=== PATIENT | female | born 1955 | race Caucasian/White ===

== ENCOUNTER 2020-03-30 09:57 | Outpatient (REF) | payer OTHER, SELFPAY ==
[2020-03-30 10:25] LABS: COVID-19 Test Positive (Negative)
== END 2020-03-30 09:58 | disposition home or self-care (01) ==
LOC: HO.EMPCOV 09:57
PROVIDERS: PCP Internal Medicine; Visit Provider Internal Medicine
DX: Z20.828 Contact with and (suspected) exposure to other viral communicable diseases (principal)
CPT/HCPCS: 87635; C9803

== ENCOUNTER → 2020-06-04 14:41 | Outpatient (BNVA) | payer MEDICARE, OTHER, SELFPAY | PROVIDERS: PCP Internal Medicine; Visit Provider Hospitalist | DX: B94.8 Sequelae of other specified infectious and parasitic diseases (principal); J40 Bronchitis, not specified as acute or chronic; R00.0 Tachycardia, unspecified; R01.1 Cardiac murmur, unspecified; Z86.16 Personal history of COVID-19 | CPT/HCPCS: 99202 ==

== ENCOUNTER 2020-06-09 11:30 | Outpatient (REF) | payer MEDICARE, OTHER, SELFPAY ==
[2020-06-09 12:17] LABS: MANUAL DIFF FLAG NO
[2020-06-09 12:21] LABS: Basophils Percent Auto 0.1 % (0-2); Hematocrit 43.6 % (37-47); Hemoglobin 14.6 g/dl (12.0-16.0); Imm Gran Abs Auto 0.05 X10*3/uL (0.00-0.03); Imm Gran Pct Auto 0.5 % (0.0-0.4); Lymphocytes Absolute Auto 1.1 X10*3/uL (1.2-4.9); Lymphocytes Percent Auto 10.2 % (20-40); Mean Corpuscular HGB Conc 33.5 g/dl (31.0-35.0); Mean Corpuscular Hemoglobin 31.5 pg (27.0-33.0); Mean Corpuscular Volume 94.2 fL (80-98); Monocytes Absolute Auto 0.4 X10*3/uL (0.1-1.2); Monocytes Percent Auto 3.7 % (2-11); Neutrophils Absolute Auto 8.9 X10*3/uL (2.0-8.3); Neutrophils Percent Auto 85.5 % (45-73); Platelet Count 478 X10*3/uL (160-400); Red Blood Count 4.63 X10*6/uL (4.20-5.50); Red Cell Distribution Width 12.9 % (11.0-16.0); White Blood Count 10.4 X10*3/uL (4.8-10.8)
[2020-06-09 12:28] LABS: D Dimer < 200 NG/ML
[2020-06-09 13:22] LABS: Anion Gap 15 (12-20); Blood Urea Nitrogen 26 mg/dL (9-16); Calcium 9.9 mg/dL (8.4-10.2); Carbon Dioxide 28 mmol/L (22-29); Chloride 100 mmol/L (96-108); Estimated Glomerular Filt Rate > 60; Glucose Random 106 mg/dL (60-115); Potassium 4.3 mmol/L (3.3-5.1); Sodium 139 mmol/L (135-145)
[2020-06-09 13:32] LABS: Erythrocyte Sedimentation Rate 6 MM/HR (0-20)
[2020-06-10 08:36] LABS: SARS COV2 IgG Positive (Negative)
[2020-06-10 18:17] LABS: Immunoglobulin E 732 kU/L (<OR=114)
== END 2020-06-09 11:31 | disposition home or self-care (01) ==
LOC: HO.LAB 11:30
PROVIDERS: PCP Internal Medicine; Visit Provider Hospitalist
DX: U07.1 COVID-19 (principal); J40 Bronchitis, not specified as acute or chronic
CPT/HCPCS: 36415; 80048; 82785; 85025; 85379; 85652; 86769

== ENCOUNTER → 2020-07-24 13:53 | Outpatient (BNVA) | payer MEDICARE, OTHER, SELFPAY | PROVIDERS: PCP Internal Medicine; Visit Provider Hospitalist | DX: J45.40 Moderate persistent asthma, uncomplicated (principal); J00 Acute nasopharyngitis [common cold]; Z79.899 Other long term (current) drug therapy | CPT/HCPCS: 99212 ==

== ENCOUNTER 2020-09-16 11:24 | Outpatient (REF) | payer MEDICARE, OTHER, SELFPAY ==
[2020-09-17 04:25] LABS: SARS COV2 IgG Positive (Negative)
== END 2020-09-16 11:25 | disposition home or self-care (01) ==
LOC: HO.LAB 11:24
PROVIDERS: PCP Internal Medicine; Visit Provider Hospitalist
DX: U07.1 COVID-19 (principal)
CPT/HCPCS: 36415; 86769

== ENCOUNTER 2020-11-17 14:06 | Outpatient (REF) | payer MEDICARE, OTHER, SELFPAY ==
[2020-11-18 08:29] LABS: SARS COV2 IgG Positive (Negative)
== END 2020-11-17 14:07 | disposition home or self-care (01) ==
LOC: HO.LAB 14:06
PROVIDERS: PCP Internal Medicine; Visit Provider Hospitalist
DX: B94.8 Sequelae of other specified infectious and parasitic diseases (principal)
CPT/HCPCS: 36415; 86769

== ENCOUNTER → 2020-11-23 14:37 | Outpatient (BNVA) | payer MEDICARE, OTHER, SELFPAY | PROVIDERS: PCP Internal Medicine; Visit Provider Hospitalist | DX: J41.1 Mucopurulent chronic bronchitis (principal); J18.9 Pneumonia, unspecified organism; L50.0 Allergic urticaria; B94.8 Sequelae of other specified infectious and parasitic diseases | CPT/HCPCS: 99212 ==

== ENCOUNTER → 2020-12-28 13:24 | Outpatient (BNVA) | payer MEDICARE, OTHER, SELFPAY | PROVIDERS: PCP Internal Medicine | DX: Z20.822 Contact with and (suspected) exposure to COVID-19 (principal) | CPT/HCPCS: 36415; 87635 ==

== ENCOUNTER 2021-02-09 12:09 | Outpatient (REF) | payer MEDICARE, SELFPAY ==
[2021-02-10 07:54] LABS: SARS COV2 IgG Positive (Negative)
== END 2021-02-09 12:10 | disposition home or self-care (01) ==
LOC: HO.LAB 12:09
PROVIDERS: PCP Internal Medicine; Visit Provider Hospitalist
DX: Z01.84 Encounter for antibody response examination (principal); B94.8 Sequelae of other specified infectious and parasitic diseases
CPT/HCPCS: 36415; 86769

== ENCOUNTER → 2021-02-19 13:14 | Outpatient (BNVA) | payer MEDICARE, OTHER, SELFPAY | PROVIDERS: PCP Internal Medicine; Visit Provider Hospitalist | DX: J45.41 Moderate persistent asthma with (acute) exacerbation (principal); L50.0 Allergic urticaria; J41.1 Mucopurulent chronic bronchitis; B94.8 Sequelae of other specified infectious and parasitic diseases; R00.0 Tachycardia, unspecified; Z87.891 Personal history of nicotine dependence; Z88.1 Allergy status to other antibiotic agents; J30.2 Other seasonal allergic rhinitis | CPT/HCPCS: 99212 ==

== ENCOUNTER 2021-05-21 15:03 | Outpatient (REF) | payer MEDICARE, OTHER, SELFPAY ==
[2021-05-21 15:31] LABS: MANUAL DIFF FLAG NO
[2021-05-21 15:54] LABS: Basophils Percent Auto 0.2 % (0-2); Eosinophils Percent Auto 0.1 % (0-4); Hematocrit 44.2 % (37.0-47.0); Hemoglobin 14.5 g/dl (12.0-16.0); Imm Gran Pct Auto 0.7 % (0.0-0.4); Lymphocytes Absolute Auto 1.1 X10*3/uL (1.2-4.9); Lymphocytes Percent Auto 7.4 % (20-40); Mean Corpuscular HGB Conc 32.8 g/dl (31.0-35.0); Mean Corpuscular Hemoglobin 31.3 pg (27.0-33.0); Mean Corpuscular Volume 95.5 fL (80.0-98.0); Mean Platelet Volume 10.9 fL (9.4-12.3); Monocytes Absolute Auto 0.6 X10*3/uL (0.1-1.2); Monocytes Percent Auto 3.6 % (2-11); Neutrophils Absolute Auto 13.3 x10*3/uL (2.0-8.3); Platelet Count 317 X10*3/uL (160-400); Red Blood Count 4.63 X10*6/uL (4.20-5.50); Red Cell Distribution Width 12.7 % (11.0-16.0); White Blood Count 15.1 X10*3/uL (4.8-10.8)
[2021-05-22 13:37] LABS: Immunoglobulin A 301 mg/dL (70-320); Immunoglobulin M 133 mg/dL (50-300)
[2021-05-24 17:17] LABS: Complement C3 127 mg/dL (83-193)
[2021-05-24 19:05] LABS: Immunoglobulin G Subclass 1 468 mg/dL (382-929); Immunoglobulin G Subclass 2 405 mg/dL (241-700); Immunoglobulin G Subclass 3 26 mg/dL (22-178); Immunoglobulin G Subclass 4 82.1 mg/dL (4-86); Immunoglobulin G Total 1058 mg/dL (600-1540)
[2021-05-24 22:32] LABS: Immunoglobulin E 2403 kU/L (<OR=114)
[2021-05-26 14:51] LABS: Tetanus Antitoxiod Antibody 4.67 IU/mL
== END 2021-05-21 15:04 | disposition home or self-care (01) ==
LOC: HO.LAB 15:03
PROVIDERS: PCP Internal Medicine; Visit Provider Allergy & Immunology
DX: J32.9 Chronic sinusitis, unspecified (principal)
CPT/HCPCS: 82784; 82785; 85025; 86160; 86317; 86774

== ENCOUNTER → 2021-05-24 15:06 | Outpatient (BNVA) | payer MEDICARE, OTHER, SELFPAY | PROVIDERS: PCP Internal Medicine; Visit Provider Hospitalist | DX: J45.41 Moderate persistent asthma with (acute) exacerbation (principal); J41.1 Mucopurulent chronic bronchitis; L50.0 Allergic urticaria; R01.1 Cardiac murmur, unspecified; B94.8 Sequelae of other specified infectious and parasitic diseases | CPT/HCPCS: 99212 ==

== ENCOUNTER 2021-06-18 12:40 | Outpatient (REF) | payer MEDICARE, OTHER, SELFPAY ==
[2021-06-18 13:10] LABS: Hemoglobin 14.5 g/dl (12.0-16.0); Mean Corpuscular Hemoglobin 31.4 pg (27.0-33.0); Mean Corpuscular Volume 95.2 fL (80.0-98.0); Mean Platelet Volume 9.1 fL (9.4-12.3); Platelet Count 601 X10*3/uL (160-400); Red Blood Count 4.62 X10*6/uL (4.20-5.50); Red Cell Distribution Width 13.1 % (11.0-16.0); White Blood Count 13.8 X10*3/uL (4.8-10.8)
[2021-06-18 13:46] LABS: Alanine Aminotransferase 15 U/L (0-31); Albumin Level 4.3 g/dL (3.5-5.0); Alkaline Phosphatase 111 U/L (39-117); Anion Gap 14 (12-20); Aspartate Amino Transferase 14 U/L (5-31); Bilirubin Total 0.9 mg/dL (0.0-1.0); Blood Urea Nitrogen 20 mg/dL (9-16); Calcium 10.3 mg/dL (8.4-10.2); Carbon Dioxide 28 mmol/L (22-29); Chloride 101 mmol/L (96-108); Cholesterol 213 mg/dL; Estimated Glomerular Filt Rate > 60; Glucose Random 150 mg/dL (60-115); HDL Cholesterol 61 mg/dL; Iron 120 mcg/dL (30-160); Potassium 4.6 mmol/L (3.3-5.1); Sodium 138 mmol/L (135-145); Total Protein 7.6 g/dL (6.5-8.0)
[2021-06-18 14:04] LABS: Ferritin 59 ng/mL (10-250); TSH reflex Free T4 0.47 uIU/mL (0.32-4.0)
[2021-06-18 14:17] LABS: Vitamin B12 397 pg/mL (200-900)
[2021-06-18 14:22] LABS: Percent Iron Saturation 31 % (15-50); Total Iron Binding Capacity 382 mcg/dL (228-428); Unsaturated Iron Binding 262 ug/dL
[2021-06-19 10:26] LABS: LDL Cholesterol Direct 142 mg/dL (<100)
== END 2021-06-18 12:41 | disposition home or self-care (01) ==
LOC: HO.LAB 12:40
PROVIDERS: PCP Internal Medicine; Visit Provider Internal Medicine
DX: Z00.00 Encounter for general adult medical examination without abnormal findings (principal); J32.9 Chronic sinusitis, unspecified; J30.9 Allergic rhinitis, unspecified; Z86.16 Personal history of COVID-19; Z85.828 Personal history of other malignant neoplasm of skin
CPT/HCPCS: 36415; 80053; 82306; 82465; 82607; 82728; 83540; 83718; 83721; 84443; 85027

== ENCOUNTER → 2021-07-01 11:09 | Outpatient (BNVA) | payer MEDICARE, OTHER, SELFPAY | PROVIDERS: PCP Internal Medicine; Visit Provider Hospitalist | DX: J41.1 Mucopurulent chronic bronchitis (principal); J45.41 Moderate persistent asthma with (acute) exacerbation; J32.9 Chronic sinusitis, unspecified; R01.1 Cardiac murmur, unspecified | CPT/HCPCS: 99212 ==

== ENCOUNTER 2021-07-23 13:29 | Outpatient (REF) | payer MEDICARE, OTHER, SELFPAY ==
[2021-07-23 13:57] LABS: MANUAL DIFF FLAG NO
[2021-07-23 14:13] LABS: Basophils Absolute Auto 0.1 X10*3/uL (0.0-0.2); Basophils Percent Auto 0.4 % (0-2); Eosinophils Absolute Auto 0.5 X10*3/uL (0.0-0.4); Eosinophils Percent Auto 3.7 % (0-4); Hematocrit 43.5 % (37.0-47.0); Hemoglobin 13.9 g/dl (12.0-16.0); Imm Gran Abs Auto 0.06 X10*3/uL (0.00-0.03); Imm Gran Pct Auto 0.4 % (0.0-0.4); Lymphocytes Absolute Auto 1.9 X10*3/uL (1.2-4.9); Lymphocytes Percent Auto 14.2 % (20-40); Mean Corpuscular Hemoglobin 30.9 pg (27.0-33.0); Mean Corpuscular Volume 96.7 fL (80.0-98.0); Mean Platelet Volume 9.5 fL (9.4-12.3); Monocytes Absolute Auto 0.8 X10*3/uL (0.1-1.2); Monocytes Percent Auto 5.8 % (2-11); Neutrophils Absolute Auto 10.1 x10*3/uL (2.0-8.3); Neutrophils Percent Auto 75.5 % (45-73); Platelet Count 416 X10*3/uL (160-400); Red Cell Distribution Width 13.1 % (11.0-16.0); White Blood Count 13.4 X10*3/uL (4.8-10.8)
== END 2021-07-23 13:30 | disposition home or self-care (01) ==
LOC: HO.LAB 13:29
PROVIDERS: PCP Internal Medicine; Visit Provider Hospitalist
DX: J32.9 Chronic sinusitis, unspecified (principal); J45.41 Moderate persistent asthma with (acute) exacerbation
CPT/HCPCS: 36415; 85025

== ENCOUNTER → 2021-08-06 10:04 | Outpatient (BNVA) | payer MEDICARE, OTHER, SELFPAY | PROVIDERS: PCP Internal Medicine; Visit Provider Hospitalist | DX: J45.909 Unspecified asthma, uncomplicated (principal) | CPT/HCPCS: 99211 ==

== ENCOUNTER → 2021-08-27 14:01 | Outpatient (REF) | payer MEDICARE, OTHER, SELFPAY ==
--- NOTE | 2021-08-27 14:04 | CA_ITS ---
Transthoracic Echocardiogram Patient (Last, First, Middle): Michelle Carrillo A Gender: Female Date of : 1955 Age: 66 Procedure Date: 08/27/2021 Procedure Type: Transthoracic Echocardiogram Location: OP Height: 157.48 cm Weight: 49.9 kg BSA: 1.48 m2 Heart Rate: bpm BP: 118 / 58 mmHg Linux Kernel Developer: Referring MD: Abhijit Mary MD Symptoms: I27.20 - Pulmonary hypertension, unspecified Study Quality: Fair ECG Rhythm: Sinus Conclusions: - The left ventricular systolic function is normal. The calculated ejection fraction is 64% by biplane method. - No obvious valvular pathology seen on this study. - The pulmonary artery systolic pressure is normal. Findings Left Ventricle Normal left ventricular cavity size. There is normal left ventricular wall thickness. The left ventricular systolic function is normal. The calculated ejection fraction is 64% by biplane method. There is no evidence of regional wall motion abnormalities. Diastolic function is normal for age. Right Ventricle Normal right ventricular cavity size and systolic function. Atria Both atria are normal in size. Aortic Valve The aortic valve was not well visualized. There is no aortic valve stenosis. There is no aortic valve regurgitation. Mitral Valve The mitral valve appears normal. There is no mitral valve regurgitation. There is no mitral valve stenosis. Pulmonic Valve The pulmonic valve is likely normal. Tricuspid Valve There is trace tricuspid valve regurgitation. The pulmonary artery systolic pressure is normal. Great Vessels The aortic annulus, sinuses of valsalva, and asc aorta are normal in size. Venous The inferior vena cava is normal in size and collapses greater than 50% with inspiration. Pericardium/Pleural There is no evidence of pericardial effusion. Prior Study Comparison No prior study available for comparison. Recommendations, Care & Conclusions No obvious valvular pathology seen on this study. Measurements 2D Linear Measurements IVSd: 0.88 0.6-0.9/0.6-1.0 cm LVIDd: 3.68 3.9-5.3/4.2-5.9 cm LVIDd Index: 2.49 2.4-3.2/2.2-3.1 cm/m2 LVIDs: 2.07 2.0-3.6 cm LVPWd: 0.98 0.7-1.1 cm Ao Root: 2.90 2.1-3.5 cm LA Diam: 2.90 2.7-3.8/3.0-4.0 cm LAIDs Index: 1.96 1.5-2.3 cm/m2 LV Mass: 125.77 67-162/88-224 g LV Mass Index: 84.98 43-95/49-115 g/m2 LVOT Diam: 2.00 3.0+(-)1.3 cm 2D Systolic Function EF 4C: 65.40 >55% EF 2C: 60.80 >55% EF BiP: 63.60 >55% Mitral Valve MV Pk E: 0.83 MV PK A: 0.73 MV Decel Time: 176.00 E/A: 1.10 E'Lateral: 7.62 E'Medial: 6.09 E/E' Med: 13.70 E/E' Lat: 10.90 PHT: 52.00 MVA PHT: 4.23 Decel [place]: 4.73 Aortic Valve AoV Pk Alexis: 1.48 AoV Mn Alexis: 0.98 AoV VTI: 0.27 AoV Pk Grad: 9.00 Aov Mn Grad: 5.00 JOSE Cont.VTI: 2.29 LVOT LVOT Pk Alexis: 1.16 LVOT Mn Alexis: 0.70 LVOT VTI: 0.20 LVOT Pk Grad: 5.00 LVOT Mn Grad: 2.00 LVOT Diam: 2.00 LVOT Area: 3.14 Diastolic Function MV Pk E: 0.83 MV Pk A: 0.73 E/A: 1.10 E'Medial: 6.09 E/E' Med: 13.70 E' Laterial: 7.62 E/E' Lat: 10.90 Right Ventricle TAPSE (mm): 27.00 TVS' Alexis: 14.00 Tricuspid Valve TR Pk Alexis: 1.85 TR Pk Grad: 14.00 RA Press: 3.00 RVSP: 17.00 Great Vessels Aorta Ao Root-2D: 2.90 2.0-3.7 cm Ao Asc: 2.70 2.1-3.4 cm Pulmonary Valve PV Pk Alexis: 1.29 Peak PV Grad: 7.00 Updated in Other Vendor System with Status of Final Domingo Borden MD electronically signed on 08/28/2021 11:07:24 AM with status of Final
== END ==
LOC: HO.CARD 14:01
PROVIDERS: PCP Internal Medicine; Visit Provider Hospitalist
DX: R00.0 Tachycardia, unspecified (principal); R01.1 Cardiac murmur, unspecified; I27.20 Pulmonary hypertension, unspecified
CPT/HCPCS: 93306

== ENCOUNTER → 2021-09-14 10:30 | Outpatient (BNVA) | payer MEDICARE, OTHER, SELFPAY | PROVIDERS: PCP Internal Medicine; Visit Provider Hospitalist | DX: J45.50 Severe persistent asthma, uncomplicated (principal); J32.9 Chronic sinusitis, unspecified; R01.1 Cardiac murmur, unspecified; L30.9 Dermatitis, unspecified | CPT/HCPCS: 99212 ==

== ENCOUNTER → 2021-12-29 10:45 | Outpatient (BNVA) | payer MEDICARE, OTHER, SELFPAY | PROVIDERS: PCP Internal Medicine; Visit Provider Hospitalist | DX: J45.50 Severe persistent asthma, uncomplicated (principal); J32.9 Chronic sinusitis, unspecified; R01.1 Cardiac murmur, unspecified; L30.9 Dermatitis, unspecified | CPT/HCPCS: 99212 ==

== ENCOUNTER → 2022-03-02 11:29 | Outpatient (BNVA) | payer MEDICARE, OTHER, SELFPAY | PROVIDERS: PCP Internal Medicine; Visit Provider Hospitalist | DX: J45.50 Severe persistent asthma, uncomplicated (principal); J01.90 Acute sinusitis, unspecified; R01.1 Cardiac murmur, unspecified; L30.9 Dermatitis, unspecified | CPT/HCPCS: 99212 ==

== ENCOUNTER 2022-03-08 13:20 | Outpatient (REF) | payer MEDICARE, OTHER, SELFPAY ==
--- NOTE | ~2022-03-08 | MM_ITS ---
EXAMINATION: BONE DENSITOMETRY CLINICAL INDICATION: Long-term (current) use of systemic steroids. COMPARISON: This is the patient's baseline examination. TECHNIQUE: Using a Sounday DXA System (software version: 13.1) manufactured by [employer], dual-energy x-ray absorptiometry was performed of the lumbar spine and left hip. The images are of good technical quality. Summary results are attached. FINDINGS: AP SPINE L1-L4: BMD 0.783 g/cm2, Z-score -1.1, T-score -3.3, osteoporosis. LEFT FEMUR, NECK: BMD 0.658 g/cm2, Z-score -0.8, T-score -2.7, osteoporosis. LEFT FEMUR, TOTAL: BMD 0.661 g/cm2, Z-score -1.0, T-score -2.7, osteoporosis. IDENTIFIED RISK FACTORS: Menopause. HISTORY OF FRACTURE: None listed. MEDICATIONS: Calcium supplement and/or multivitamin. Vitamin D. MM/XR DEXA axial skeleton IMPRESSION: 1. DIAGNOSIS: Osteoporosis based on the lowest T-score value of -3.3 in the lumbar spine applying World Health Organization criteria. 2. 10-YEAR FRACTURE RISK PREDICTION, FRAX: According to the guidelines, FRAX calculation should only be performed on patients in the osteopenia bone density category.?Therefore, FRAX was not performed on this patient.? 3. Treatment Recommendations: NOF guidelines recommend consideration for treatment in postmenopausal women and men age 50 and older presenting with the following: -A hip or vertebral (clinical or morphometric) fracture. -T-score less than or equal to -2.5 at the femoral neck or spine after appropriate evaluation to exclude secondary causes. -Low bone mass at the hip or spine and a 10-year fracture probability by FRAX of greater than or equal to 3% for hip fracture or greater than or equal to 20% for major osteoporotic fracture based on the [place] adapted WHO algorithm. 4. Other Recommendations: All treatment decisions require clinical judgment and consideration of individual patient factors, including patient preferences, comorbidities, previous drug use, risk factors not captured in the FRAX model (e.g. frailty, falls, vitamin D deficiency, increased bone turnover, interval significant decline in bone density) and possible under or overestimation of fracture risk by FRAX. Additional medical evaluation for secondary cause of low bone mineral density may be appropriate. FUTURE SCAN RECOMMENDATION: People with diagnosed cases of osteoporosis or at high risk for fracture should have regular bone mineral density tests. For patients eligible for Medicare, routine testing is allowed once every 2 years. The testing frequency can be increased to one year for patients who have rapidly progressing disease, those who are receiving or discontinuing medical therapy to restore bone mass, or have additional risk factors.
== END 2022-03-08 13:21 | disposition home or self-care (01) ==
LOC: HO.MAMMO 13:20
PROVIDERS: PCP Internal Medicine; Visit Provider Allergy & Immunology
DX: Z13.820 Encounter for screening for osteoporosis (principal); Z78.0 Asymptomatic menopausal state
CPT/HCPCS: 77080

== ENCOUNTER 2022-03-14 13:28 | Outpatient (REF) | payer MEDICARE, OTHER, SELFPAY ==
[2022-03-14 13:49] LABS: MANUAL DIFF FLAG NO
[2022-03-14 14:28] LABS: Basophils Percent Auto 0.3 % (0-2); Hematocrit 42.8 % (37.0-47.0); Imm Gran Abs Auto 0.04 X10*3/uL (0.00-0.03); Imm Gran Pct Auto 0.4 % (0.0-0.4); Lymphocytes Absolute Auto 1.2 X10*3/uL (1.2-4.9); Lymphocytes Percent Auto 11.2 % (20-40); Mean Corpuscular HGB Conc 32.7 g/dl (31.0-35.0); Mean Corpuscular Hemoglobin 30.9 pg (27.0-33.0); Mean Corpuscular Volume 94.5 fL (80.0-98.0); Mean Platelet Volume 9.7 fL (9.4-12.3); Monocytes Absolute Auto 0.5 X10*3/uL (0.1-1.2); Monocytes Percent Auto 4.4 % (2-11); Neutrophils Absolute Auto 8.8 x10*3/uL (2.0-8.3); Neutrophils Percent Auto 83.7 % (45-73); Platelet Count 435 X10*3/uL (160-400); Red Blood Count 4.53 X10*6/uL (4.20-5.50); Red Cell Distribution Width 12.9 % (11.0-16.0); White Blood Count 10.5 X10*3/uL (4.8-10.8)
[2022-03-14 15:21] LABS: Alanine Aminotransferase 18 U/L (0-31); Albumin Level 4.1 g/dL (3.5-5.0); Alkaline Phosphatase 87 U/L (39-117); Anion Gap 17 (12-20); Aspartate Amino Transferase 17 U/L (5-31); Bilirubin Total 1.2 mg/dL (0.0-1.0); Blood Urea Nitrogen 21 mg/dL (9-16); Calcium 9.3 mg/dL (8.4-10.2); Carbon Dioxide 21 mmol/L (22-29); Chloride 105 mmol/L (96-108); Cholesterol 210 mg/dL; Estimated Glomerular Filt Rate > 60; Ferritin 101 ng/mL (10-250); Glucose Random 160 mg/dL (60-115); HDL Cholesterol 63 mg/dL; Iron 117 mcg/dL (30-160); Percent Iron Saturation 39 % (15-50); Potassium 4.5 mmol/L (3.3-5.1); Sodium 138 mmol/L (135-145); Total Iron Binding Capacity 297 mcg/dL (228-428); Total Protein 6.8 g/dL (6.5-8.0); Unsaturated Iron Binding 180 ug/dL; Vitamin D 25-OH Total 44.6 ng/mL (>30)
[2022-03-14 15:41] LABS: Vitamin B12 311 pg/mL (200-900)
[2022-03-15 08:47] LABS: LDL Cholesterol Direct 136 mg/dL (<100)
== END 2022-03-14 13:29 | disposition home or self-care (01) ==
LOC: HO.LAB 13:28
PROVIDERS: PCP Internal Medicine; Visit Provider Internal Medicine
DX: Z00.00 Encounter for general adult medical examination without abnormal findings (principal); J30.9 Allergic rhinitis, unspecified; J32.9 Chronic sinusitis, unspecified; Z86.16 Personal history of COVID-19; Z85.828 Personal history of other malignant neoplasm of skin
CPT/HCPCS: 36415; 80053; 82306; 82465; 82607; 82728; 83540; 83718; 83721; 84443; 85025

== ENCOUNTER → 2022-05-18 11:36 | Outpatient (BNVA) | payer MEDICARE, OTHER, SELFPAY | PROVIDERS: PCP Internal Medicine; Visit Provider Hospitalist | DX: J45.50 Severe persistent asthma, uncomplicated (principal); J32.9 Chronic sinusitis, unspecified; R01.1 Cardiac murmur, unspecified; L30.9 Dermatitis, unspecified | CPT/HCPCS: 99212 ==

== ENCOUNTER 2022-06-27 13:25 | Outpatient (REF) | payer MEDICARE, OTHER, SELFPAY ==
[2022-06-27 15:37] LABS: CT PCR NOT DETECTED (Not Detect.); NG PCR NOT DETECTED (Not Detect.)
[2022-06-28 14:09] LABS: HIV AB/AG Nonreactive (Nonreactive); HIV Num 1 0.07 S/CO (0.00-0.99); ~HepC Num1 0.18 S/CO (0.00-0.79); ~Hepatitis C Antibody Nonreactive (Nonreactive)
[2022-06-28 14:25] LABS: Syphilis Screen Nonreactive (Nonreactive)
[2022-07-04 22:43] LABS: Herpes Simplex Type 1 IgG <0.90 index; Herpes Simplex Type 2 IgG <0.90 index
== END 2022-06-27 13:26 | disposition home or self-care (01) ==
LOC: HO.LAB 13:25
PROVIDERS: PCP Internal Medicine; Visit Provider Internal Medicine
DX: Z11.4 Encounter for screening for human immunodeficiency virus [HIV] (principal); Z11.59 Encounter for screening for other viral diseases; Z20.2 Contact with and (suspected) exposure to infections with a predominantly sexual mode of transmission
CPT/HCPCS: 0353U; 86695; 86696; 86780; 86803; 87389

== ENCOUNTER 2023-02-28 15:16 | Outpatient (REF) | payer MEDICARE, OTHER, SELFPAY ==
--- NOTE | ~2023-02-28 | XR_ITS ---
EXAMINATION: XR CHEST CLINICAL INFORMATION: Cough, rhonchi left lung. COMPARISON: None available. TECHNIQUE: 2 views of the chest were obtained. FINDINGS: Normal appearance of the cardiomediastinal structures. No effusions or pneumothoraces. Mild apical pleural-parenchymal scarring the lungs is noted. No focal pulmonary consolidation identified. Grossly normal pattern of pulmonary vasculature is visualized. Mild multilevel anterior endplate osteophytosis of the thoracic spine noted. Mild flattening of the hemidiaphragms is noted (lateral cord 2.5 cm) and prominence of the retrosternal/anterior upper lung zone lung volumes is noted. XR/XR chest 2V IMPRESSION: *No acute cardiopulmonary abnormalities identified. No focal pulmonary consolidation. No evidence of active pulmonary edema. *Mildly elevated lung volumes. Findings may represent COPD. *Chronic appearing biapical pleural parenchymal scarring of the lungs.
== END 2023-02-28 15:17 | disposition home or self-care (01) ==
LOC: HO.XRAY 15:16
PROVIDERS: PCP Internal Medicine; Visit Provider Internal Medicine
DX: R05.9 Cough, unspecified (principal)
CPT/HCPCS: 71046

== ENCOUNTER 2023-03-10 10:32 | Outpatient (AMB) | payer MEDICARE, OTHER, SELFPAY ==
[2023-03-10 10:51] VITALS: PULSE 88; O2SAT 99; BMI 19.2
--- NOTE | 2023-03-10 10:51 | A.OFFVIS_ITS ---
Intake Vital Signs 03/10/23 10:51 Height 5 ft 2 in Weight 105 lb BMI 19.2 Pulse 88 Pulse Source Pulse Oximeter Pulse Oximetry (%) 99 Oxygen Delivery Method Room Air Intake Visit Reasons: coughing/wheezing Clean Room Operator Required: No Allergies sulfamethoxazole [From Bactrim] Allergy (Unknown, Verified 03/10/23 10:52) Unknown trimethoprim [From Bactrim] Allergy (Unknown, Verified 03/10/23 10:52) Unknown Bactrum Allergy (Severe, Uncoded 03/10/23 10:52) Rash Seasonal Allergy (Severe, Uncoded 03/10/23 10:52) Rash HPI HPI Comments History of Present Illness Details The patient is a 67-year-old woman who was been very healthy until recently when she was diagnosed with COVID-19 infection approximately 8 weeks ago. 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 She did complaint of some mild shortness of breath while she was sick. However, her symptoms were minimal and she was able to continue with her activities of daily living. Once she completed her course 18 she was able to go back to work and also back to the gym as she spends a lot of time the gym. However, several weeks ago she noticed that she was having worsening cough and shortness of breath. She went to an urgent care there she was sent to [place] because of concerns of blood clots. She did have additional labs demonstrating a negative D-dimer. Her lower extremity Dopplers were negative for any clots. She had an x-ray done demonstrating some minimal atelectasis in some minimal airspace disease. The patient was treated with a course of azithromycin x2 and then was given a course of Augmentin. More recently she went back to urgent care because of ongoing worsening cough productive sputum with greenish color. She was evaluated on exam does concerns of bronchopneumonia. The patient was given another course of prednisone in addition to that she was given a course of levofloxacin that she will start if she was no better. At this point the patient is taking for total 40 mg of prednisone and has not started antibiotics as of yet. She was noted to be significantly tachycardic in the office so therefore we had to go for 6 minutes walk test. Heart rate did increase to 129. The patient was short of breath but not hypoxic. She maintain a pulse ox of 96%. At this point will treat the patient for bronchitis specially since her white count was elevated had a left shift when she went to [facility] for blood work. Based on the postviral super infections to because content this will be Staph aureus and also Streptococcus. 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 Doxycycline would be a good option for her to treat these organisms at this time. If the patient is not better in the next few days and she is going to undergo additional blood work. 05/24/2021 the patient is here for a pulmonary follow-up visit. Since we last spoke again she became sick with a sinus congestion and sinus pressure. she did follow-up with an loading unit operator powder charging. She was placed on Augmentin. While having her symptoms she started developing worsening chest tightness and also started prednisone taper from prednisone she had home already. On prednisone the patient feels a lot better. We again reviewed her blood work demonstrating sig nificant elevation of her igE. therefore, she is going to undergo formal allergy testing and also additional laboratory data and to assess her immune system. Currently her respiratory status is stable while on the prednisone. We did talk about her ongoing prednisone use that is not healthy. Based on her significant allergies and elevations in her IgE she will be a good candidate for biologic therapy. However, now that she is working closely with Allergy or allow her to be further assessed and evaluated. in the meantime she continues with her respiratory medications with good effect. 07/01/2021 the patient is here for a pulmonary follow-up visit. She is having hard time with her sinus congestion and chest tightness again. She feels significantly congested and has a hard time breathing. She is also having increasing coughing. She did have additional blood work done by Allergy. Her IgE levels even higher now about 2500. Her eosinophils are within normal limits. This consistent with allergic asthma and allergic rhinosinusitis. The patient has had allergy testing with significant allergies to mold in addition to environmental allergens. She does not have any pets at home at this time. He denies any mold in her house at this time. Still her respiratory symptoms have been getting worse. She is scheduled to undergo a CT scan of the sinuses from her allergy evaluation. No evidence of any nasal polyps on my examination. She continues to struggle and will require additional prednisone today. Therefore I will start the process to get her on Xolair. She can follow up in see if she will get allergy shots like she did in the past. Unfortunately after 4 years of allergy shots he did not have any relief so it is something that she needs to consider. She also has using the Neti bottle. However, she is using well water. Explained to her how seriously dangerous status. She needs to get distilled water only for her dating bottle. She is going to continue with respiratory therapy. 09/14/2021 the patient is here for pulmon mariel follow-up visit. Since we last spoke she did start the Dupixent. She did already receive about a month worth of medication. Unfortunate she did developed the flu and subsequently developed a asthma exacerbation along with sinusitis. Therefore she was placed again on prednisone and also antibiotics. She is currently on 20 mg of prednisone. She was evaluated by her laborer stores and she agreed on the start of the Dupixent which I believe will be effective for her once she improves from her sinusitis. She continues on her respiratory therapy including Symbicort. She has not had to use her rescue inhaler as often now. Initially she did go to the ER because of chest tightness and wheezing when she was diagnosed with flu A. 12/29/2021 the patient is here for a pulmonary follow-up visit. Since we last spoke the patient started developing sinusitis again. She did follow-up with her loading unit operator powder charging to start her on a course of antibiotics and also on Medrol Henry. She really was not feeling any better. She does have her ENT appointment coming up in January. In the meantime will start her on Neti bottle with dimple angeles to help her with her significant inflammation. Subsequently after that she started working on the yd and she developed a rash primarily of her upper extremities and also has some areas of rash in her abdomen and inguinal area. Some of the rash especially in her hands and forearms almost have a nodular component and also like vesicular in nature. Although the nap pustules and does not quite look like monkey pox. Denies any fevers or chills. She will continue monitoring closely for any evidence of any pustules. The rash is not painful either. It was itchy but is getting a little better. Since developing the rash she went to urgent care and she was prescribed higher dose of prednisone. On in the meantime she continues on Dupixent Dupixent has been very helpful in helping her with her significant eczema and also asthma symptoms. However, has not completely resolved her issues. She will follow-up with ENT to see if they can help with her significant sinusitis and ultimately if the patient is not better will consider different biologic such as Tezspire. also to note since we last spoke the patient developed acute appendicitis and she did have surgery a [facility]. She healed very well and doing well after that surgery. 03/02/2022 the patient is here again for sick visit. Recently she was evaluated by her loading unit operator powder charging to start her again on prednisone for sinusitis. She was given a short course because the patient is concerned about adverse side effects. Although initially she felt better symptoms are now worse again she has severe nasal congestion difficulty breathing postnasal drip cough. The Dupixent initially was effective for her but seems to be not as effective anymore for her sinuses. Her lungs continue to respond positively to it. My suspicion is that she needs to undergo a surgical intervention in order to get the most effect from the Dupixent. The patient does have significant nasal congestion at this time with inflammation and turbinate and also exudate if discharged. Unfortunately because of her nasal congestion the patient restarted the Afrin. I did recommend that she stop using the Afrin. She continues uses Sudafed and continues to use her nasal sprays Neti bottle with budesonide. The patient is maximized on her respiratory therapy and also nasal therapy and allergy therapy. I believe that the only reasonable option right now is a surgical intervention. Will reach out to her ENTs office to see if we can have her be evaluated potential surgery soon. In the meantime I will give another course of doxycycline and give her a longer course of prednisone at a lower dose. 05/18/2022 the patient is here for a pulm onary follow-up visit. The patient is feeling a lot better. Her sinuses are feeling significantly improved. She is finally responding well to the Dupixent. She continues use the Neti bottle with budesonide and also using her other nasal therapy. Her Symbicort she has not required. She has not required any prednisone since the last time she was provided with. She did require a short course of antibiotics for sinusitis several months ago but otherwise she has been good. The patient has been avoiding Afrin which is important as well. She is going to continue Dupixent at this time. The patient overall is doing well so therefore will continue to monitor closely on her current therapy. No imaging or laboratory studies at this time. 03/10/2023 the patient is here for a sic k visit. Apparently a month ago she traveled to [facility]. There she was exposed to sick contacts and developed a respiratory illness. Subsequently after that she started having worsening chest tightness and wheezing. She has also had worsening cough moderate severity sometimes productive. She did get a course of antibiotics with no significant improvement. The patient has been using her rescue inhaler. She does have a nebulizer which she has not been using it. She did test negative for COVID. I did tell the patient's likely RSV. She did have a chest x-ray which I personally reviewed demonstrating some slight micro nodular densities on the right suggesting some degree of bronchiolitis that will go along with RSV. The patient is willing to go on a course of prednisone. She is also not vaccinated for strep pneumo so therefore will give her a course of doxycycline to treat for both staph and strep postviral bacterial infections. The patient will start using her nebulizer. I will make sure to send medications to the pharmacy. If the patient is no better she will call us for further evaluation. [facility] Medical History (Updated 03/10/23 @ 13:07 by Abhijit Mary MD) Eczema Sinusitis Asthma Bronchitis, mucopurulent recurrent Allergic urticaria Reactive airway disease Murmur Tachycardia Post-COVID syndrome Bronchitis COVID-19 Social History (Updated 02/19/21 @ 13:24 by HANS Francis) Patient Tobacco Use Status: Former Tobacco user Tobacco use type: Cigarette Years Smoked: 20+ years Review of Systems Const Denies chills, Reports fatigue and Denies night sweats ENT Denies change in voice, Denies lip swelling, Denies mouth pain, Reports nasal congestion, Denies nasal discharge, Denies post nasal drip, Denies sinus pain, Denies sinus pressure, Reports sore throat, Denies throat swelling and Denies tongue swelling Card Denies chest pain Resp Reports change in phlegm color (green), Reports chest congestion, Reports cough, Denies hemoptysis, Denies pain on inspiration, Denies pain with cough and Reports wheezing GI Denies abdominal pain Musc Denies no additional complaints Skin/Breast Reports rash Neuro Denies Neuro-related abnormal movements Psych Denies no additional complaints Endo Reports fatigue Vincent/Lymph Denies easy bleeding and Denies lymphadenopathy Aller/Immun Denies urticaria, Denies lip swelling, Reports seasonal rhinorrhea, Denies throat swelling, Denies tongue swelling and Reports wheezing Physical Exam Vital Signs: Last Vital Signs Pulse 88 03/10/23 10:51 Pulse Ox 99 03/10/23 10:51 Oxygen Delivery Method Room Air 03/10/23 10:51 BMI result Body Mass Index 19.2 Const General: alert HEENT General nose exam: Abnormal mucous membranes and turbinates present erythematous on the left and Nasal discharge present purulent Throat: Yes postnasal drainage and Yes cobblestoning Neck Neck: Yes normal visual inspection, Yes full ROM and Yes no lymphadenopathy Chest Chest palpation & inspection: normal inspection of the chest Resp Effort & Inspection: normal respiratory effort and prolonged expiratory phase Auscultation: no rhonchi, wheezes and diminished lung sounds Cardio Rate: regular rate and tachycardic Rhythm: regular rhythm Heart sounds: S1 normal heart sound present, S2 normal heart sound present and Murmur heart sound present systolic II/ and at the right sternal border GI Palpation (GI): Soft to palpation and nontender Auscultation: normal bowel sounds Skin Rashes: rashes noted ( Primarily on both hands and forearms appears to be erythematous/popules) Assessment & Plan Assessment & Plan (1) Asthma: Code(s): J45.909 - Unspecified asthma, uncomplicated Qualifiers: Asthma complication type: with acute exacerbation Asthma persistence: persistent Asthma severity: severe Qualified Code(s): J45.51 - Severe persistent asthma with (acute) exacerbation (2) Murmur: Comment: ECHO was WNL, trivial TR Code(s): R01.1 - Cardiac murmur, unspecified (3) Eczema: Code(s): L30.9 - Dermatitis, unspecified Qualifiers: Eczema type: flexural Qualified Code(s): L20.82 - Flexural eczema (4) Bronchiolitis: Code(s): J21.9 - Acute bronchiolitis, unspecified Plan Start Prednisone taper start Doxycycline Continue Symbicort twice a day as needed short-acting beta agonist as needed Nebulize therapy fluticasone nasal spray continue Dupixent ENT following F/U with Allergy F/U 6-8 months Medications: New prednisone PO daily; Take 2 tabs daily x 5 days, then 1 tablet daily x 5 days 10 days 15 tabs 0RF doxycycline monohydrate 100 mg PO BID 14 days 28 tabs 0RF Refilled albuterol sulfate 2.5 mg (3 mL) inhalation Q6H PRN 90 mL 11RF shortness of breath or wheezing 30 days Coding Level of Care Code Est Pt Level 4 (81074) Diagnoses Severe persistent asthma with acute exacerbation J45.51 Asthma complication type: with acute exacerbation Asthma persistence: persistent Asthma severity: severe Murmur R01.1 Flexural eczema L20.82 Eczema type: flexural Bronchiolitis J21.9 Time Spent (min) 16
== END 2023-03-10 11:05 | disposition home or self-care (01) ==
PROVIDERS: PCP Internal Medicine; Visit Provider Hospitalist
DX: J45.51 Severe persistent asthma with (acute) exacerbation (principal); R01.1 Cardiac murmur, unspecified; L20.82 Flexural eczema; J21.9 Acute bronchiolitis, unspecified
CPT/HCPCS: 99214

== ENCOUNTER → 2023-03-10 10:32 | Outpatient (BNVA) | payer MEDICARE, OTHER, SELFPAY | PROVIDERS: PCP Internal Medicine; Visit Provider Hospitalist | DX: J45.51 Severe persistent asthma with (acute) exacerbation (principal); R01.1 Cardiac murmur, unspecified; J21.9 Acute bronchiolitis, unspecified; L20.82 Flexural eczema | CPT/HCPCS: 99212 ==

== ENCOUNTER 2023-05-05 12:29 | Outpatient (REF) | payer MEDICARE, OTHER, SELFPAY ==
[2023-05-09 14:44] LABS: HCV Log PCR <1.18 NOT DETECTED Log IU/mL (NOT DETECTED); HepC Viral Load <15 NOT DETECTED IU/mL (NOT DETECTED)
[2023-05-09 18:49] LABS: Herpes Simplex Type 1 IgG <0.90 index
== END 2023-05-05 12:30 | disposition home or self-care (01) ==
LOC: HO.LAB 12:29
PROVIDERS: PCP Internal Medicine; Visit Provider Acupuncturist
DX: Z20.2 Contact with and (suspected) exposure to infections with a predominantly sexual mode of transmission (principal)
CPT/HCPCS: 0353U; 86695; 86696; 86780; 87389; 87522

== ENCOUNTER 2023-06-23 11:51 | Outpatient (REF) | payer MEDICARE, OTHER, SELFPAY | END 2023-06-23 11:52 | disposition home or self-care (01) | LOC: HO.MRI 11:51 | PROVIDERS: PCP Internal Medicine; Visit Provider Internal Medicine | DX: Z13.89 Encounter for screening for other disorder (principal) ==

== ENCOUNTER 2023-07-03 13:00 | Outpatient (RCR) | payer MEDICARE, OTHER, SELFPAY | END 2023-07-18 11:05 | disposition home or self-care (01) | LOC: HO.PT 13:00 | PROVIDERS: PCP Internal Medicine; Visit Provider Physician Assistant | DX: S46.211D Strain of muscle, fascia and tendon of other parts of biceps, right arm, subsequent encounter (principal) | CPT/HCPCS: 97110; 97161 ==

== ENCOUNTER 2023-12-11 13:43 | Outpatient (AMB) | payer MEDICARE, OTHER, SELFPAY ==
[2023-12-11 13:46] VITALS: BP 122/64; PULSE 85; O2SAT 98; BMI 19.8
--- NOTE | 2023-12-11 13:46 | A.OFFPC_ITS ---
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 Allergies sulfamethoxazole [From Bactrim] Allergy (Unknown, Verified 12/11/23 13:51) Unknown trimethoprim [From Bactrim] Allergy (Unknown, Verified 12/11/23 13:51) Unknown Bactrum Allergy (Severe, Uncoded 12/11/23 13:51) Rash Seasonal Allergy (Severe, Uncoded 12/11/23 13:51) Rash Tobacco use date assessed: 12/11/23 Fall risk assessment: No Falls in past year Last assessed Fall Risk: 12/11/23 Dental Screening Dental Screen Date: 12/11/23 Did you have a dental visit in the last 12 months?: Yes Did you have a dental problem in the last 6 months where you did not have access to dental care?: No Was dental information given to patient?: Patient has dentist HPI HPI Comments History of Present Illness Details The patient is a 68-year-old female with a past medical history of allergies, chronic sinusitis, eczema, history of BCC, osteoporosis, TMJ presenting to [facility] care. She was previously followed at Dr. Hailey Kent Chronic sinusitis/allergic rhinitis: Sinuses fairly baseline. Denies shortness of breath. 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 NAD EYES: EOMI. Anicteric. HENT: Moist mucous membranes. No scleral icterus. No cervical lymphadenopathy. LUNGS: Clear to auscultation bilaterally. CARDIOVASCULAR: Regular rate and rhythm. No murmur. No JVD. ABDOMEN: Soft, non-tender +bs EXTREMITIES: No edema. Non-tender. SKIN: No rashes or lesions. Warm. NEUROLOGIC: No focal neurological deficits. CN II-XII grossly intact PSYCHIATRIC: Cooperative. Appropriate mood and affect [facility] Medical History Eczema Sinusitis Asthma Bronchitis, mucopurulent recurrent Allergic urticaria Reactive airway disease Murmur Tachycardia Post-COVID syndrome Bronchitis COVID-19 Surgical History History of appendectomy Family History Mother Diabetes Lymphoma Father Lung cancer Alzheimer disease Maternal Grandmother Congestive heart failure Maternal Grandfather Diabetes Social History Household Members: None Housing: House Alcohol intake: never Patient Tobacco Use Status: Former Tobacco user Tobacco use type: Cigarette Years Smoked: 20+ years e-Cigarette/Vaping Use: Never Used Current occupational status: employed 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 1. Little interest or pleasure in doing things: not at all 2. Feeling down, depressed, or hopeless: not at all 3. Trouble falling or staying asleep, or sleeping too much: not at all 4. Feeling tired or having little energy: not at all 5. Poor appetite or overeating: not at all 6. Feeling bad about yourself - or that you are a failure or have let yourself or your family down: not at all 7. Trouble concentrating on things, such as reading the newspaper or watching television: not at all 8. Moving or speaking so slowly that other people could have noticed. Or the opposite - being so fidgety or restless that you have been moving around a lot more than usual: not at all 9. Thoughts that you would be better off or of hurting yourself in some way: not at all Total score: 0 Depression Screening Interpretation: Negative (neg) Depression Screening Done: Yes Source: Developed by Drs. Jona Reyes, Lyssa Cummings, Mert Solomon and colleagues, with an educational paris from [employer]. Thrive Questionnaire Date Thrive assessed: 12/11/23 I am a: Patient What is your living situation today?: I have a steady place to live Within the past 12 months, did the food you bought not last and you didn't have the money to get more?: Never true Within the past 12 months, did you worry whether your food would run out before you got money to buy more?: Never true Do you have trouble paying for medicines?: No Do you have trouble getting transportation to medical appointments?: No Do you have trouble paying your heating and electricity bill?: No Do you have trouble taking care of your child, family member or friend?: No Do you have trouble with day-to-day activities such as bathing, preparing meals, shopping, managing finances, etc.?: No Are you currently unemployed and looking for a job?: No Are you interested in more education?: No THRIVE Score: 0 AUDIT C Alcohol Use Questionnaire (AUDIT-C) 1. How often do you have a drink containing alcohol?: Never 3. How often do you have six or more drinks on one occasion?: Never Total Score: 0 DORYS-7 AMB Questionnaire DORYS-7 Date DORYS - 7 assessed: 12/11/23 Feeling nervous, anxious, or on edge: 0 = Not at all Not being able to stop or control worryin = Not at all Worrying too much about different things: 0 = Not at all Trouble relaxin = Not at all Being so restless that it is hard to sit still: 0 = Not at all Becoming easily annoyed or irritable: 0 = Not at all Feeling afraid as if something awful might happen: 0 = Not at all Total DORYS-7 score (0-4 normal; 5-9 mild; 10-14 moderate; 15-21 severe): 0 Source: Developed by Drs. Jona Reyes, Lyssa Cummings, Mert Solomon and colleagues, with an educational paris from [employer]. DORYS-7 Assessment Billing DORYS-7 Assessment Tool: DORYS-7 Assessment 84338 Physical exam (Primary Care) Vital Signs: Last Vital Signs Pulse 85 12/11/23 13:46 BP 122/64 12/11/23 13:46 Pulse Ox 98 12/11/23 13:46 Oxygen Delivery Method Room Air 12/11/23 13:46 BMI result Body Mass Index 19.8 Tobacco/Smoking Status: Tobacco use Status Tobacco use date assessed 12/11/23 12/11/23 13:58 Patient Tobacco Use Status Former Tobacco user 08/12/24 13:58 Tobacco use type Cigarette 12/11/23 13:58 e-Cigarette/Vaping Use Never Used 12/11/23 13:58 PHQ-9: PHQ-9 Score PHQ-9: Total score 0 12/24/23 10:28 Depression Screening Interpretation: Negative (neg) Thrive Assessment: Date of Thrive Assessment Date Thrive assessed 12/11/23 12/11/23 13:58 Assessment and Plan Assessment & Plan (1) Encounter to establish care: Code(s): Z76.89 - Persons encountering health services in other specified circumstances Plan: 68 yo to establish care. past medical, surgical, social and family history reviewed. (2) Bronchitis, mucopurulent recurrent: Code(s): J41.1 - Mucopurulent chronic bronchitis Plan: recent covid exposure. patient swabbed today. will follow up with results Orders: Orders SARS-CoV2/FLU/RSV 12/11/23 J00 - Acute nasopharyngitis [common cold] Medications: New cholecalciferol (vitamin D3) (Vitamin D3) 25 mcg PO DAILY 90 caps 3RF Coding Level of Care Code New Pt Level 4 (29401) Complex EM visit Add On G2211 Diagnoses Encounter to establish care Z76.89 Bronchitis, mucopurulent recurrent J41.1 Additional Codes DORYS-7 Assessment Billing - DORYS-7 Assessment Tool: DORYS-7 Assessment 58203 ([id number])
== END 2023-12-11 14:27 | disposition home or self-care (01) ==
PROVIDERS: PCP Internal Medicine; Visit Provider Internal Medicine
DX: J41.1 Mucopurulent chronic bronchitis (principal); Z76.89 Persons encountering health services in other specified circumstances
CPT/HCPCS: 99204; G2211

== ENCOUNTER 2023-12-11 14:26 | Outpatient (REF) | payer MEDICARE, OTHER, SELFPAY ==
[2023-12-11 18:47] LABS: Influenza A PCR NEGATIVE (Negative); Influenza B PCR NEGATIVE (Negative); Resp Syncy Virus RNA Qual PCR NEGATIVE (Negative); SARS COV2 PCR INHOUSE POSITIVE (Negative)
== END 2023-12-11 14:27 | disposition home or self-care (01) ==
LOC: HO.LAB 14:26
PROVIDERS: Visit Provider Internal Medicine
DX: J06.9 Acute upper respiratory infection, unspecified (principal)
CPT/HCPCS: 0241U

== ENCOUNTER 2023-12-25 15:19 | Outpatient (AMB) | payer MEDICARE, OTHER, SELFPAY ==
--- NOTE | 2023-12-25 15:27 | MHC.PC.OV ---
Vital Signs 12/25/23 15:29 Height 5 ft 2 in Weight 108 lb BMI 19.8 BP 110/68 Blood Pressure Location Rt brachial Position Sitting Respiration 14 Pulse 81 Pulse Source Pulse Oximeter Temp 97.8 F Temp Source Oral Pulse Oximetry (%) 96 Oxygen Delivery Method Room Air Intake Visit Reasons: Sinus infection Intake Note: Sinus pressure, nasal discharge. Had covid two weeks ago. Has 2 days left of antibiotic, but didn't take as directed. 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 Patient was diagnosed with COVID-19 couple of weeks ago. She declined prescription for Paxlovid. She feels like she has a sinus infection. She was prescribed doxycycline, but she missed the last 7 doses of it. She stopped taking it because she was going [place] be at the beach and she knows it can cause sun sensitivity, and it was causing gas. She has sinus pressure that feels like a mask on her face. She feels congested, but she can not produce nasal discharge. She is fatigued. No fevers or chills. She tried Sudafed and [id number]-[id number] sinus medication. There is no improvement. She is prone to sinus infections, and she requests prednisone with antibiotics. This usually works for her. She also has genital herpes outbreak and is out of antiviral medication. She has taken valacyclovir and acyclovir in the past. ROS: Constitutional: No fevers or chills Eyes: No vision changes, blurry vision, double vision, eye pain, eye redness, eye discharge. ENT: No hearing loss, ear pain, sore throat, see HPI Respiratory: No shortness of breath or cough Cardiovascular: No chest pain Neurologic: No dizziness or syncope Physical exam: Constitutional: Alert, in no distress. Eyes: Pupils are equal, round and reactive to light. Extraocular muscles intact. Ear, Nose and Throat: Clear fluid bubbles in the left tympanic membrane. Right TM normal. TMs are not bulging or erythematous. Nasal mucosa is boggy and erythematous. Left maxillary and frontal sinuses tender. No nasal discharge. No oral lesions. Neck: Supple, Full range of motion. No lymphadenopathy. Respiratory: Clear to auscultation. Cardiovascular: S1 S2 regular. No murmurs. Extremities: Warm and well perfused. No clubbing, cyanosis or edema. Psychiatric: Normal mood and affect COUNTS INCLUDE [facility] BEDS AT THE [facility] Medical History (Updated 12/25/23 @ 16:14 by MINNIE Domínguez) Genital herpes Eczema Sinusitis Asthma Bronchitis, mucopurulent recurrent Allergic urticaria Reactive airway disease Murmur Tachycardia Post-COVID syndrome Bronchitis COVID-19 Surgical History History of appendectomy Family History Mother Diabetes Lymphoma Father Lung cancer Alzheimer disease Maternal Grandmother Congestive heart failure Maternal Grandfather Diabetes Social History Household Members: None Housing: House Alcohol intake: never Patient Tobacco Use Status: Former Tobacco user Tobacco use type: Cigarette Years Smoked: 20+ years e-Cigarette/Vaping Use: Never Used Current occupational status: employed 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 Jona Reyes, Lyssa Cummings, Mert Solomon and colleagues, with an educational paris from [employer]. Physical exam (Primary Care) Vital Signs: Last Vital Signs Temp 97.8 F 12/25/23 15:29 Pulse 81 12/25/23 15:29 Resp 14 12/25/23 15:29 BP 110/68 12/25/23 15:29 Pulse Ox 96 12/25/23 15:29 Oxygen Delivery Method Room Air 12/25/23 15:29 BMI result Body Mass Index 19.8 Tobacco/Smoking Status: Tobacco use Status Tobacco use date assessed 12/11/23 12/25/23 15:31 Patient Tobacco Use Status Former Tobacco user 12/25/23 15:31 Tobacco use type Cigarette 12/25/23 15:31 e-Cigarette/Vaping Use Never Used 12/25/23 15:31 Thrive Assessment: Date of Thrive Assessment Date Thrive assessed 12/11/23 12/25/23 15:31 Assessment and Plan Assessment & Plan (1) Acute sinusitis: Code(s): J01.90 - Acute sinusitis, unspecified Qualifiers: Sinusitis location: other Recurrence: non-recurrent Qualified Code(s): J01.80 - Other acute sinusitis Plan: Treat with Augmentin and prednisone. Side effects including possibility of C diff colitis reviewed with the patient. Administration of medications reviewed. Recommended yogurt and probiotics. Take full course of antibiotics even if symptoms maryanne. Continue sinus rinses, rest, fluids. Follow up if symptoms worsen or do not resolve. (2) Genital herpes: Code(s): A60.00 - Herpesviral infection of urogenital system, unspecified Qualifiers: Herpes simplex infection site: unspecified Qualified Code(s): A60.00 - Herpesviral infection of urogenital system, unspecified Plan: Sent valacyclovir for outbreak. Side effects and administration reviewed. Medications: New prednisone days 11-21 of therapy 40 mg (2 x 20 mg) PO DAILY 5 days 10 tabs 0RF amoxicillin-pot clavulanate 875-125 mg 1 tab PO BID 20 tabs 0RF valacyclovir 500 mg PO BID 3 days 6 tabs 5RF Discontinued doxycycline hyclate Discontinued Reason: Doctor's Order 100 mg PO BID 10 days 20 tabs 0RF Coding Level of Care Code Est Pt Level 4 (76136) Complex EM visit Add On G2211 Diagnoses Acute non-recurrent sinusitis of other sinus J01.80 Sinusitis location: other Recurrence: non-recurrent Genital herpes simplex, unspecified site A60.00 Herpes simplex infection site: unspecified
[2023-12-25 15:29] VITALS: BP 110/68; PULSE 81; RESP 14; TEMP 36.6; O2SAT 96; BMI 19.8
== END 2023-12-25 16:16 | disposition home or self-care (01) ==
PROVIDERS: PCP Internal Medicine; Visit Provider Physician Assistant Medical
DX: J01.80 Other acute sinusitis (principal); A60.00 Herpesviral infection of urogenital system, unspecified
CPT/HCPCS: 99214; G2211

== ENCOUNTER 2024-02-14 13:37 | Outpatient (AMB) | payer MEDICARE, OTHER, SELFPAY ==
--- NOTE | 2024-02-14 13:44 | A.OFFPC_ITS ---
Vital Signs 02/14/24 13:46 Height 5 ft 2 in Weight 112 lb BMI 20.5 BP 112/68 Blood Pressure Location Rt brachial Position Sitting Respiration 14 Pulse 81 Pulse Source Pulse Oximeter Temp 98.2 F Temp Source Oral Pulse Oximetry (%) 99 Oxygen Delivery Method Room Air Intake Visit Reasons: est/left ear pain/swollen face from sinuses Intake Note: Left ear pain and swolleen sinus. Symptoms started 4 days ago. no covid/flu/rsv tests. Allergies sulfamethoxazole [From Bactrim] Allergy (Unknown, Verified 02/14/24 13:45) Unknown trimethoprim [From Bactrim] Allergy (Unknown, Verified 02/14/24 13:45) Unknown Bactrum Allergy (Severe, Uncoded 02/14/24 13:45) Rash Seasonal Allergy (Severe, Uncoded 02/14/24 13:45) Rash Medication List - Last Reconciled 02/14/24 by Savi Florez PA-C albuterol sulfate 2.5 mg (3 mL) inhalation Q6H PRN 30 days albuterol sulfate 90 mcg/actuation 2 puffs PO Q4-6H biotin 10 mg PO DAILY budesonide 0.5 mg (2 mL) inhalation DAILY 30 days cholecalciferol (vitamin D3) (Vitamin D3) 25 mcg PO DAILY dupilumab (Dupixent) 300 mg (2 mL) subcut Q2W epinephrine (EpiPen 2-Henry) 0.3 mg (0.3 mL) IM Q10M PRN 30 days guaifenesin ER (Mucinex) 600 mg PO Q12H PRN multivitamin 1 tab PO DAILY nebulizers As directed oxymetazoline 0.05% (Afrin (oxymetazoline)) 2 sprays intranasal Q12H PRN 3 days prednisone 10 mg PO DIRECTED pseudoephedrine HCl ER 120 mg PO Q12H 30 days Symbicort 160-4.5 mcg/actuation (budesonide-formoterol) 2 puffs inhalation BID NS triamcinolone acetonide 0.1% 1 appl topical BID-TID valacyclovir 500 mg PO BID 3 days Tobacco use date assessed: 12/11/23 Dental Screening Dental Screen Date: 12/11/23 HPI est/left ear pain/swollen face from sinuses HPI Details Patient is a 68-year-old female with a significant past medical history of recurrent sinusitis, reactive airway disease presenting today with complaints of sinus pain and pressure, ear pain and postnasal drip for the last week. She states it feels like she has worsened despite using Dupixent, nasal steroids and Mucinex. She states that she is very prone to bacterial infections and feels like she needs a prescription for doxycycline and a prednisone taper. She states that she has seen Allergy and immunology and ENT but is still getting these exacerbations of her sinusitis. She is hopeful that Dupixent we will be more effective for her. Her asthma does not feel exacerbated. [facility] Medical History (Updated 02/14/24 @ 14:10 by Savi Florez PA-C) Genital herpes Eczema Sinusitis Asthma Bronchitis, mucopurulent recurrent Allergic urticaria Reactive airway disease Murmur Tachycardia Post-COVID syndrome Bronchitis COVID-19 Surgical History History of appendectomy Family History Mother Diabetes Lymphoma Father Lung cancer Alzheimer disease Maternal Grandmother Congestive heart failure Maternal Grandfather Diabetes Social History Household Members: None Housing: House Alcohol intake: never Patient Tobacco Use Status: Former Tobacco user Tobacco use type: Cigarette Years Smoked: 20+ years e-Cigarette/Vaping Use: Never Used Current occupational status: employed 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 1. Little interest or pleasure in doing things: not at all 2. Feeling down, depressed, or hopeless: not at all 3. Trouble falling or staying asleep, or sleeping too much: not at all 4. Feeling tired or having little energy: not at all 5. Poor appetite or overeating: not at all 6. Feeling bad about yourself - or that you are a failure or have let yourself or your family down: not at all 7. Trouble concentrating on things, such as reading the newspaper or watching television: not at all 8. Moving or speaking so slowly that other people could have noticed. Or the opposite - being so fidgety or restless that you have been moving around a lot more than usual: not at all 9. Thoughts that you would be better off or of hurting yourself in some way: not at all Total score: 0 Source: Developed by Drs. Jona Reyes, Lyssa Cummings, Mert Solomon and colleagues, with an educational paris from [employer]. Thrive Questionnaire Date Thrive assessed: 12/11/23 I am a: Patient What is your living situation today?: I have a steady place to live Within the past 12 months, did the food you bought not last and you didn't have the money to get more?: Never true Within the past 12 months, did you worry whether your food would run out before you got money to buy more?: Never true Do you have trouble paying for medicines?: No Do you have trouble getting transportation to medical appointments?: No Do you have trouble paying your heating and electricity bill?: No Do you have trouble taking care of your child, family member or friend?: No Do you have trouble with day-to-day activities such as bathing, preparing meals, shopping, managing finances, etc.?: No Are you currently unemployed and looking for a job?: No Are you interested in more education?: No Please select the resources that you would like help with: None Currently or been in a relationship where the following occur: No concerns reported THRIVE Score: 0 AUDIT C Alcohol Use Questionnaire (AUDIT-C) 1. How often do you have a drink containing alcohol?: Never Total Score: 0 DORYS-7 AMB Questionnaire DORYS-7 Date DORYS - 7 assessed: 12/11/23 Feeling nervous, anxious, or on edge: 0 = Not at all Not being able to stop or control worryin = Not at all Worrying too much about different things: 0 = Not at all Trouble relaxin = Not at all Being so restless that it is hard to sit still: 0 = Not at all Becoming easily annoyed or irritable: 0 = Not at all Feeling afraid as if something awful might happen: 0 = Not at all Total DORYS-7 score (0-4 normal; 5-9 mild; 10-14 moderate; 15-21 severe): 0 Source: Developed by Drs. Jona Reyes, Lyssa Cummings, Mert Solomon and colleagues, with an educational paris from [employer]. Physical exam (Primary Care) Vital Signs: Last Vital Signs Temp 98.2 F 02/14/24 13:46 Pulse 81 02/14/24 13:46 Resp 14 02/14/24 13:46 BP 112/68 02/14/24 13:46 Pulse Ox 99 02/14/24 13:46 Oxygen Delivery Method Room Air 02/14/24 13:46 BMI result Body Mass Index 20.5 Tobacco/Smoking Status: Tobacco use Status Tobacco use date assessed 12/11/23 02/14/24 13:49 Patient Tobacco Use Status Former Tobacco user 02/14/24 13:49 Tobacco use type Cigarette 02/14/24 13:49 e-Cigarette/Vaping Use Never Used 02/14/24 13:49 PHQ-9: PHQ-9 Score PHQ-9: Total score 0 02/14/24 13:49 Thrive Assessment: Date of Thrive Assessment Date Thrive assessed 12/11/23 02/14/24 13:49 Currently or been in a relationship where the following occur: No concerns reported Const Orientation/consciousness: patient oriented x3 HENMT Other: TMs dome-shaped with small air-fluid levels bilaterally. Nasal mucosa erythematous and edematous. Purulent drainage noted. Maxillary sinus tenderness present. Ears: hearing grossly normal bilaterally Neck Thyroid: Thyroid normal Lymphatic: no lymphadenopathy noted Resp Auscultation: clear to auscultation bilaterally Cardio Rate: regular rate Rhythm: regular rhythm Heart sounds: S1 normal heart sound present and S2 normal heart sound present GI Inspection: Yes normal to inspection Palpation (GI): Soft to palpation and Other GI palpation findings present (nontender, no cva tenderness) Auscultation: normoactive bowel sounds Rectal Exam - Female: deferred Skin General skin exam: no rashes or lesions noted Neuro General: patient oriented x3, gait normal and no focal motor deficits Coding Level of Care Code Est Pt Level 3 (01975) Diagnoses Bacterial sinusitis J32.9; B96.89 Assessment & Plan Assessment & Plan (1) Bacterial sinusitis: Code(s): J32.9 - Chronic sinusitis, unspecified; B96.89 - Other specified bacterial agents as the cause of diseases classified elsewhere Category: Medical Plan: We will start her on doxycycline. Discussed risks and benefits and adverse effects at length of this medication and the fact that she has been on numerous antibiotics recently. We discussed the risk of C diff colitis along with antibiotic resistance. We also discussed the long-term complications associated with regular steroid use. Advised patient to continue current regimen and arranged short term follow up with PCP. Medications: New doxycycline hyclate 100 mg PO BID 20 tabs 0RF Refilled prednisone see taper instructions-Take 2 tab oral once daily for 5 days then 1 tab oral once daily for 5 days then stop 10 mg PO DIRECTED 15 tabs 0RF
[2024-02-14 13:46] VITALS: BP 112/68; PULSE 81; RESP 14; TEMP 36.8; O2SAT 99; BMI 20.5
== END 2024-02-14 14:07 | disposition home or self-care (01) ==
PROVIDERS: PCP Internal Medicine; Visit Provider Physician Assistant
DX: J32.9 Chronic sinusitis, unspecified (principal); B96.89 Other specified bacterial agents as the cause of diseases classified elsewhere

== ENCOUNTER → 2024-02-14 13:37 | Outpatient (BNVA) | payer MEDICARE, OTHER, SELFPAY | PROVIDERS: PCP Internal Medicine; Visit Provider Physician Assistant | DX: J32.9 Chronic sinusitis, unspecified (principal); B96.89 Other specified bacterial agents as the cause of diseases classified elsewhere | CPT/HCPCS: 96127; 99212 ==

== ENCOUNTER 2024-02-19 11:45 | Outpatient (REF) | payer MEDICARE, OTHER, SELFPAY ==
[2024-02-19 14:34] LABS: Appearance Urine Clear; Color Urine Yellow; Glucose Urine UA Negative (Negative); Leukocyte Esterase Urine Trace (Negative); Nitrite Urine Negative (Negative); PH 5.5 (5.0-9.0); Specific Gravity - Urine 1.015 (1.005-1.025); UMIC TRIGGER UACC YES; Urine Blood Negative (Negative); Urine Ketones Negative (Negative); Urine Protein Negative (Neg-Trace)
[2024-02-19 14:40] LABS: Bacteria Urine None Seen (None Seen); Hyaline Casts Urine 0-2 /LPF (0-2); RBC Urine 0-2 /HPF (0-2); Squamous Epithelial Cell Urine 0-2 /HPF (0-2); WBC Urine 0-5 /HPF (0-5)
== END 2024-02-19 11:46 | disposition home or self-care (01) ==
LOC: HO.WFDLDS 11:45
PROVIDERS: Visit Provider Internal Medicine
DX: R30.0 Dysuria (principal)
CPT/HCPCS: 81001

== ENCOUNTER 2024-02-27 10:08 | Outpatient (AMB) | payer MEDICARE, OTHER, SELFPAY ==
--- NOTE | 2024-02-27 10:47 | A.OFFPC_ITS ---
Intake Visit Reasons: results for uti Allergies sulfamethoxazole [From Bactrim] Allergy (Unknown, Verified 02/14/24 13:45) Unknown trimethoprim [From Bactrim] Allergy (Unknown, Verified 02/14/24 13:45) Unknown Bactrum Allergy (Severe, Uncoded 02/14/24 13:45) Rash Seasonal Allergy (Severe, Uncoded 02/14/24 13:45) Rash Tobacco use date assessed: 12/11/23 Dental Screening Dental Screen Date: 12/11/23 HPI HPI Comments History of Present Illness Details The patient is a 68-year-old female with a past medical history of allergies, chronic sinusitis, eczema, history of BCC, osteoporosis, TMJ presenting for follow up She recently had some dysuria. Urinalysis was bland. Her symptoms have mostly dissipated. She was on doxycycline which she has almost completed. She had some relief with the medication however mild. Chronic sinusitis/allergic rhinitis: History of COVID 11/2023 [facility]- Ophtho-Dr Jaquan ARENAS senior mechanical engineer [facility]- Pulm-Dr Usman HEALY see HPI PHYSICAL EXAM: Telehealth [facility] Medical History (Updated 02/19/24 @ 10:01 by Alka Smith MD) Genital herpes Eczema Sinusitis Asthma Bronchitis, mucopurulent recurrent Allergic urticaria Reactive airway disease Murmur Tachycardia Post-COVID syndrome Bronchitis COVID-19 Surgical History History of appendectomy Family History Mother Diabetes Lymphoma Father Lung cancer Alzheimer disease Maternal Grandmother Congestive heart failure Maternal Grandfather Diabetes Social History Household Members: None Housing: House Alcohol intake: never Patient Tobacco Use Status: Former Tobacco user Tobacco use type: Cigarette Years Smoked: 20+ years e-Cigarette/Vaping Use: Never Used Current occupational status: employed 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 Jona Reyes, Lyssa Cummings, Mert Solomon and colleagues, with an educational paris from [email or web address]. Physical exam (Primary Care) Tobacco/Smoking Status: Tobacco use Status Tobacco use date assessed 12/11/23 02/27/24 10:48 Patient Tobacco Use Status Former Tobacco user 02/27/24 10:48 Tobacco use type Cigarette 02/27/24 10:48 e-Cigarette/Vaping Use Never Used 02/27/24 10:48 Thrive Assessment: Date of Thrive Assessment Date Thrive assessed 12/11/23 02/27/24 10:48 Telehealth Telehealth Telehealth Platform: [employer] Location of provider rendering services: practice address Location of patient: address on file Patient Identification confirmed using: Name, : Yes Telehealth method: voice only Patient verbally consented to treatment: Yes Patient verbally consented to billing insurance company: Yes Patient informed of any privacy concerns related to visit: Yes Minutes spent on Phone/Video with Pt.: 22 Coding Level of Care Code Est Pt Level 3 (52885) Diagnoses Dysuria R30.0 Bacterial sinusitis J32.9; B96.89 Assessment & Plan Assessment & Plan (1) Dysuria: Code(s): R30.0 - Dysuria Category: Medical Plan: Given continued sinus symptoms will send levofloxacin. Black box warning discus sed (2) Bacterial sinusitis: Code(s): J32.9 - Chronic sinusitis, unspecified; B96.89 - Other specified bacterial agents as the cause of diseases classified elsewhere Category: Medical Plan: see above Orders: Orders Urine Culture 02/27/24 R30.0 - Dysuria Medications: New levofloxacin 750 mg PO DAILY 5 tabs 0RF levofloxacin fill 7 days not 5 days 750 mg PO DAILY 7 tabs 0RF Discontinued doxycycline hyclate Discontinued Reason: Doctor's Order 100 mg PO BID 20 tabs 0RF
== END 2024-02-27 13:18 | disposition home or self-care (01) ==
LOC: HO.HMCFM 10:08
PROVIDERS: PCP Internal Medicine; Visit Provider Internal Medicine
DX: R30.0 Dysuria (principal); J32.9 Chronic sinusitis, unspecified; B96.89 Other specified bacterial agents as the cause of diseases classified elsewhere

== ENCOUNTER → 2024-02-27 10:08 | Outpatient (BNVA) | payer MEDICARE, OTHER, SELFPAY | PROVIDERS: PCP Internal Medicine; Visit Provider Internal Medicine | DX: R30.0 Dysuria (principal); J32.9 Chronic sinusitis, unspecified; B96.89 Other specified bacterial agents as the cause of diseases classified elsewhere | CPT/HCPCS: 99212 ==

== ENCOUNTER 2024-05-24 11:12 | Outpatient (REF) | payer MEDICARE, OTHER, SELFPAY ==
--- OUTSIDE RECORDS SUMMARY | 2024-05-24 13:23 | XMS_ITS | Clinical Summary ---
Author Organization [facility] Address [address] [place] [address] Phone Care Team Providers Care Canteen Attendant Name Role Phone Physician, No Pcp Primary Care Provider Unavaila ble Allergies Active Allergy Reactions Criticality Noted Date Comments Pollen Extracts Itching 10/10/2022 Seasonal Allergies Sulfamethoxazole-Trimethoprim Rash 2022 Medications Medication Sig Dispensed Refills Start Date End Date Status clotrimazole-betameth asone (LOTRISONE) 1-0.05 % cream Apply topically to affected area twice daily for no more than 10 days 07/27/2023 Active amoxicillin-clavulana te (AUGMENTIN) 875-125 mg per tablet Take 1 tablet by mouth 2 (two) times a day. 12/25/2023 Active Vitamin D3 25 mcg (1,000 unit) capsule Take 1 capsule (1,000 Units total) by mouth 1 (one) time each day. 04/04/2024 Active doxycycline (VIBRAMYCIN) 100 mg capsule Take 1 capsule (100 mg total) by mouth 2 (two) times a day. for 10 days 08/23/2023 Active doxycycline hyclate (VIBRA-TABS) 100 mg tablet TAKE 1 TABLET ORALLY 2 TIMES DAILY 02/14/2024 Active Dupixent Pen 300 mg/2 mL pen 04/16/2024 Active Dupixent Syringe 300 mg/2 mL syringe 09/13/2023 Active levoFLOXacin (LEVAQUIN) 750 mg tablet Take 1 tablet (750 mg total) by mouth 1 (one) time each day. for 7 days 02/27/2024 Active metroNIDAZOLE (FLAGYL) 500 mg tablet Take 1 tablet (500 mg total) by mouth 2 (two) times a day. for 7 days 07/31/2023 Active nitrofurantoin (MACRODANTIN) 100 mg capsule TAKE 1 TABLET BY MOUTH 2 TIMES A DAY, TAKE WITH MEAL/FOOD 02/19/2024 Active predniSONE (DELTASONE) 10 mg tablet TAKE 2 TAB ORAL ONCE DAILY FOR 5 DAYS THEN 1 TAB ORAL ONCE DAILY FOR 5 DAYS THEN STOP DIRECTED 02/14/2024 Active predniSONE (DELTASONE) 20 mg tablet TAKE 2 TABLETS BY MOUTH ONCE DAILY FOR 5 DAYS. DAYS 11-21 OF THERAPY 12/25/2023 Active predniSONE (DELTASONE) 50 mg tablet 09/13/2023 Active valACYclovir (VALTREX) 500 mg tablet Take 1 tablet (500 mg total) by mouth 2 (two) times a day. for 3 days 04/09/2024 Active acyclovir (ZOVIRAX) 400 mg tablet Take 1 tablet (400 mg total) by mouth. for 10 days 12/25/2023 Active budesonide (PULMICORT) 0.5 mg/2 mL nebulizer solution INHALE 1 VIAL (2 ML) VIA NEBULIZER MACHINE EVERY DAY 06/26/2023 Active doxycycline (ADOXA) 100 mg tablet Take 1 tablet (100 mg total) by mouth 2 (two) times a day. 05/07/2024 Active Active Problems Problem Noted Date Diagnosed Date Herpes genitalis in women 04/11/2023 Overview (05/08/2024): Last Assessment & Plan: Counseled pt re: findings c/w HSV. Will treat with Valtrex. Microscopic hematuria 04/11/2023 Overview (05/08/2024): Last Assessment & Plan: Will send culture and treat prn. Encounters Date Type Department Care Team Description 05/21/2024 3:45 PM EST Office Visit Obstetrics & Gynecology - [address] [id number] Trinh Garcia CNM Screen for STD (sexually transmitted disease) (Primary Dx); History of herpes genitalis 05/03/2024 Telephone Obstetrics and Gynecology - [address] [address] Ambrose Kelly CNM Request For Order(s) from Last 3 Months Surgical History Surgery Date Site/Laterality Comments APPENDECTOMY PROCEDURE: [place] APPENDECTOMY WISDOM TOOTH EXTRACTION N/A PROCEDURE: HISTORICAL WISDOM TEETH EXTRACTION OTHER SURGICAL HISTORY PROCEDURE: HISTORY OTHER; COMMENT: hymenectomy Medical History Medical History Date Comments Herpes genitalis in women 04/11/2023 DX:Her pes genitalis in women Family History Medical History Relation Name Comments Lung cancer Father Lymphoma Mother Breast cancer Neg Hx Cancer of Small Bowel Neg Hx Colon cancer Neg Hx Kidney cancer Neg Hx Ovarian cancer Neg Hx Pancreatic cancer Neg Hx Uterine cancer Neg Hx Relation Name Status Comments Father Mother Social History Tobacco Use Types Packs/Day Years Used Date Smoking Tobacco: Former Smokeless Tobacco: Never Alcohol Use Standard Drinks/Week Comments Not Currently 0 (1 standard drink = 0.6 oz pur e alcohol) Sex and Gender Information Value Date Recorded Sex Assigned at Not on file Gender Identity Not on file Sexual Orientation Not on file Job Start Date Occupation Industry Not on file Not on file Not on file Obstetrics History Para Term AB IAB SAB Ectopic Multiple Livin g Live Births 3 2 1 Date Outcome GA Total Labor Labor//3rd Weight Sex Type Anes PTL Francisca A1 A5 Name Clin Para Para AB Last Filed Vital Signs Vital Sign Reading Time Taken Comments Blood Pressure 131/82 05/21/2024 3:46 PM EST Pulse 80 05/21/2024 3:46 PM EST Temperature - - Respiratory Rate - - Oxygen Saturation - - Inhaled Oxygen Concentration - - Weight 50.8 kg (112 lb) 05/21/2024 3:46 PM EST Height 157.5 cm (5' 2 ) 05/21/2024 3:46 PM EST Body Mass Index 20.49 05/21/2024 3:46 PM EST Plan of Treatment Health Maintenance Due Date Last Done Comments Breast Cancer Screening 1955 Zoster Vaccines (1 of 2) 2004 Pneumococcal Vaccine: 65+ Years (1 of 1 - PCV) 2019 Cholesterol Screening (Lipid Panel) 05/25/2023 Colorectal Cancer Screening: Colonoscopy 05/25/2023 Depression Screening 05/25/2023 Falls Risk Assessment 05/25/2023 Medicare Annual Wellness Visit 05/25/2023 Osteoporosis Screening (Bone Density Screening) 05/25/2023 Social Influencers of Health Screening 05/25/2023 COVID-19 Vaccine (3 - 2023-2 5 season) 2023 06/03/2021, 05/06/2021 Influenza Vaccine (#1) 2023 DTaP,Tdap,and Td Vaccines (4 - Td or Tdap) 07/22/2027 07/21/2017, 07/10/2007, 01/13/2000 RSV Immunization Patients 60 + Years Old (1 - 1-dose 75+ series) 2029 Hepatitis C Screening Completed 05/05/2023 HIB Vaccines Aged Out No longer eligi ble based on patient's age to complete this topic HPV Vaccines Aged Out No longer eligi ble based on patient's age to complete this topic Hepatitis A Vaccines Aged Out No long er eligible based on patient's age to complete this topic Hepatitis B Vaccines Aged Out No long er eligible based on patient's age to complete this topic IPV Vaccines Aged Out No longer eligi ble based on patient's age to complete this topic MMR Vaccines Aged Out No longer eligi ble based on patient's age to complete this topic Meningococcal ACWY Vaccine Aged Out N o longer eligible based on patient's age to complete this topic RSV Immunization Patients Under 20 months Aged Out No longer eligible b ased on patient's age to complete this topic Varicella Vaccines Aged Out No longer eligible based on patient's age to complete this topic Procedures Procedure Name Priority Date/Time Associated Diagnosis Comments CHLAMYDIA TRACHOMATIS AND NEISSERIA GONORRHOEAE PCR Routine 05/21/2024 3:56 PM EST Screen for STD (sexually transmitted disease) History of herpes genitalis HEPATITIS C SCREENING Routine 05/05/2023 from Last 3 Months or Most Recently Relevant to Health Maintenance Results * Chlamydia trachomatis and Neisseria gonorrhoeae molecular study (05/21/2024 3:56 PM EST) Neisseria gonorrhoeae PCR Negative Negative LAB MOLECULAR DIAGNOSTICS METHOD 05/22/2024 10:16 AM EST [facility] Chlamydia trachomatis PCR Negative Negative LAB MOLECULAR DIAGNOSTICS METHOD 05/22/2024 10:16 AM EST [facility] Swab Cervix uteri structure / Unknown Non-blood Collection / Unknown 05/21/2024 3:56 PM EST 05/21/2024 4:16 PM EST Trinh Garcia CNM LAB MICROBIOLOGY - G ENERAL ORDERABLES [facility] [address] [place] [address], * Hepatitis C Screening (05/05/2023) Hepatitis C Screening abstracted Historical Provider MD JOHN Hermosillo from Last 3 Months or Most Recently Relevant to Health Maintenance Care Teams Canteen Attendant Relationship Specialty Start Date End Date Physician, No Pcp PCP - General 05/17/24
--- OUTSIDE RECORDS SUMMARY | 2024-05-24 13:24 | XMS_ITS | Data Portability ---
Author Organization [facility], [address] Address [address] [place] [address] Assessment No assessment recorded. Plan of Treatment Reminders Order Date Submit Date Provider Last Modified By Organization Details Last Modified Time Details Appointments None recorded. Lab SARS CoV 2 (COVID-19) Ag, QL, IA, upper respiratory specimen 2023 024 [email or web address] [email or web address], [address] [place], [address], 19:26:41 Referral None recorded. Procedures None recorded. Surgeries None recorded. Imaging None recorded. Medication Orders prednisone 20 mg tablet 2023 024 [facility] #[id number], [address] [place], [address], 19:26:42 Augmentin 875 mg-125 mg tablet 2023 024 [facility] #[id number], [address] [place], [address], 19:26:43 Patient TargetsNo targets recorded. Patient Instructions Encounter Date Encounter Id Patient Instructions Last Modified By Organization Details Last Modified Time 11/28/2023 [id number] Follow-up with your doctor if no improvement in 1 week. Seek Emergency Medical evaluation for any worsening symptoms. [email or web address] Not available 11/28/2023 19:26:37 Reason for Referral None Reported. Results Created Date Observation Date Name Description Value Unit Range Abnormal Flag Note LastModifiedBy Organization Detail LastModifiedTime 11/28/1911/28/2023 SARS CoV 2 (COVI D-19) Ag, QL, [place], upper respi rator y speci men Unknown Analyte negati ve Not Available [email or web address] [place], [address], 11/28/2023 19:01:45 Result Notes None recorded. Problems Name Problem SNOMED Code Status Onset Date Resolution Date Notes Provider Name and Address Organization Details Recorded Time Asthma 814526156 Active DIONY MINEO null, [place] - [facility] 4 19:00:05 Sinusitis 04927799 Active DIONY MINEO null, [place] - [facility] 19:00:15 Problem Notes None recorded. Medical Equipment None Reported. Allergies Allergen ID Allergen Name Allergen Category Reaction Reaction Severity Criticality Documentation Date Start Date Code Code System Note Provider Name and Address Organization Details Recorded Time 669350 Bactrim medicatio n Not available Not available Not available 11/28/2023 53788 9 RxNorm DIONY MINEO null, [place] - [facility] 18:58:00 Medications Name Sig Start Date Stop Date Status Note LastModified by Organization Details LastModified Time Augmentin 875 mg-125 mg tablet Take 1 tablet every 12 hours by oral route as directed for 10 days, for sinus infection . 2023 active Not Available Not Available Not Avai lable doxycycline hyclate 100 mg capsule TAKE 1 CAPSULE BY MOUTH TWICE A DAY FOR 10 DAYS 11/27 completed Not Available Not Available Not Available prednisone 20 mg tablet Take 2 tablets every day by oral route in the morning for 3 days, for respirato ry inflammat ion. 2023 active Not Available Not Available Not Avai lable metronidazo le 500 mg tablet TAKE 1 TABLET BY MOUTH TWICE A DAY FOR 7 DAYS 11/27 completed Not Available Not Available Not Available valacyclovi r 500 mg tablet TAKE 2 TABLETS BY MOUTH 2 TIMES DAILY. FOR 5 DAYS WITH AN OUTBREAK active Not Available Not Available No t Available doxycycline monohydrate 100 mg tablet TAKE 1 TABLET BY MOUTH TWICE A DAY .X14 DAYS 11/27 completed Not Available Not Available Not Available clotrimazol e-betametha sone 1 %-0.05 % topical cream APPLY TOPICALLY TO AFFECTED AREA TWICE DAILY FOR NO MORE THAN 10 DAYS active Not Available Not Available No t Available prednisone 50 mg tablet 11/27 completed Not Available Not Available Not Available budesonide 0.5 mg/2 mL suspension for nebulizatio n INHALE 1 VIAL (2 ML) VIA NEBULIZER MACHINE EVERY DAY active Not Available Not Available No t Available albuterol sulfate HFA 90 mcg/actuati on aerosol inhaler active Not Available Not Available Not Available cholecalcif sameer (vitamin D3) 25 mcg (1,000 unit) capsule TAKE 1 CAPSULE BY MOUTH EVERY DAY active Not Available Not Available No t Available nitrofurant oin monohydrate /macrocryst als 100 mg capsule TAKE 1 CAPSULE BY MOUTH TWICE A DAY FOR 7 DAYS 11/27 completed Not Available Not Available Not Available Sudafed active Not Available Not Avail able Not Available Mucinex active Not Available Not Avail able Not Available Dupixent 300 mg/2 mL subcutaneou s syringe active Not Available Not Available No t Available Dupixent 300 mg/2 mL subcutaneou s pen injector active Not Available Not Available Not Available Vitals Date Recorded Body height Provider Name an d Address Organization Details Last Updated DateTime 11/28/2023 157.48 cm DIONY MINEO PA - [facility] 0 11/28/2023 19:00:41 Date Recorded Body mass index (BMI) Body weight Provider Name and Address Organization Details Last Updated DateTime 11/28/2023 19 kg/m2 85830.61 g DIONY MINEO PA - [facility] 11/28/2023 19:00:45 Date Recorded Oxygen saturation Oxygen saturation in Arterial blood by Pulse oximetry Provider Name and Address Organization Details Last Updated DateTime 11/28/2023 98 % 98 % DIONY MINEO PA - [facility] 11/28/2023 19:01:31 Date Recorded Heart rate Provider Name an d Address Organization Details Last Updated DateTime 11/28/2023 88 /min DIONY MINEO PA - [facility] 0 11/28/2023 19:01:35 Date Recorded Respiratory rate Provider Name a nd Address Organization Details Last Updated DateTime 11/28/2023 18 /min DIONY MINEO PA - [facility] 0 11/28/2023 19:01:37 Date Recorded Body temperature Provider Name a nd Address Organization Details Last Updated DateTime 11/28/2023 98.2 [degF] DIONY RUTHERFORD PA - [facility] 11/28/2023 19:01:40 Date Recorded Systolic blood pressure Diastolic blood pressure Provider Name and Address Organization Details Last Updated DateTime 11/28/2023 118 mm[Hg] 75 mm[Hg] DIONY RUTHERFORD PA - [facility] 11/28/2023 19:01:29 Social History Question Answer Notes LastModified by Organizat ion Details LastModified Time Tobacco Smoking Status Never Smoker DIONY shay, [place] - [facility] 11/28/2023 19:00:29 What Is Your Level Of Alcohol Consumption? None Information not available 11/28/2023 Do You Use Any Illicit Or Recreational Drugs? No Information not available 11/28/2023 Sex: Unknown Functional Status None recorded. Mental Status None recorded. Family History Nothing Reported. Medical History No medical history recorded. Gynecological History Statement/Question Response LMP N/A Obstetrics History GPAL:G 0 P 0 0 0 0 Past Encounters Encounter ID Performer Location Encounter Start Date Encounter Closed Date Diagnosis/Indication Diagnosis SNOMED-CT Code Diagnosis ICD10 Code Diagnosis Note [id number] [facility] [address] [place] [address] 7 12/15/2019 15:30:24 12/15/2019 15:59:14 [id number] [facility] [address] [address] 07/05/2018 14:08:24 07/05/2018 15:02:09 [id number] [address] [address] [place] [id number] 7 07/16/2018 18:17:14 07/16/2018 19:10:17 [id number] [address] [address] [place] [id number] 7 02/09/2017 18:53:59 02/09/2017 19:35:47 [id number] [address] [place] [address] 7 05/18/2015 11:53:52 05/18/2015 12:28:11 [id number] [address] [place] [id number] 7 05/25/2020 18:50:55 05/25/2020 19:29:04 [id number] [address] [place] [id number] 7 11/13/2016 17:56:36 11/13/2016 18:27:40 [id number] [address] [place] [address]228[address] 7 05/21/2015 10:43:28 05/21/2015 11:47:29 [id number] [address] [place] [address] [id number] 7 05/19/2019 15:47:25 05/19/2019 16:02:47 [id number] [address] [place] [address] [id number] 7 08/02/2016 19:01:00 08/02/2016 19:56:35 [id number] [address] [id number] 11/15/2017 19:27:57 11/15/2017 19:39:43 [id number] ALLEN MILLS MD [address] [place] [address] [id number] 7 11/28/2023 18:46:44 11/28/2023 19:27:50 Dry cough 88612019 R05.9 CoughBlack Elderberry Syrup:1-2 tsp 2-3 times a day for 5 days as needed for coughing.S ambucol Black Elderberry Original Syrup (available at [employer] )Jannet Herbs Black Elderberry Syrup, 5.4-Ounce Bottle (available at [employer] or [email or web address]) Use a cool mist humidifier in the room that you sleep to add moisture to the air, which should soothe the airways and help loosen any mucus that may be present. Acute maxi llary sinusitis 83435134 J01.00 Health Concerns Section Related Observation LastModified by Organization Detai ls LastModified Time None Recorded Concern Status LastModified by Organization Details LastModified Time None Recorded Advance Directives Directive None Recorded Payers Encounter Date Sequence Insurance Name Policy Number Policy Shoemaker Covered Member ID Shoemaker Member ID Guarantor Name 05/19/2019 1 [place]ARE [place]: [facility] Michelle Carrillo [id number] Psychiatric 12/15/2019 1 [place]ARE [place]: [facility] Michelle Carrillo [id number] Psychiatric 12/15/2019 2 [facility]ITICAL ACCESS HOSPITALTY PLAN - UNICARE [id number] Juan Jose Carrillo [id number] Psychiatric 05/25/2020 1 [place] [facility] Michelle Carrillo [id number] Psychiatric 05/25/2020 2 [facility]ICAL ACCESS H[facility]PITALTY [facility] - UNICARE [id number] Juan Jose Carrillo [id number] Psychiatric 11/28/2023 1 [place] [facility] Michelle Carrillo [id number] Psychiatric 11/28/2023 2 [facility] [id number] Juan Jose Carrillo [id number] Psychiatric Notes Date Note Type Note Provider Name and Address Organization Details Recorded Time 11/28/2023 text/html 6 days of sinus pressure. Hx of sinus infections. Last one 3 months ago. Hx of Asthma. Uses her meds regularly and is not having Asthma symptoms now. ALLEN MILLS MD [address] [place], [address], [place] - [facility] 11/28/2023 19:27:26 OBGyn Episode No OBEpisode recorded.
--- OUTSIDE RECORDS SUMMARY | 2024-05-24 13:24 | XMS_ITS | Data Portability ---
Author Organization [facility], Main Office Address [address] [place] [address] Care Team Providers Care Correspondence Clerk Name Role Phone ALEXA HEIN OTHER Assessment No assessment recorded. Plan of Treatment Reminders Order Date Submit Date Provider Last Modified By Organization Details Last Modified Time Details Appointments None recorded. Lab lipid panel, serum 2015 016 abigby Not available 6 09:41:29 lipid panel, serum 2017 018 ALEXSANDRA Not available 8 20:49:[address] referral 2015 016 [facility], [address] [place] [address], [place], [address], 6 14:42:14 gastroente rologist referral - Needs colon cancer screening 2017 018 scastellan o4 Not available 8 11:42:59 Procedures colonoscop y screening (PROC) 2015 016 abigby Not available 6 09:16:32 colonoscop y screening (PROC) 2017 018 abigby Not available 8 16:07:47 Surgeries None recorded. Imaging bone density, hip, spine & forearm 2015 016 abigby Not available 6 13:32:36 routine mammograph y exam, screening 2015 016 abigby Not available 6 10:18:16 routine mammograph y exam, screening 2015 016 abigby Not available 6 10:18:16 MAMMO, screening, bilateral - Perform Diagnostic Mammogram and Breast Ultrasound if needed / Perform Ultrasound Guided Aspiration and/or Breast Biopsy if warranted 2017 018 scastellan o4 Not available 8 11:42:59 Medication Orders levofloxac in 500 mg tablet 2015 016 [id number] [address] [place], [address], 8 08:37:53 Medrol (Henry) 4 mg tablets in a dose pack 2015 016 [facility] #[id number], [address] [place], [address], 8 08:38:01 Patient TargetsNo targets recorded. Patient Instructions Encounter Date Encounter Id Patient Instructions Last Modified By Organization Details Last Modified Time 05/07/2015 [id number] Screening Mammogram [email or web address] Not available 05/07/2015 15:21:42 Colon Cancer Screening VMA [email or web address] Not available 05/07/2015 14:47:03 Cervical Cancer Screening [email or web address] Not available 05/07/2015 15:21:42 Medications were reviewed at this visit and reconciled. Changes in the active medications are reflected in the current medication list and discussed with patient (or caregiver) with instructions for follow up as needed. Printed medication list provided to the patient as part of the visit summary. ? ? ?pt uses only otc meds? ? ? [email or web address] Not available 05/07/2015 14:34:22 06/10/2015 [id number] I have reviewed the note and agree with the assessment and plan of care. 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 Referral for Screening for malignant neoplasm of colon Needs colon cancer screening Referring Physician: Jesus Thurman, Internal Medicine, Encounter Date: 07/21/2017 Results Created Date Observation Date Name Description Value Unit Range Abnormal Flag Note LastModifiedBy Organization Detail LastModifiedTime 07/22/19 18 07/21/2017 lipid panel , serum cholesterol, total 242 mg/dL (<200) high Not Available [facility] [address] [place], [address], 07/21/2017 20:49:33 07/22/19 18 07/21/2017 lipid panel , serum triglyceride 86 mg/dL (<150) Not Available [facility] [address] [place], [address], 07/21/2017 20:49:33 07/22/19 18 07/21/2017 lipid panel , serum HDL chol 70 mg/dL (>39) Not Available [facility] [address] [place], [address], 07/21/2017 20:49:33 07/22/19 18 07/21/2017 lipid panel , serum LDL cholesterol, calculated 155 mg/dL (0-130 ) high Not Available [facility] [address] [place], [address], 07/21/2017 20:49:33 07/22/19 18 07/21/2017 lipid panel , serum non HDL cholesterol (calc) 172 mg/dL (<160) high Not Available [facility] [address] [place], [address], 07/21/2017 20:49:33 Result Notes None recorded. Problems Name Problem SNOMED Code Status Onset Date Resolution Date Notes Provider Name and Address Organization Details Recorded Time Allergic rhinitis 96161501 Active 2011 Kathya shay MA - [facility] 8 08:38:48 Patient status finding 604171627 Completed 201107/21/2017 RECORDED 03/08/20 12 1:53PM BY VICK BUCKNER MA, OFFICE VISIT Kathya Navarrete MA null, [facility] 8 08:38:06 Screenin g for malignan t neoplasm of breast Completed 201111/19/2013 RECORDED 03/08/20 12 1:18PM BY VICK BUCKNER MA, ANNOTATI ON/ADDEN DUM Kathya Navarrete MA null, [facility] 8 08:38:30 Screenin g for malignan t neoplasm of breast Completed 201207/21/2017 RECORDED 02/28/20 13 12:48PM BY MICKIE JACKSON MA, PHONE ENCOUNTE R Kathya Navarrete MA null, [facility] 8 08:38:30 Screenin g for malignan t neoplasm of cervix Completed 201207/21/2017 RECORDED 02/28/20 13 12:48PM BY MICKIE JACKSON MA, PHONE ENCOUNTE R Kathya Navarrete MA null, [facility] 8 08:38:15 Chronic sinusiti s 54973577 Active 2011 Kathya shay, [facility] 8 08:38:38 Adult health examinat ion Completed 201107/21/2017 RECORDED 03/08/20 12 1:54PM BY VICK BUCKNER MA, OFFICE VISIT Kathya shay, [facility] 8 08:38:33 Hyperlip idemia 37668279 Active 2011 Kathya shay, [facility] 8 08:38:42 Malaise and fatigue 480179411 Completed 201111/19/2013 RECORDED 03/08/20 12 1:18PM BY VICK BUCKNER MA, ANNOTATI ON/ADDEN DUM Alexa Hein PA-C [address] [facility] [address], [place], [address] [facility] 6 15:53:28 Menopaus al symptom 81489164 Active 2011 Kathya shay [facility] 8 08:38:27 Administ ration of bacteria l and viral vaccine Completed 200711/19/2013 RECORDED 07/10/19 08 2:32PM BY JESUS FRAZIER MD, OFFICE VISIT [facility] [address] [facility] [address], [place], [address], [facility] 6 15:53:28 Influenz a vaccine needed 77587943829 06 Completed 201111/19/2013 RECORDED 03/08/20 12 2:02PM BY VICK BUCKNER MA, OFFICE VISIT [facility] [address] [facility] [address], [place], [address], [facility] 6 15:53:28 Adult health examinat ion Completed 201111/19/2013 RECORDED 03/08/20 12 1:18PM BY VICK BUCKNER MA, ANNOTATI ON/ADDEN DUM Kathya shay, [facility] 8 08:38:33 Miscarri age 92732708 Active 2011 Kathya shay [facility] 8 08:38:22 Urinary tract infectio us disease 36018803 Active 2011 Kathya shay [facility] 8 08:38:52 Vitamin D deficien cy 20612763 Completed 201111/19/2013 RECORDED 03/08/20 12 1:18PM BY VICK BUCKNER MA, ANNOTATI ON/ADDEN DUM [facility] [address] [facility] [address], [place], [address], [facility] 6 15:53:28 Screenin g for malignan t neoplasm of breast Completed 201112/09/2013 RECORDED 03/08/20 12 1:18PM BY VICK BUCKNER MA, ANNOTATI ON/ADDEN DUM Kathya Navarrete MA null, [facility] 8 08:38:30 Malaise and fatigue 168208468 Completed 201112/09/2013 RECORDED 03/08/20 12 1:18PM BY VICK BUCKNER MA, ANNOTATI ON/ADDEN DUM Alexa Hein PA-C [address], [place], [address], [facility] 6 15:53:28 Administ ration of bacteria l and viral vaccine Completed 200712/09/2013 RECORDED 07/10/19 08 2:32PM BY JESUS FRAZIER MD, OFFICE VISIT Alexa MancillaAvillion-C [address] [facility] [address], [place], [address], [facility] 6 15:53:28 Influenz a vaccine needed 19622086064 06 Completed 201112/09/2013 RECORDED 03/08/20 12 2:02PM BY VICK BUCKNER MA, OFFICE VISIT Alexa Mancilladen CT-C [address] [facility] [address], [place], [address], [facility] 6 15:53:28 Vitamin D deficien cy 05999972 Completed 201112/09/2013 RECORDED 03/08/20 12 1:18PM BY VICK BUCKNER MA, ANNOTATI ON/ADDEN DUM Alexa MancillaAvillion-C [address] [facility] [address], [place], [address], [facility] 6 15:53:28 Tick bite 11389867 Active Alexaalhaji Mancilladen PA-C [address] [facility] [address], [place], [address], [facility] 6 15:53:28 Menopaus al problem 44047060 Active Alexa Hein PA-C [address] [facility] [address], [place], [address], [facility] 6 15:53:28 Acute sinusiti s 62738687 Active Woo Gonsalves MD [address] [facility] [address], [place], [address], [facility] 6 16:44:51 Problem Notes None recorded. Procedures Surgical History Date Name Laterality Status Provider Name and Address Organization Details Recorded Time Breast Surgery completed Kathyavicenta Bonillacait [facility] 07/21/2017 10:51:58 Hymenotomy completed Kathya [facility] 07/21/2017 10:59:55 Imaging Results None recorded. Procedure Notes None recorded. Medical Equipment None Reported. Allergies Allergen ID Allergen Name Allergen Category Reaction Reaction Severity Criticality Documentation Date Start Date Code Code System Note Provider Name and Address Organization Details Recorded Time 81811 Substance with sulfonami de structure and antibacte rial mechanism of action (substanc e) medicatio n Not available Not available Not available 07/08/20142011 01510 8003 SNOMED REACT ION: BACTR IM, FACIA L RASH Yomaira Toro null, [facility] 5 11:00:53 Medications Name Sig Start Date Stop Date Status Note LastModified by Organization Details LastModified Time amoxicill in 500 mg caps 06/10 completed Not Available Not Available Not Available mometason e furoate 0.1 % crea 06/10 completed Not Available Not Available Not Available azithromy christen 500 mg tabs 06/10 completed Not Available Not Available Not Available azithromy christen 250 mg tabs 06/10 completed Not Available Not Available Not Available Sirisha 60 mg tablet Take 1 tablet every day by oral route as directed . active RECORDED 07/10/19 08 2:13PM BY AURELIANO SORTO MA, OFFICE VISIT; Not Available Not Available Not Available levofloxa christen 500 mg tablet Take 1 tablet every 24 hours by oral route for 7 days. 07/21 completed Not Available Not Available Not Available levofloxa christen 750 mg tablet 07/21 completed Not Available Not Available Not Available methylpre dnisolone 4 mg tablets in a dose pack Take 1 package by oral route for 6 days. 07/21 completed Not Available Not Available Not Available doxycycli ne hyclate 100 mg tablet Take 2 tablets every day by oral route for 1 day. 02/28 completed Not Available Not Available Not Available Sirisha Allergy 180 mg tablet Take 1 tablet every day by oral route. active Not Available Not Available No t Available Vitals Date Recorded Body height Body mass index (BMI) Body weight Heart rate Oxygen saturation Oxygen saturation in Arterial blood by Pulse oximetry Body temperature Systolic blood pressure Diastolic blood pressure Provider Name and Address Organization Details Last Updated DateTime 8 158.12 cm 20.4 kg/m2 47988.1 5 g 82 /min 100 % 100 % 99 [degF] 118 mm[Hg] 77 mm[Hg] Kathya Navarrete MA [facility] 8 10:59:26 Date Recorded Body height Body weight Body mass index (BMI) Body temperature Heart rate Oxygen saturation Oxygen saturation in Arterial blood by Pulse oximetry Systolic blood pressure Diastolic blood pressure Provider Name and Address Organization Details Last Updated DateTime 6 158.115 cm 32851.2 15908 g 19.8 kg/m2 99.1 [degF] 83 /min 97 % 97 % 120 mm[Hg] 68 mm[Hg] Kathya Navarrete [facility] 6 13:54:17 Date Recorded Body height Body weight Body mass index (BMI) Heart rate Oxygen saturation Oxygen saturation in Arterial blood by Pulse oximetry Body temperature Systolic blood pressure Diastolic blood pressure Provider Name and Address Organization Details Last Updated DateTime 6 158.115 cm 35986.4 38584 g 19.7 kg/m2 83 /min 98 % 98 % 97.6 [degF] 117 mm[Hg] 76 mm[Hg] Kathya Navarrete MA [facility] 6 15:23:44 Social History Question Answer Notes LastModified by Organizat ion Details LastModified Time Tobacco Smoking Status Former Smoker Kathya shay [facility] 05/07/2015 13:49:53 What Is Your Level Of Alcohol Consumption? None Information not available 05/07/2015 Is Blood Transfusion Acceptable In An Emergency? Yes Information not available 05/07/2015 What Is Your Level Of Caffeine Consumption? Moderate 3 Cups Of Coffee A Day Information not available 05/07/2015 How Much Tobacco Do You Chew? None Information not available 05/07/2015 Are You Currently Employed? Yes Information not available 05/07/2015 What Type Of Diet Are You Following? REGULAR Information not available 05/07/2015 Live Alone Or With Others? With Others Information not available 05/07/2015 Do You Take Precautions To Prevent Distracted Driving? Yes Information not available 05/07/2015 How Often Do You Need To Have Someone Help You When You Read Instructions, Pamphlets, Or Other Written Material From Your Doctor Or Pharmacy? Never Information not available 05/07/2015 Have You Served In The [employer]? No Information not available 07/21/2017 What Was The Date Of Your Most Recent Tobacco Screening? 07/21/2017 Information not available 11/22/2018 How Many Children Do You Have? 2 Dtr Is Chacho Rosa Is Raphael Doss [email or web address] Information not available 05/07/2015 Do You Use Protection During Sex? No Information not available 05/07/2015 Seat Belts Used Routinely Yes Information not available 05/07/2015 Are You Sexually Active? Yes Information not available 05/07/2015 Smoke Alarm In Home Yes Information not available 05/07/2015 Are You Passively Exposed To Smoke? No Information not available 05/07/2015 How Much Tobacco Do You Smoke? No Information not available 05/07/2015 Do You Use Sunscreen Routinely? Yes Information not available 05/07/2015 Sex: Unknown Functional Status Question Answer Note LastModified by Organization D etails LastModified Time Are you able to care for yourself? Yes Information n ot available 05/07/2015 What is your exercise level? Heavy Information not available 07/21/2017 Mental Status None recorded. Family History Relationship Description Onset Age of this Age Resolved Age Notes LastModified by Organization Details LastModified Time Father Malignant tumor of lung 85/dem entia/ alive 2017 [email or web address] Not available 07/21/2017 11:24:59 Father Hypercholest erolemia mdalessandro Not available 10/2015 14:53:06 Mother Diabetes mellitus 8 [email or web address] Not available 07/21/2017 11:23:54 Medical History Condition Response Allergies Y Gynecological History Statement/Question Response Date of Last Pap Smear Date of Last Colonoscopy Most Recent Mammogram Obstetrics History GPAL:G 0 P 0 0 0 0 Immunizations Vaccine Type Date Status Note Provider Nam e and Address Organization Details Recorded Time Tdap 8 completed Not Available [facility] 05/18/2019 02:21:47 Td (adult), 2 Lf tetanus toxoid, preservative free, adsorbed 0 completed Not Available [facility] 11/12/2013 14:12:40 Tdap 8 completed Not Available [facility] 11/12/2013 14:12:40 Past Encounters Encounter ID Performer Location Encounter Start Date Encounter Closed Date Diagnosis/Indication Diagnosis SNOMED-CT Code Diagnosis ICD10 Code Diagnosis Note [id number] auto[facility] erce [address] [facility] [facility] [place] [address] 07/10/2007 00:00:00 [id number] auto[employer] erce [address] [facility] [facility] [place] [address] 03/08/2012 00:00:00 [id number] auto[employer]Comm erce [address] [facility] [facility] [address] 03/08/2012 00:00:00 [id number] auto[employer] erce [address] [facility] [facility] [place] [address] 03/08/2012 00:00:00 [id number] Jesus glass Main Office [address] [facility] [address] [place] [address] 05/07/2015 13:39:28 05/07/2015 14:51:38 Adult health examination 589731947 Z00.00 Screening for malignant neoplasm of colon 165441297 Z12.11 Screening for malignant neoplasm of breast 965834107 Z12.39 Screening for malignant neoplasm of cervix 569278255 Z12.4 Menopausal problem 34045 000 N95.1 [id number] Woo Gonsalves MD Main Office [address] [facility] [address] [place] [address] 06/10/2015 15:08:58 06/10/2015 15:55:41 Acute sinusitis 69484763 J01.90 Persistent sinus symptoms and sinusitis. Start Levofloxac in 500 mg qd for 1 week. Medrol dose pack as dir. . Continue Nasocort AQ and nasal saline as well as MUcinex. If recurrent, call Dr. John ENT for f/u. [id number] Jesus glass Main Office [address] [facility] [address] [place] [address] 07/21/2017 10:39:58 07/21/2017 11:42:59 Adult health examination 404056235 Z00.00 Screening for malignant neoplasm of breast 920432836 Z12.39 Screening for malignant neoplasm of colon 443285592 Z12.11 Administra tion of viral vaccine 72452884 Z23 Health Concerns Section Related Observation LastModified by Organization Detai ls LastModified Time None Recorded Concern Status LastModified by Organization Details LastModified Time None Recorded Advance Directives Directive None Recorded Payers Encounter Date Sequence Insurance Name Policy Number Policy Shoemaker Covered Member ID Shoemaker Member ID Guarantor Name 05/07/2015 1 [facility]) [id number] Michelle Carrillo [id number] Michelle Carrillo 06/10/2015 1 [facility] [id number] Michelle Carrillo [id number] Michelle Carrillo 07/21/2017 1 [facility]) [id number] Michelle Carrillo [id number] Michelle Carrillo Notes Date Note Type Note Provider Name and Address Organization Details Recorded Time 05/07/2015 text/html Generic HPI TemplateReported bypatient.Context:Pt aware of benefits for colon, breast cancer screening and routine cervical cancer/pap smears . She knows benefits of vaccines/ checking lipids etc. But she maintains a consistent patter of declining any and all measures. We discussed again today and she will consider it as she has considered it in past. Jesus shay [facility] 05/07/2015 14:53:21 06/10/2015 text/html 60 year old fema le c/o 3 1/2 week onset of sinus congestion which is getting worse. [place] [facility] [place]. Treated with Z-pack and inhaler which was not filled treated for bronchitis and sinus infection. Pt. went back 4-5 days later and was prescribed Erythromycin , but developed severe diarrhea. Pt. discontinued medication. PT. had ear pain and jaw pain and was seen by the dentist . Had negative XRAys and started on Amoxil. Pt. now c/o bad taste in her mouth , pain in her face and headache. NO cough or ear pain. NO fever, chills. If sees secretions they are thick green. Woo Gonsalves MD [address] [address], [place], [address], [facility] 06/10/2015 16:44:53 OBGyn Episode No OBEpisode recorded.
--- OUTSIDE RECORDS SUMMARY | 2024-05-24 13:24 | XMS_ITS ---
Author Organization [facility] Address [address] [facility] [address] Care Team Providers Care Cop Name Role Phone Yazmin BRANHAM, Adrian Primary Care Provider Unav Toro Zaman [phone] Encounters Encounter Location Date Provider Diagnosis [facility] [address] [place] [address] 11/21/2023 Toro Hartman Plan Of Treatment No Information Progress Notes * Michelle CARRILLO ADOB:1955 (69 yo F)Acc No.[id number]:11/21/2023 Progress Notes Patient:?Michelle CARRILLO Provider:?Toro Hartman DPM :1955???Age:68 Y???Sex:Female D ate:11/21/2023 Address:[address] [place] [address], [facility] Pcp:Adrian Arce MD Subjective: * Chief Complaints: * ??? * Medical History:? Objective: * Vitals:? Assessment: Plan: * Treatment: * Images: * The named appointment provid er may or may not be the originator of this progress note, and it is not deemed complete until electronically signed by the appointment provider. Sign off status: Pending * Provider:Kelsi Hartman DPM Date:? 024 Generated for Printi ng/Faxing/eTransmitting on:?05/24/2024 01:24 PM EST
--- OUTSIDE RECORDS SUMMARY | 2024-05-24 13:24 | XMS_ITS ---
Author Organization [facility] Address [address] [place] [address] Care Team Providers Care Postal Service Window Clerk Name Role Phone Yazmin BRANHAM, Adrian Primary Care Provider Unav ailable Toro Hartman Unavailable [phone] REASON FOR VISIT ON Encounters Encounter Location Date Provider Diagnosis [facility] [address] [place] [address] 08/21/2023 Toro Hartman Plan Of Treatment No Information Progress Notes * Michelle CARRILLO ADOB:1955 (68 yo F)Acc No.[id number]:08/21/2023 Patient:?Michelle Carrillo :1955???Age:68 Y???Sex:Female Address:[address] [place] [address], [place], [address] * true * Date:? Generated for Rishabh wakefield/Mary/eTransmitting on:?05/24/2024 01:24 PM EST
--- OUTSIDE RECORDS SUMMARY | 2024-05-24 13:24 | XMS_ITS | Patient Health Record ---
Author Organization [facility] Address [address] [place] [address] Care Team Providers Care Theatre Arts Professor Name Role Phone Yazmin BRANHAM, Adrian Primary Care Provider Toro Haskins [phone] Allergies Allergen (clinical drug ingredient) Drug/Non Drug Allergy documented on EMR Reaction Allergy Type Onset Date Status sulfa Unknown Drug Allergy Active Reason For Referral No Information Medications Medication SIG (Take, Route, Frequency, Duration) Notes Start Date End Date Status Flonase PRN Active Sirisha Active Sudafed Active Social History Tobacco Use: Social History Observation Description Date Details (start date - stop date) Former Smoker NA - NA Tobacco Use/Smoking Question Answer Notes Are you a: former smoker Additional Findings: Tobacco Non-User Current no n-smoker Alcohol Screen Question Answer Notes Did you have a drink containing alcohol in the p ast year? No Points 0 Interpretation Negative Tobacco use other than smoking: Question Answer Notes Are you an other tobacco user? No Problems Problem Type SNOMED Code ICD Code Onset Dates Problem Status W/U Status Risk Notes Problem Acquired hallux valgus (27904615) Hallux valgus (acquired), left foot (M20.12) Active confirmed Problem Acquired hallux valgus (40451879) Hallux valgus (acquired), right foot (M20.11) Active confirmed Encounters Encounter Location Date Provider Diagnosis [facility] [address] [place] [address] 08/21/2023 Toro Hartman [facility] [address] [place] [address] 10/10/2023 Toro Hartman Plan Of Treatment Pending Test Test Name Order Date X ray : Foot, left 2V 10/11/2017 X ray : Foot, right 2V 10/11/2017 Insurance Providers Payer Name Payer Address Payer Phone Subscriber Number Group Number Insured Name Patient Relationship to Insured Coverage Start Date Coverage End Date Medicare National [employer] [address] [place] [address] Michelle Carrillo Self - patient is the insured [employer] [address] [place] [id number] Michelle Carrillo Self - patient is the insured Medical (General) History Medical History History ICD Code Measles Mumps Chicken pox chronic sinusitis Surgical History Surgery Date(Month/Year) Tooth extraction 2015
--- OUTSIDE RECORDS SUMMARY | 2024-05-24 13:24 | XMS_ITS | Patient Health Record ---
Author Organization [facility] Address [address] [place] [address] Care Team Providers Care Contaminated Land Consultant Name Role Phone JESUS POLLACK Primary Care Provider Unava Radha Tesfaye Unavailable [phone] Reason For Referral No Information Plan Of Treatment No Information Insurance Providers Payer Name Payer Address Payer Phone Subscriber Number Group Number Insured Name Patient Relationship to Insured Coverage Start Date Coverage End Date [facility] [address] [place] [address] [id number] ABBEY SOLIS Self - patient is the insured
--- OUTSIDE RECORDS SUMMARY | 2024-05-24 13:24 | XMS_ITS | Encounter Summary ---
Author Organization [facility] Address [address] [place] [address] Care Team Providers Care Group Work Program Aide Name Role Phone Physician, No Pcp Primary Care Provider Unavaila ble Reason for Visit * Reason Comments STI Screening Encounter Details Date Type Department Care Team (Late st Contact Info) Description 05/21/2024 3:45 PM EST Office Visit Obstetrics & Gynecology - [address] [address] Radha Trinh, [facility] [address] [place] [address] Screen for STD (sexually transmitted disease) (Primary Dx); History of herpes genitalis Social History Tobacco Use Types Packs/Day Years [...] file Not on file Not on file documented as of this encounter Last Filed Vital Signs Vital Sign Reading [...] Mass Index 20.49 05/21/2024 3:46 PM EST documented in this encounter Progress Notes * Bhavna Fair MA - 05/21/2024 3:45 PM EST Pt here for Std screen * Trinh Garcia CNM - 05/21/2024 3:45 PM EST Aleida Carrillo is a 69 y.o. female who presents for sexually transmitted disease check. Sexual history reviewed with the patient. She has a new partner and not consistent with condoms. Previous history of STI herpes. Current symptoms none. Contraception: post menopausal status A provider reviewed the following portions of the patient's chart in this encounter and updated as appropriate: Review of Systems GENERAL: No malaise, significant weight loss or fever RESPIRATORY: No cough, wheezing or shortness of breath CARDIOVASCULAR: No chest pain, leg swelling or palpitations BREAST: no lumps, discharge, pain or change in skin GI: No abdominal discomfort, blood in stools or black stools/ negative for change in bowel habits. : No dysuria, frequency or incontinence MONOTYPE OPERATOR: see HPI MUSCULOSKELETAL: No joint pain or swelling, back pain, or muscle pain. SKIN: No lesions, rash or itching PSYCH: No sleep disturbance, mood disorder or recent psychosocial stressors. Objective Visit Vitals BP 131/82 Pulse 80 Ht 1.575 m (62 ) Wt 50.8 kg (112 lb) BMI 20.49 kg/m?? OB Status Postmenopausal Smoking Status Former BSA 1.49 m?? General: alert and oriented, in no acute distress Lungs: Unlabored resp effort Abdomen: soft, non-tender, without masses or organomegaly Vulva: normal Vagina: atrophied Cervix: Atrophied Uterus: Bimanual deferred Adnexa: Bimenual deferred Lymph Nodes: Inguinal adenopathy: negative Cultures: GC genproble and see below Assessment/Plan Possible STD exposure Discussed safe sexual practice in detail Discussed HSV issues in detail. See orders for STD cultures and assays Orders Placed This Encounter Procedures Chlamydia trachomatis and Neisseria gonorrhoeae molecular study Hepatitis C antibody HIV 1,2 antibody, p24 antigen with reflex to differentiation Treponema pallidum antibody RTO for annual or sooner if needed. Trinh Garcia CNM Note about provider documentation: If you are the patient named in this chart and are reviewing your medical notes, please note that medical documentation is often written with abbreviations and medical terminology, and directed for other providers who may be involved in your care as well. Documentation is critical to record what has happened, what test were ordered, and how they are interpreted w ith the resulting diagnoses. These notes have been made available for patient review but not specifically written for the patient. Important health information is always given to my patients and clinical instructions. Please review your after visit summary and/or contact our clinical staff if you have any questions. documented in this encounter Plan of Treatment Scheduled Orders Name Type Priority Associated Diagnoses Orde r Schedule Hepatitis C antibody Lab Routine Screen for STD (sexually transmitted disease) History of herpes genitalis 1 Occurrences starting 05/21/2024 until 05/21/2025 HIV 1,2 antibody, p24 antigen with reflex to differentiation Lab Routine Screen for STD (sexually transmitted disease) History of herpes genitalis 1 Occurrences starting 05/21/2024 until 05/21/2025 Treponema pallidum antibody Lab Routine Screen for STD (sexually transmitted disease) History of herpes genitalis 1 Occurrences starting 05/21/2024 until 05/21/2025 documented as of this encounter Procedures Procedure Name Priority Date/Time Associated Diagnosis Comments CHLAMYDIA TRACHOMATIS AND NEISSERIA GONORRHOEAE PCR Routine 05/21/2024 3:56 PM EST Screen for STD (sexually transmitted disease) History of herpes genitalis documented in this encounter Results * Chlamydia trachomatis and Neisseria gonorrhoeae molecular study (05/21/2024 3:56 PM EST) Neisseria gonorrhoeae PCR Negative Negative LAB MOLECULAR DIAGNOSTICS METHOD 05/22/2024 10:16 AM EST [facility] Chlamydia trachomatis PCR Negative Negative LAB MOLECULAR DIAGNOSTICS METHOD 05/22/2024 10:16 AM EST [facility] Swab Cervix uteri structure / Unknown Non-blood Collection / Unknown 05/21/2024 3:56 PM EST 05/21/2024 4:16 PM EST Trinh Garcia CNM LAB MICROBIOLOGY - G ENERAL ORDERABLES [facility] [address] [place] [address], documented in this encounter Visit Diagnoses Diagnosis Screen for STD (sexually transmitted disease)- Primary Screening examination for venereal disease History of herpes genitalis documented in this encounter Care Teams Group Work Program Aide Relationship Specialty Start Date End Date Physician, No Pcp PCP - General 05/17/24 documented as of this encounter
--- OUTSIDE RECORDS SUMMARY | 2024-05-24 13:24 | XMS_ITS | Encounter Summary ---
Author Organization [facility] Address [address] [place] [address] Care Team Providers Care Donkey Ride Operator Name Role Phone Unavailable Primary Care Provider Unavailabl e Reason for Visit * Reason Onset Date Comments Request For Order(s) 05/03/2024 Encounter Details Date Type Department Care Team (Late st Contact Info) Description 05/03/2024 Telephone Obstetrics and Gynecology - [place] [address] [place] [phone] Ambrose Kelly CNM [address] [place] [address] Request For Order(s) Social History Tobacco Use Types Packs/Day Years [...] on file documented as of this encounter Progress Notes * Rissa Escobedo RN - 05/03/2024 3:31 PM EST Pt needs to be seen to have testing-as provider needs to discuss testing options and some testing needs to be completed with a swab. Pt can be scheduled next available with any provider. * Marilin Manning - 05/03/2024 3:19 PM EST Pt called states she had unprotected sex with someone and wants to have std testing and hiv testingstates she works at [employer] and wants to have the orders sent there so she can have it done at her workplace - please call documented in this encounter Plan of Treatment Not on file documented as of this encounter Visit Diagnoses Not on filedocumented in this encounter
--- OUTSIDE RECORDS SUMMARY | 2024-05-24 13:25 | XMS_ITS ---
Author Organization [facility] Address [address] [place] [address] Care Team Providers Care Syrup Mixer Assistant Name Role Phone Yazmin BRANHAM, Adrian Primary Care Provider Unav ailable Toro Hartman Unavailable [phone] REASON FOR VISIT Cancel Encounters Encounter Location Date Provider Diagnosis [facility] [address] [place] [address] 10/10/2023 Toro Hartman Plan Of Treatment No Information Progress Notes * Michelle CARRILLO ADOB:1955 (68 yo F)Acc No.[id number]:10/10/2023 Patient:?Michelle Carrillo :1955???Age:68 Y???Sex:Female Address:[address] [place] [address], [place], [address] * true * Date:? Generated for Maria Doloresi twyla/Mary/eTransmitting on:?05/24/2024 01:24 PM EST
[2024-05-25 07:50] LABS: Syphilis Screen Nonreactive (Nonreactive)
[2024-05-25 07:59] LABS: HIV AB/AG Nonreactive (Nonreactive); HIV Num 1 0.06 S/CO (0.00-0.99); ~HepC Num1 0.13 S/CO (0.00-0.79); ~Hepatitis C Antibody Nonreactive (Nonreactive)
== END 2024-05-24 11:13 | disposition home or self-care (01) ==
LOC: HO.LAB 11:12
PROVIDERS: PCP Internal Medicine; Visit Provider Advanced Practice Midwife
DX: Z11.3 Encounter for screening for infections with a predominantly sexual mode of transmission (principal); Z86.19 Personal history of other infectious and parasitic diseases
CPT/HCPCS: 36415; 86780; 86803; 87389

== ENCOUNTER 2024-08-12 13:48 | Outpatient (AMB) | payer MEDICARE, OTHER, SELFPAY ==
--- NOTE | 2024-08-12 13:57 | A.OFFPC_ITS ---
Intake Visit Reasons: awv Allergies sulfamethoxazole [From Bactrim] Allergy (Unknown, Verified 02/14/24 13:45) Unknown trimethoprim [From Bactrim] Allergy (Unknown, Verified 02/14/24 13:45) Unknown Bactrum Allergy (Severe, Uncoded 02/14/24 13:45) Rash Seasonal Allergy (Severe, Uncoded 02/14/24 13:45) Rash Tobacco use date assessed: 12/11/23 Dental Screening Dental Screen Date: 12/11/23 [facility] Medical History (Updated 02/19/24 @ 10:01 by Alka Smith MD) Genital herpes Eczema Sinusitis Asthma Bronchitis, mucopurulent recurrent Allergic urticaria Reactive airway disease Murmur Tachycardia Post-COVID syndrome Bronchitis COVID-19 Surgical History History of appendectomy Family History Mother Diabetes Lymphoma Father Lung cancer Alzheimer disease Maternal Grandmother Congestive heart failure Maternal Grandfather Diabetes Social History Household Members: None Housing: House Alcohol intake: never Patient Tobacco Use Status: Former Tobacco user Tobacco use type: Cigarette Years Smoked: 20+ years e-Cigarette/Vaping Use: Never Used Current occupational status: employed 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 Jona Reyes, Lyssa Cummings, Mert Solomon and colleagues, with an educational paris from [employer]. Physical exam (Primary Care) Tobacco/Smoking Status: Tobacco use Status Tobacco use date assessed 12/11/23 02/27/24 10:48 Patient Tobacco Use Status Former Tobacco user 02/27/24 10:48 Tobacco use type Cigarette 02/27/24 10:48 e-Cigarette/Vaping Use Never Used 02/27/24 10:48 Thrive Assessment: Date of Thrive Assessment Date Thrive assessed 12/11/23 02/27/24 10:48 Coding
--- NOTE | 2024-08-12 14:01 | AM.OFFVISMDC ---
Intake Vital Signs 08/12/24 14:09 Height 5 ft 2 in Weight 107 lb 4 oz BMI 19.6 BP 104/64 Blood Pressure Location Rt brachial Position Sitting Respiration 12 Pulse 86 Pulse Source Pulse Oximeter Pulse Oximetry (%) 97 Oxygen Delivery Method Room Air Intake Visit Reasons: awv Intake Note: Medical wellness visit Buoy Tender Required: No Allergies sulfamethoxazole [From Bactrim] Allergy (Unknown, Verified 02/14/24 13:45) Unknown trimethoprim [From Bactrim] Allergy (Unknown, Verified 02/14/24 13:45) Unknown Bactrum Allergy (Severe, Uncoded 02/14/24 13:45) Rash Seasonal Allergy (Severe, Uncoded 02/14/24 13:45) Rash HPI HPI Comments History of Present Illness Details The patient is a 69-year-old female with a past medical history of allergies, chronic sinusitis, eczema, history of BCC, osteoporosis, TMJ presenting for follow up Pulm: Follows with Dr Mary. On dupixent. Asthma/Chronic sinusitis/allergic rhinitis: History of COVID . 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 Declines mammogram, [facility] Pulm-Dr Mary Cologua-previously sent but not completed. ok for resend. ROS see HPI PHYSICAL EXAM: GENERAL: Alert and oriented x 3. NAD EYES: EOMI. Anicteric. HENT: Moist mucous membranes. No scleral icterus. No cervical lymphadenopathy. LUNGS: Clear to auscultation bilaterally. CARDIOVASCULAR: Regular rate and rhythm. soft systolic murmur. No JVD. ABDOMEN: Soft, non-tender +bs EXTREMITIES: No edema. Non-tender. SKIN: No rashes or lesions. Warm. NEUROLOGIC: No focal neurological deficits. CN II-XII grossly intact PSYCHIATRIC: Cooperative. Appropriate mood and affect [facility] Medical History Genital herpes Eczema Sinusitis Asthma Bronchitis, mucopurulent recurrent Allergic urticaria Reactive airway disease Murmur Tachycardia Post-COVID syndrome Bronchitis COVID-19 Surgical History History of appendectomy Family History Mother Diabetes Lymphoma Father Lung cancer Alzheimer disease Maternal Grandmother Congestive heart failure Maternal Grandfather Diabetes Social History Household Members: None Housing: House Alcohol intake: never Patient Tobacco Use Status: Former Tobacco user Tobacco use type: Cigarette Years Smoked: 20+ years e-Cigarette/Vaping Use: Never Used Current occupational status: employed 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 Current occupational exposures/hazards: No Cognitive needs: No Hearing needs: No Vision needs: Yes Questionnaire Medicare Wellness Checkup What [age] What gender do you identify with?: female During the past 4 weeks, how much have you been bothered by emotional problems such as feeling anxious, depressed, irritable, sad or downhearted, and blue?: not at all During the past 4 weeks, how much bodily pain have you generally had?: no pain During the past 4 weeks, was someone available to help you if you needed & wanted help?: yes, as much as I wanted Can you get to places out of walking distance without help? (For eg., can you travel alone on buses, taxis or drive your car?): Yes Can you go shopping for groceries or clothes without someone's help?: Yes Can you prepare your own meals?: Yes Can you do your housework without help?: Yes Because of any health problems, do you need the help of another person with your personal care needs such as eating, bathing, dressing or getting around the house?: No Can you handle your own money without help?: Yes During the past 4 weeks, how would you rate your health in general?: excellent During the past 4 weeks how have things been going for you?: very well; could hardly better Are you having difficulties driving your car?: no Do you always fasten your seat belt when you are in a car?: yes, usually During past 4 weeks, have you been bothered by the following: never: Falling or dizzy when standing up, Sexual problems?, Trouble eating well?, Teeth or denture problems?, Problems using the telephone? and Tiredness or fatigue? Have you fallen 2 or more times in the past year?: No Are you afraid of falling?: No Are you a smoker?: no How often do you have trouble taking medicines the way you have been told to take them?: I do not have to take medicine How confident are you that you can control & manage most of your health problems?: very confident What is your race?: White Mini Mental State Exam (MMSE) Orientation What is the (year) (season) (date) (day) (month)?: year (2024), season (spring), date (08/12), day () and month () Where are we (state) (county) (town or city) (hospital) (floor)?: state ([place]), county ([place]), town or city ([place]), hospital/clinic ([facility]) and floor ([place] ) Registration Name of 3 unrelated objects clearly and slowly, then ask patient to repeat all 3 of them. (1st repeat determines score. Make sure they can repeat all three): object 1 (Fall), object 2 (flag) and object 3 (tred) Attention & Calculation (CHOOSE ONE) Ask pt to begin with 100 & count backward by 7. Stop after 5 repeats. If pt cannot ask them to spell the word WORLD backward.: 93 (93), 86 (83), 79 (79), 72 (72) and 65 (65) Recall Ask patient to repeat the 3 items from question #3.: object 1 (Fall) and object 2 (Flag) Language Show patient a wristwatch & ask what it is. Repeat for pencil.: watch and pencil Ask the patient to repeat the phrase 'No ifs, ands, or buts' after you.: correct Ask the patient to 'take a piece of paper with their right hand' 'fold paper in half' 'place paper on floor': take paper in right hand Print the sentence 'CLOSE YOUR EYES' on a piece. If patient actually closes eyes then score.: followed written direction Give patient a blank piece of paper & ask to write a sentence. Score if it contains a noun & verb.: sentence contains subject and verb Ask patient to copy figure of intersecting pentagons exactly. Score if all 10 angles & 2 intersects are included.: all 10 angles present & 2 are intersected Score Score: 27 Activity of Daily Living Bathing - sponge bath, tub bath or shower: receives no assistance (gets in/out by self, if usual bathing means Dressing - getting clothes from closets & drawers, including inner/outer garments & fasteners.: gets clothes & gets completely dressed without help Toileting - going to the 'toilet room' for urine/bowel elimination & cleaning self/arranging clothes: goes to toilet room, cleans self, arranges clothes without help Transfer: moves in & out of bed and chair without help (may use support object) Continence: controls urination/bowel movements completely by self Feeding: feeds self without help Total Score: 0 Information obtained from: patient Using telephone: independent Traveling: independent Shopping: independent Preparing meals: independent Housework: independent Taking medicine: independent Managing money: independent Physical Exam Vital Signs: Last Vital Signs Pulse 86 08/12/24 14:09 Resp 12 08/12/24 14:09 BP 104/64 08/12/24 14:09 Pulse Ox 97 08/12/24 14:09 Oxygen Delivery Method Room Air 08/12/24 14:09 BMI result Body Mass Index 19.6 Assessment & Plan Assessment & Plan (1) Medicare annual wellness visit, subsequent: Code(s): Z00.00 - Encounter for general adult medical examination without abnormal findings (2) Allergies: Code(s): T78.40XA - Allergy, unspecified, initial encounter Qualifiers: Encounter type: sequela Qualified Code(s): T78.40XS - Allergy, unspecified, sequela (3) Asthma: Code(s): J45.909 - Unspecified asthma, uncomplicated Qualifiers: Asthma severity: severe Asthma persistence: persistent Asthma complication type: with acute exacerbation Qualified Code(s): J45.51 - Severe persistent asthma with (acute) exacerbation Plan 69 y/o for MWV No concerning findings Chronic medical conditions are stable Labs ordered. Frequent sinus infections Orders: Orders Lipid Panel Today J45.51 - Severe persistent asthma with (acute) exacerbation, T78.40XA - Allergy, unspecified, initial encounter, Z00.00 - Encounter for general adult medical examination without abnormal findings TSH reflex Free T4 Today J45.51 - Severe persistent asthma with (acute) exacerbation, T78.40XA - Allergy, unspecified, initial encounter, Z00.00 - Encounter for general adult medical examination without abnormal findings UA CC w/rflx Micro + Cult Today J45.51 - Severe persistent asthma with (acute) exacerbation, T78.40XA - Allergy, unspecified, initial encounter, Z00.00 - Encounter for general adult medical examination without abnormal findings Complete Blood Count Auto Diff Today J45.51 - Severe persistent asthma with (acute) exacerbation, T78.40XA - Allergy, unspecified, initial encounter, Z00.00 - Encounter for general adult medical examination without abnormal findings Comprehensive Met. Panel Today J45.51 - Severe persistent asthma with (acute) exacerbation, T78.40XA - Allergy, unspecified, initial encounter, Z00.00 - Encounter for general adult medical examination without abnormal findings Referrals Cologuard Test Z12.11 - Encounter for screening for malignant neoplasm of colon, Z12.12 - Encounter for screening for malignant neoplasm of rectum Medications: New amoxicillin-pot clavulanate 875-125 mg 1 tab PO BID 20 tabs 1RF Refilled albuterol sulfate 90 mcg/actuation 2 puffs PO Q4-6H 1 ea 3RF valacyclovir 500 mg PO BID 6 tabs 5RF Quality Reporting (2019) Fall Risk Screening ([facility] 139) Last assessed Fall Risk: 08/12/24 Fall risk assessment: No Falls in past year Coding Level of Care Code Medicare Subsequent (G0439) Diagnoses Medicare annual wellness visit, subsequent Z00.00 Allergy, sequela T78.40XS Encounter type: sequela Severe persistent asthma with acute exacerbation J45.51 Asthma severity: severe Asthma persistence: persistent Asthma complication type: with acute exacerbation
[2024-08-12 14:09] VITALS: BP 104/64; PULSE 86; RESP 12; O2SAT 97; BMI 19.6
--- OUTSIDE RECORDS SUMMARY | 2024-08-12 16:00 | XMS_ITS ---
Author Organization [facility] Address [address] [place] [address] Care Team Providers Care Truck Unloader Name Role Phone Yazmin BRANHAM, Adrain Primary Care Provider Unav ailable Toro Hartman Unavailable [phone] REASON FOR VISIT ON Encounters Encounter Location Date Provider Diagnosis [facility] [address] [place] [address] 08/21/2023 Toro Hartman Plan Of Treatment No Information Progress Notes * Michelle CARRILLO ADOB:1955 (68 yo F)Acc No.[id number]:08/21/2023 Patient:?Michelle Carrillo :1955???Age:68 Y???Sex:Female Address:[address] [place] [address], [place], [address] * true * Date:? Generated for Rishabh wakefield/Mary/eTransmitting on:?08/12/2024 04:00 PM EDT
--- OUTSIDE RECORDS SUMMARY | 2024-08-12 16:00 | XMS_ITS | Clinical Summary ---
Author Organization [facility] Address [address] [place] [phone] Phone Care Team Providers Care Middleware Engineer Name Role Phone Physician, No Pcp Primary Care Provider Unavaila ble Allergies Active Allergy Reactions Criticality Noted Date Comments Pollen Extracts Itching 10/10/2022 Seasonal Allergies Sulfamethoxazole-Trimethoprim Rash 2022 Medications Vitamin D3 25 mcg (1,000 unit) capsule Take 1 capsule (1,000 Units total) by mouth 1 (one) time each day. 4 Active doxycycline (VIBRAMYCIN) 100 mg capsule Take 1 capsule (100 mg total) by mouth 2 (two) times a day. for 10 days 4 Active doxycycline hyclate (VIBRA-TABS) 100 mg tablet TAKE 1 TABLET ORALLY 2 TIMES DAILY 4 Active Dupixent Pen 300 mg/2 mL pen 4 Active Dupixent Syringe 300 mg/2 mL syringe 4 Active levoFLOXacin (LEVAQUIN) 750 mg tablet Take 1 tablet (750 mg total) by mouth 1 (one) time each day. for 7 days 4 Active nitrofurantoin (MACRODANTIN) 100 mg capsule TAKE 1 TABLET BY MOUTH 2 TIMES A DAY, TAKE WITH MEAL/FOOD 4 Active predniSONE (DELTASONE) 10 mg tablet TAKE 2 TAB ORAL ONCE DAILY FOR 5 DAYS THEN 1 TAB ORAL ONCE DAILY FOR 5 DAYS THEN STOP DIRECTED 4 Active predniSONE (DELTASONE) 20 mg tablet TAKE 2 TABLETS BY MOUTH ONCE DAILY FOR 5 DAYS. DAYS 11-21 OF THERAPY 4 Active predniSONE (DELTASONE) 50 mg tablet 4 Active valACYclovir (VALTREX) 500 mg tablet Take 1 tablet (500 mg total) by mouth 2 (two) times a day. for 3 days 4 Active acyclovir (ZOVIRAX) 400 mg tablet Take 1 tablet (400 mg total) by mouth. for 10 days 4 Active budesonide (PULMICORT) 0.5 mg/2 mL nebulizer solution INHALE 1 VIAL (2 ML) VIA NEBULIZER MACHINE EVERY DAY 4 Active doxycycline (ADOXA) 100 mg tablet Take 1 tablet (100 mg total) by mouth 2 (two) times a day. 5 Active clotrimazole-b etamethasone (LOTRISONE) 1-0.05 % cream APPLY TOPICALLY TO AFFECTED AREA TWICE DAILY FOR NO MORE THAN 10 DAYS 30 g 5 Active Additional Information Patient not taking.Reported on 07/11/2024 metroNIDAZOLE (FLAGYL) 500 mg tabletIndicati ons:Bacterial vaginitis Take 1 tablet (500 mg total) by mouth 2 (two) times a day for 7 days. Do not use mouth wash or consume alcohol until 48 hours after last dose 14 tablet 5 025 metroNIDAZOLE (METROGEL) 0.75 % (37.5mg/5 gram) vaginal gel Insert 1 Applicatorful into the vagina at bedtime for 5 days. 70 g 5 025 Active Problems Problem Noted Date Diagnosed Date Herpes genitalis in women 04/11/2023 Overview (05/08/2024): Last Assessment & Plan: Counseled pt re: findings c/w HSV. Will treat with Valtrex. Microscopic hematuria 04/11/2023 Overview (05/08/2024): Last Assessment & Plan: Will send culture and treat prn. Encounters Date Type Department Care Team Description 07/26/2024 Telephone Obstetrics and Gynecology - [address] [phone] Jocelynn Haddad CNM Vaginal/vulvar Complaint 07/19/2024 Telephone Obstetrics and Gynecology - [address] [phone] Jocelynn Haddad CNM Vaginal Discharge 07/11/2024 2:30 PM EDT Office Visit Obstetrics and Gynecology [address] [phone] Jocelynn Haddad CNM Bacterial vaginitis (Primary Dx); Screen for STD (sexually transmitted disease); Vaginal discharge 05/21/2024 3:45 PM EST Office Visit Obstetrics & Gynecology - [address] [phone] Trinh Garcia CNM Screen for STD (sexually transmitted disease) (Primary Dx); History of herpes genitalis from Last 3 Months Surgical History Surgery Date Site/Laterality Comments APPENDECTOMY PROCEDURE: ND APPENDECTOMY WISDOM TOOTH EXTRACTION N/A PROCEDURE: HISTORICAL [...] Date Smoking Tobacco: Former Smokeless Tobacco: Never Tobacco Cessation:Counseling Given: Not Answered Alcohol Use Standard Drinks/Week Comments Not Currently 0 (1 standard drink = 0.6 oz pur e alcohol) Comments No Sex and Gender Information Value Date Recorded Sex Assigned at Not on file Legal Sex Female 8:12 PM EST Gender Identity Not on file Sexual Orientation Not on file Obstetrics History Para Term AB IAB SAB Ectopic Multiple Livin g Live Births 3 2 1 Date Outcome GA Total Labor Labor/2nd/3rd Weight Sex Type Anes PTL Francisca A1 A5 Name Clin Para Para AB Last Filed Vital Signs Vital Sign Reading Time Taken Comments Blood Pressure 102/70 07/11/2024 2:36 PM EDT Pulse 76 07/11/2024 2:36 PM EDT Temperature - - Respiratory Rate - - Oxygen Saturation - - Inhaled Oxygen Concentration - - Weight 48.5 kg (107 lb) 07/11/2024 2:36 PM EDT Height 157.5 cm (5' 2 ) 05/21/2024 3:46 PM EST Body Mass Index 19.57 05/21/2024 3:46 PM EST Plan of Treatment Upcoming Encounters Date Type Department Care Team (Late st Contact Info) Description 10/16/2024 3:30 PM EDT Office Visit Obstetrics & Gynecology - [address] [phone] Trinh Garcia, CNM [address] [place] [address] Health Maintenance Due Date Last Done Comments Breast Cancer Screening 1955 Pneumococcal Vaccine: 50+ Years (1 of 1 - PCV) 2004 Zoster Vaccines (1 of 2) 2004 Cholesterol Screening (Lipid Panel) 05/25/2023 Colorectal Cancer Screening: Colonoscopy 05/25/2023 Depression Screening 05/25/2023 Falls Risk Assessment 05/25/2023 Medicare Annual Wellness Visit 05/25/2023 Osteoporosis Screening (Bone Density Screening) 05/25/2023 Social Influencers of Health Screening 05/25/2023 COVID-19 Vaccine (3 - 2023-2 5 season) 2023 06/03/2021, 05/06/2021 Influenza Vaccine (Season Ended) 2024 DTaP,Tdap,and Td Vaccines (4 - Td or Tdap) 07/22/2027 07/21/2017, 07/10/2007, 01/13/2000 RSV Immunization Adult Patients (1 - 1-dose 75+ series) 2029 Hepatitis [...] patient's age to complete this topic Meningococcal B Vaccine Aged Out No l onger eligible based on patient's age to complete this topic RSV Immunization Patients Under 20 months Aged Out No longer eligible b ased on patient's age to complete this topic Varicella Vaccines Aged Out No longer eligible based on patient's age to complete this topic Procedures Procedure Name Priority Date/Time Associated Diagnosis Comments POC WET MOUNT Routine 07/11/2024 3:13 PM EDT Bacterial vaginitis Vaginal discharge TRICHOMONAS VAGINALIS ANTIGEN Routine 07/11/2024 3:13 PM EDT Screen for STD (sexually transmitted disease) CHLAMYDIA TRACHOMATIS AND NEISSERIA GONORRHOEAE PCR Routine 07/11/2024 3:13 PM EDT Screen for STD (sexually transmitted disease) CHLAMYDIA TRACHOMATIS AND NEISSERIA GONORRHOEAE PCR Routine 05/21/2024 3:56 PM EST Screen for STD (sexually transmitted disease) History of herpes genitalis HEPATITIS C SCREENING Routine 05/05/2023 from Last 3 Months or Most Recently Relevant to Health Maintenance Results * Trichomonas vaginalis antigen (07/11/2024 3:13 PM EDT) Pathologist [facility] Trichomonas vaginalis Negative Negative 07/11/2024 7:58 PM EDT [facility] Swab Vaginal structure / Unknown Non-blood Collection / Unknown 07/11/2024 3:13 PM EDT 07/11/2024 3:13 PM EDT Jocelynn Haddad CNM LAB MICROBIOLOGY - GENERAL ORD ERABLES Final Result [facility] [address] [place] [address], * Chlamydia trachomatis and Neisseria gonorrhoeae molecular study (07/11/2024 3:13 PM EDT) Only the most recent of2 resultswithin the time period is included. Pathologist [facility] Neisseria gonorrhoeae PCR Negative Negative LAB MOLECULAR DIAGNOSTICS METHOD 07/12/2024 3:38 PM EDT [facility] Chlamydia trachomatis PCR Negative Negative LAB MOLECULAR DIAGNOSTICS METHOD 07/12/2024 3:38 PM EDT [facility] Swab Cervix uteri structure / Unknown Non-blood Collection / Unknown 07/11/2024 3:13 PM EDT 07/11/2024 3:13 PM EDT Jocelynn Haddad CNM LAB MICROBIOLOGY - GENERAL ORD ERABLES Final Result [facility] [address] [place] [address], * (ABNORMAL) POC Wet [place] (07/11/2024 3:13 PM EDT) Trichomonas, Wet Prep POC Absent Absent Yeast, Wet Prep POC Negative Not Applicable, Negative Clue Cells, Wet Prep POC Positive(A) Not Applicable, Negative Whiff Test, Wet Prep POC Positive(A) Not Done, Negative PH FL Type POC 5.0 Vaginal Fluid Vaginal structure / Unknown 07/11/2024 3:13 PM EDT Jocelynn Haddad CNM POINT OF CARE TEST ENTER/EDIT ORDERABLES Final Result * Hepatitis C Screening (05/05/2023) Hepatitis C Screening abstracted Historical Provider HEALTH MAINTENANCE Final Result from Last 3 Months or Most Recently Relevant to Health Maintenance Insurance MEDICARE [facility] Care Teams Middleware Engineer Relationship Specialty Start Date End Date Physician, No Pcp PCP - General 05/17/24
--- OUTSIDE RECORDS SUMMARY | 2024-08-12 16:00 | XMS_ITS ---
Author Organization [facility] Address [address] [place] [address] Care Team Providers Care Sweep Molder Name Role Phone Yazmin BRANHAM, Adrian Primary Care Provider Unav Toro Zaman [phone] Encounters Encounter Location Date Provider Diagnosis [facility] [address] [place] [phone] 11/21/2023 Toro Hartman Plan Of Treatment No Information Progress Notes * Michelle CARRILLO ADOB:1955 (69 yo F)Acc No.[id number]:11/21/2023 Progress Notes Patient:?Michelle CARRILLO Provider:?Toro Hartman DPM :1955???Age:68 Y???Sex:Female D ate:11/21/2023 Address:[address] [place] [address], [facility] Pcp:Adrian Arce MD Subjective: * Chief Complaints: [...] DPM Date:? 024 Generated for Printi ng/Faxing/eTransmitting on:?08/12/2024 04:00 PM EDT
--- OUTSIDE RECORDS SUMMARY | 2024-08-12 16:00 | XMS_ITS | Patient Health Record ---
Author Organization [facility] Address [address] [place] [address] Care Team Providers Care Patient Care Nursing Assistant Name Role Phone Yazmin BRANHAM, Adrian Primary Care Provider Toro Haskins [phone] Allergies Allergen (clinical drug ingredient) Drug/Non Drug [...] Status Risk Notes Problem Acquired hallux valgus (74389467) Hallux valgus (acquired), left foot (M20.12) Active confirmed Problem Acquired hallux valgus (60040547) Hallux valgus (acquired), right foot (M20.11) Active confirmed Encounters Encounter Location Date Provider Diagnosis [facility] [address] [place] [phone] 08/21/2023 Toro Hartman [facility] [address] [place] [address] 10/10/2023 Toro Hartman Plan Of Treatment Pending Test Test Name Order Date X ray : Foot, left 2V 10/11/2017 X ray : Foot, right 2V 10/11/2017 Insurance Providers Payer Name Payer Address Payer Phone Subscriber Number Group Number Insured Name Patient Relationship to Insured Coverage Start Date Coverage End Date Medicare National [employer] [address] [place] [address] Michelle Carrillo Self - patient is the insured [employer] [address] [place] [address] Michelle Carrillo Self - patient is the insured Medical (General) History Medical History History ICD Code Measles Mumps Chicken pox chronic sinusitis Surgical History Surgery Date(Month/Year) Tooth extraction 2015
--- OUTSIDE RECORDS SUMMARY | 2024-08-12 16:00 | XMS_ITS | Patient Health Record ---
Author Organization [facility] Address [address] [place] [address] Care Team Providers Care Admissions Gate Attendant Name Role Phone JESUS POLLACK Primary Care Provider Unava Radha Tesfaye Unavailable [phone] Reason For Referral No Information Plan Of Treatment No Information Insurance Providers Payer Name Payer Address Payer Phone Subscriber Number Group Number Insured Name Patient Relationship to Insured Coverage Start Date Coverage End Date [facility] [address] [place] [address] [id number] ABBEY SOLIS Self - patient is the insured
--- OUTSIDE RECORDS SUMMARY | 2024-08-12 16:00 | XMS_ITS | Data Portability ---
Author Organization [facility], Main Office Address [address] [place] [address] Care Team Providers Care Contact Lens Assistant Name Role Phone ALEXA HEIN OTHER Assessment No assessment recorded. Plan of Treatment Reminders Order Date Submit Date Provider Last Modified By Organization Details Last Modified Time Details Appointments None recorded. Lab lipid panel, serum 2017 018 ALEXSANDRA Not available 8 20:49:33 lipid panel, serum 2015 016 abigby Not available 6 09:41:29 Referral gastroente rologist referral - Needs colon cancer screening 2017 018 scastellan o4 Not available 8 11:42:[address] referral 2015 016 [facility], [address] [place] [address], [place], [address], 6 14:42:14 Procedures colonoscop y screening (PROC) 2017 018 abigby Not available 8 16:07:47 colonoscop y screening (PROC) 2015 016 abigby Not available 6 09:16:32 Surgeries None recorded. Imaging MAMMO, screening, bilateral - Perform Diagnostic Mammogram and Breast Ultrasound if needed / Perform Ultrasound Guided Aspiration and/or Breast Biopsy if warranted 2017 018 scastellan o4 Not available 8 11:42:59 bone density, hip, spine & forearm 2015 016 abigby Not available 6 13:32:36 routine mammograph y exam, screening 2015 016 abigby Not available 6 10:18:16 routine mammograph y exam, screening 2015 016 abigby Not available 6 10:18:16 Medication Orders levofloxac in 500 mg tablet 2015 016 [facility][id number], [address] [place], [address], 8 08:37:53 Medrol (Henry) 4 mg tablets in a dose pack 2015 016 [facility] #0838, [address] [place], [address], 8 08:38:01 Patient TargetsNo targets recorded. Patient Instructions Encounter Date Encounter Id Patient Instructions Last Modified By Organization Details Last Modified Time 05/07/2015 [id number] Screening Mammogram Not available 05/07/2015 15:21:42 Colon Cancer Screening VMA mdalessandro Not available 05/07/2015 14:47:03 Cervical Cancer Screening [email or web address] Not available 05/07/2015 15:21:42 Medications were reviewed [...] ? mdalessandro Not available 05/07/2015 14:34:22 06/10/2015 [id number] I have reviewed the note and agree with the assessment and plan of care. 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 07/21/2017 20:49:33 07/22/19 18 07/21/2017 lipid panel , serum triglyceride 86 mg/dL (<150) Not Available [facility] (Centralized Electronic Ordering - All Locations) Patient Can Go To The Location Of Their Choice, [id number] 07/21/2017 20:49:33 07/22/19 18 07/21/2017 lipid panel , serum HDL chol 70 mg/dL (>39) Not Available [facility] (Centralized Electronic Ordering - All Locations) Patient Can Go To The Location Of Their Choice, [id number] 07/21/2017 20:49:33 07/22/19 18 07/21/2017 lipid panel , serum LDL cholesterol, calculated 155 mg/dL (0-130 ) high Not Available [facility] (Centralized Electronic Ordering - All Locations) Patient Can Go To The Location Of Their Choice, [id number] 07/21/2017 20:49:33 07/22/19 18 07/21/2017 lipid panel , serum non HDL cholesterol (calc) 172 mg/dL (<160) high Not Available [facility] (Centralized Electronic Ordering - All Locations) Patient Can Go To The Location Of Their Choice, [facility] 07/21/2017 20:49:33 Result Notes None recorded. Problems Name Problem SNOMED Code Status Onset Date Resolution Date Notes Provider Name and Address Organization Details Recorded Time Allergic rhinitis 10492164 Active 2011 CORWIN Norman [place] [facility] 8 08:38:48 Patient status finding 772532078 Completed 201107/21/2017 RECORDED 03/08/20 12 1:53PM BY VICK BUCKNER MA, OFFICE VISIT CORWIN Norman MA [facility] 8 08:38:06 Screenin g for malignan t neoplasm of breast Completed 201111/19/2013 RECORDED 03/08/20 12 1:18PM BY VICK BUCKNER MA, ANNOTATI ON/ADDEN DUM Kathya shay, [facility] 8 08:38:30 Screenin g for malignan t neoplasm of breast Completed 201207/21/2017 RECORDED 02/28/20 13 12:48PM BY MICKIE JACKSON MA, PHONE ENCOUNTE R Kathya Navarrete MA null, [facility] 8 08:38:30 Screenin g for malignan t neoplasm of cervix Completed 201207/21/2017 RECORDED 02/28/20 13 12:48PM BY MICKIE JACKSON MA, PHONE ENCOUNTE R Kathya Navarrete MA null, [facility] 8 08:38:15 Chronic sinusiti s 33020748 Active 2011 Kathya shay, [facility] 8 08:38:38 Adult health examinat ion Completed 201107/21/2017 RECORDED 03/08/20 12 1:54PM BY VICK BUCKNER MA, OFFICE VISIT Kathya shay, [facility] 8 08:38:33 Hyperlip idemia 24201547 Active 2011 Kathya shay, [facility] 8 08:38:42 Malaise and fatigue 885351748 Completed 201111/19/2013 RECORDED 03/08/20 12 1:18PM BY VICK BUCKNER MA, ANNOTATI ON/ADDEN DUM Alexa Hein PA-C [address] [facility] [address], [facility] [place], [address] , [facility] 6 15:53:28 Menopaus al symptom 55490849 Active 2011 Kathya shay, [facility] 8 08:38:27 Administ ration of bacteria l and viral vaccine Completed 200711/19/2013 RECORDED 07/10/19 08 2:32PM BY JESUS FRAZIER MD, OFFICE VISIT [facility] [address] [facility] [address], [place], [address], [facility] 6 15:53:28 Influenz a vaccine needed 82550363523 06 Completed 201111/19/2013 RECORDED 03/08/20 12 2:02PM BY VICK BUCKNER MA, OFFICE VISIT [facility] [address] [facility] [address], [place], [address], [facility] 6 15:53:28 Adult health examinat ion Completed 201111/19/2013 RECORDED 03/08/20 12 1:18PM BY VICK BUCKNER MA, ANNOTATI ON/ADDEN DUM Kathya shay [facility] 8 08:38:33 Miscarri age 14006505 Active 2011 Kathya shay [facility] 8 08:38:22 Urinary tract infectio us disease 90020666 Active 2011 Kathya shay [facility] 8 08:38:52 Vitamin D deficien cy 40382049 Completed 201111/19/2013 RECORDED 03/08/20 12 1:18PM BY VCIK BUCKNER MA, GERAATI ON/ADDEN DUM [facility] [address] [facility] [address], [place], [address], [facility] 6 15:53:28 Screenin g for malignan t neoplasm of breast Completed 201112/09/2013 RECORDED 03/08/20 12 1:18PM BY VICK BUCKNER MA, ANNOTATI ON/ADDEN DUM [facility] 8 08:38:30 Malaise and fatigue 663874915 Completed 201112/09/2013 RECORDED 03/08/20 12 1:18PM BY VICK BUCKNER MA, ANNOTATI ON/ADDEN DUM [facility] [address], [place], [address], [facility] 6 15:53:28 Administ ration of bacteria l and viral vaccine Completed 200712/09/2013 RECORDED 07/10/19 08 2:32PM BY JESUS FRAZIER MD, OFFICE VISIT [facility]- [address] [facility] [address], [place], [address], [facility] 6 15:53:28 Influenz a vaccine needed 21540821414 06 Completed 201112/09/2013 RECORDED 03/08/20 12 2:02PM BY VICK BUCKNER MA, OFFICE VISIT [facility] [address] [place] [address] [address], [place], [address], [facility] 6 15:53:28 Vitamin D deficien cy 86871176 Completed 201112/09/2013 RECORDED 03/08/20 12 1:18PM BY VICK BUCKNER MA, ANNOTATI ON/ADDEN DUM [facility]- [address] [facility] [address], [place], [address], [facility] 6 15:53:28 Tick bite 83263940 Active [facility]- [address] [facility] [address], [place], [address], [facility] 6 15:53:28 Rebekah fontaine 71257696 Active [facility]- [address], [place], [address], [facility] 6 15:53:28 Acute sinusiti s 57305613 Active Woo Gonsalves MD [address] [facility] [address], [place], [address], [facility] 6 16:44:51 Problem Notes None recorded. Procedures Surgical History Date Name Laterality Status Provider Name and Address Organization Details Recorded Time Breast Surgery completed Kathyavicenta Bonillacait OLIVIA [facility] 07/21/2017 10:51:58 Hymenotomy completed Kathya Navarrete MA [facility] 07/21/2017 10:59:55 Imaging Results None recorded. Procedure Notes None recorded. Medical Equipment None Reported. Allergies Allergen ID Allergen Name Allergen Category Reaction Reaction Severity Criticality Documentation Date Start Date Code Code System Note Provider Name and Address Organization Details Recorded Time 37235 Substance with sulfonami de structure and antibacte rial mechanism of action (substanc e) medicatio n Not available Not available Not available 07/08/20142011 59960 8003 SNOMED REACT ION: BACTR IM, FACIA L RASH Yomaira shay, [facility] 5 11:00:53 Medications Name Sig Start Date [...] Updated DateTime 8 158.12 cm 20.4 kg/m2 64794.1 5 g 82 /min 100 % 100 % 99 [degF] 118 mm[Hg] 77 mm[Hg] Kathya Navarrete MA [facility] 8 10:59:26 Date Recorded Body height Body weight Body mass index (BMI) Body temperature Heart rate Oxygen saturation Oxygen saturation in Arterial blood by Pulse oximetry Systolic blood pressure Diastolic blood pressure Provider Name and Address Organization Details Last Updated DateTime 6 158.115 cm 60744.2 05129 g 19.8 kg/m2 99.1 [degF] 83 /min 97 % 97 % 120 mm[Hg] 68 mm[Hg] Kathya Navarrete MA [facility] 6 13:54:17 Date Recorded Body height Body weight Body mass index (BMI) Heart rate Oxygen saturation Oxygen saturation in Arterial blood by Pulse oximetry Body temperature Systolic blood pressure Diastolic blood pressure Provider Name and Address Organization Details Last Updated DateTime 6 158.115 cm 54412.4 64956 g 19.7 kg/m2 83 /min 98 % 98 % 97.6 [degF] 117 mm[Hg] 76 mm[Hg] Kathya Navarrete MA [facility] 6 15:23:44 Social History Question Answer Notes LastModified by Organizat ion Details LastModified Time Tobacco Smoking Status Former Smoker Kathya shay [facility] 05/07/2015 13:49:53 What Is Your Level Of [...] available 05/07/2015 Have You Served In The ? No Information not available 07/21/2017 What Was The Date Of Your Most Recent Tobacco Screening? 07/21/2017 Information not available 11/22/2018 How Many Children Do You Have? 2 Dtr Is [place] Is Raphael menon Information not available 05/07/2015 Do You Use [...] Malignant tumor of lung 85/dem entia/ alive 2018 mdalessandro Not available 07/21/2017 11:24:59 Father Hypercholest erolemia mdalessandro Not available 10/2015 14:53:06 Mother Diabetes mellitus /201 8 mdalessandro Not available 07/21/2017 11:23:54 Medical History Condition Response Allergies Y Gynecological History Statement/Question Response Date of Last Pap Smear Date of Last Colonoscopy Most Recent Mammogram Obstetrics History GPAL:G 0 P 0 0 0 0 Immunizations Vaccine Type Date Status Note Provider Nam e and Address Organization Details Recorded Time Tdap 8 completed Not Available [facility] 05/18/2019 02:21:47 Td (adult), 2 Lf tetanus toxoid, preservative free, adsorbed 0 completed Not Available [facility] 11/12/2013 14:12:40 Tdap 8 completed Not Available [facility] 11/12/2013 14:12:40 Past Encounters Encounter ID Performer Location Encounter Start Date Encounter Closed Date Diagnosis/Indication Diagnosis SNOMED-CT Code Diagnosis ICD10 Code Diagnosis Note [id number] autoEComm erce [address] [facility] [place] [address] 07/10/2007 00:00:00 [id number] autoEComm erce [address] [facility],[place] [address] [place] [address] 03/08/2012 00:00:00 [id number] autoEComm erce [address] [facility] [address] [place] [address] 03/08/2012 00:00:00 [id number] autoEComm erce [address] [facility] [address] [place] [address] 03/08/2012 00:00:00 [id number] Jesus glass Main Office [address] [facility] [address] [place] [address] 05/07/2015 13:39:28 05/07/2015 14:51:38 Adult health examination 179779233 Z00.00 Screening for malignant neoplasm of colon 179347759 Z12.11 Screening for malignant neoplasm of breast 887578228 Z12.39 Screening for malignant neoplasm of cervix 420248792 Z12.4 Menopausal problem 79388 000 N95.1 [id number] Woo Gonsalves MD Main Office [address] [facility] [address] [place] [address] 06/10/2015 15:08:58 06/10/2015 15:55:41 Acute sinusitis 22974572 J01.90 Persistent sinus symptoms and sinusitis. Start Levofloxac in 500 mg qd for 1 week. Medrol dose pack as dir. . Continue Nasocort AQ and nasal saline as well as MUcinex. If recurrent, call Dr. John ENT for f/u. [id number] Jesus glass Main Office [address] [facility] [address] [place] [address] 07/21/2017 10:39:58 07/21/2017 11:42:59 Adult health examination 155618605 Z00.00 Screening for malignant neoplasm of breast 395662454 Z12.39 Screening for malignant neoplasm of colon 413038128 Z12.11 Administra tion of viral vaccine 98344856 Z23 Health Concerns Section Related Observation LastModified by Organization Detai ls LastModified Time None Recorded Concern Status LastModified by Organization Details LastModified Time None Recorded Advance Directives Directive None Recorded Payers Encounter Date Sequence Insurance Name Policy Number Policy Shoemaker Covered Member ID Shoemaker Member ID Guarantor Name 05/07/2015 1 [facility]) [id number] 30 Michelle Carrillo [id number] Michelle Carrillo 06/10/2015 1 [facility]) [id number] 30 Michelle Carrillo [id number] Michelle Carrillo 07/21/2017 1 [facility]) [id number] 30 Michelle Carrillo [id number] Michelle Carrillo Notes Date Note Type Note [...] has considered it in past. Jesus shay MA [facility] 05/07/2015 14:53:21 06/10/2015 text/html 60 year old fema le c/o 3 1/2 week onset of sinus congestion which is getting worse. Pt. went to [facility] twice. Treated with Z-pack and inhaler which [...] they are thick green. Woo Gonsalves MD [address] [address], [place], [address], [facility] 06/10/2015 16:44:53 OBGyn Episode No OBEpisode recorded.
--- OUTSIDE RECORDS SUMMARY | 2024-08-12 16:00 | XMS_ITS | Data Portability ---
Author Organization [facility], [address] Address [address] [place] [address] Assessment No assessment recorded. Plan of Treatment Reminders Order Date Submit Date Provider Last Modified By Organization Details Last Modified Time Details Appointments None recorded. Lab SARS CoV 2 (COVID-19) Ag, QL, IA, upper respiratory specimen 2023 024 [email or web address] [address] [facility] [address], [address] [place], [address], 19:26:41 Referral None recorded. Procedures None recorded. Surgeries None recorded. Imaging None recorded. Medication Orders prednisone 20 mg tablet 2023 024 [facility] #0838, [address] [place], [address], 19:26:42 Augmentin 875 mg-125 mg tablet 2023 024 [facility] #0838, [address] [place], [address], 19:26:43 Patient TargetsNo targets recorded. Patient Instructions Encounter Date Encounter Id Patient Instructions Last Modified By Organization Details Last Modified Time 11/28/2023 [id number] Follow-up with your doctor if no improvement in 1 week. Seek Emergency Medical evaluation for any worsening symptoms. [email or web address] Not available 11/28/2023 19:26:37 Reason for Referral None Reported. Results Created Date Observation Date Name Description Value Unit Range Abnormal Flag Note LastModifiedBy Organization Detail LastModifiedTime 11/28/19 24 11/28/2023 SARS CoV 2 (COVI D-19) Ag, QL, IA, upper respi rator y speci men Unknown Analyte negati ve Not Available [address] [place], [address], 11/28/2023 19:01:45 Result Notes None recorded. Problems Name Problem SNOMED Code Status Onset Date Resolution Date Notes Provider Name and Address Organization Details Recorded Time Asthma 282964666 Active DIONY MINEO null, [place] - [facility] 4 19:00:05 Sinusitis 39927408 Active DIONY MINEO null, [place] - [facility] 19:00:15 Problem Notes None recorded. Medical Equipment None Reported. Allergies Allergen ID Allergen Name Allergen Category Reaction Reaction Severity Criticality Documentation Date Start Date Code Code System Note Provider Name and Address Organization Details Recorded Time 297287 Bactrim medicatio n Not available Not available Not available 11/28/2023 11194 9 RxNorm DIONY MINEO null, PA - [...] Not Available Vitals Date Recorded Body height Body mass index (BMI) Body weight Oxygen saturation Oxygen saturation in Arterial blood by Pulse oximetry Heart rate Respiratory rate Body temperature Systolic blood pressure Diastolic blood pressure Provider Name and Address Organization Details Last Updated DateTime 4 157.48 cm 19 kg/m2 38209.6 1 g 98 % 98 % 88 /min 18 /min 98.2 [degF] 118 mm[Hg] 75 mm[Hg] DIONY RUTHERFORD PA [facility] [employer] 19:01:29 Social History Question Answer Notes LastModified [...] SNOMED-CT Code Diagnosis ICD10 Code Diagnosis Note [id number] [address] [place] [address] 12/15/2019 15:30:24 12/15/2019 15:59:14 [id number] [address] [place] [address] 07/05/2018 14:08:24 07/05/2018 15:02:09 [id number] [address] [place] [address] 07/16/2018 18:17:14 07/16/2018 19:10:17 [id number] [address] [place] [address] 02/09/2017 18:53:59 02/09/2017 19:35:47 [id number] [address] [place] [address] 05/18/2015 11:53:52 05/18/2015 12:28:11 [id number] [address] [place] [address] 05/25/2020 18:50:55 05/25/2020 19:29:04 [id number] [address] [place] [address] 11/13/2016 17:56:36 11/13/2016 18:27:40 [id number] [address] [place] [address] 05/21/2015 10:43:28 05/21/2015 11:47:29 [id number] [address] [place] [address] 05/19/2019 15:47:25 05/19/2019 16:02:47 [id number] [address] [place] [address] 08/02/2016 19:01:00 08/02/2016 19:56:35 [id number] [address] [place] [address] 11/15/2017 19:27:57 11/15/2017 19:39:43 [id number] ALLEN MILLS MD [address] [address] 11/28/2023 18:46:44 11/28/2023 19:27:50 Dry cough 34766227 R05.9 CoughBlack Elderberry Syrup:1-2 tsp 2-3 times a day for 5 days as needed for coughing.S ambucol Black Elderberry Original Syrup (available at [employer] )Jannet Herbs Black Elderberry Syrup, 5.4-Ounce Bottle (available at [employer] or [employer]) Use a cool mist humidifier in the room that you sleep to add moisture to the air, which should soothe the airways and help loosen any mucus that may be present. Acute maxi llary sinusitis 72229989 J01.00 Health Concerns Section Related Observation LastModified by Organization Detai ls LastModified Time None Recorded Concern Status LastModified by Organization Details LastModified Time None Recorded Advance Directives Directive None Recorded Payers Encounter Date Sequence Insurance Name Policy Number Policy Shoemaker Covered Member ID Shoemaker Member ID Guarantor Name 05/19/2019 1 [place] [facility] Michelle Anders Gerardo [id number] [facility] 12/15/2019 1 [place] [facility] Michelle Anders Gerardo [id number] [facility] 12/15/2019 2 COMMUNITY HEALTHEMNITY PLAN - UNICARE [id number] Juan Jose Carrillo [id number] Michelle [facility] 05/25/2020 1 [place] [facility] Michelle Anders Gerardo [id number] [facility] 05/25/2020 2 COMMONWE[employer] INDEMNITY PLAN - UNICARE [id number] 4 Juan Jose Carrillo [id number] Michelle [facility] 11/28/2023 1 [place] [facility] Michelle Chago Carrillo [id number] [facility] 11/28/2023 2 [facility] UNICARE [id number] Juan Jose Carrillo [id number] Michelle Carrillo Notes Date Note Type Note Provider Name and Address Organization Details Recorded Time 11/28/2023 text/html 6 days of sinus pressure. Hx of sinus infections. Last one 3 months ago. Hx of Asthma. Uses her meds regularly and is not having Asthma symptoms now. ALLEN MILLS MD [address] [facility] [place], [address], [place] - [facility] 11/28/2023 19:27:26 OBGyn Episode No OBEpisode recorded.
--- OUTSIDE RECORDS SUMMARY | 2024-08-12 16:01 | XMS_ITS ---
Author Organization [facility] Address [address] [place] [address] Care Team Providers Care Director Security Risk Management Name Role Phone Yazmin BRANHAM, Adrian Primary Care Provider Unav ailable Toro Hartman Unavailable [phone] REASON FOR VISIT Cancel Encounters Encounter Location Date Provider Diagnosis [facility] [address] [place] [address] 10/10/2023 Toro Hartman Plan Of Treatment No Information Progress Notes * Michelle CARRILLO ADOB:1955 (68 yo F)Acc No.[id number]:10/10/2023 Patient:?Michelle Carrillo :1955???Age:68 Y???Sex:Female Address:[address] [place] [address], [place], [address] * true * Date:? Generated for Maria Doloresi twyla/Mary/eTransmitting on:?08/12/2024 04:00 PM EDT
== END 2024-08-12 14:32 | disposition home or self-care (01) ==
LOC: HO.HMCFM 13:48
PROVIDERS: PCP Internal Medicine; Visit Provider Internal Medicine
DX: Z00.00 Encounter for general adult medical examination without abnormal findings (principal); T78.40XS Allergy, unspecified, sequela; J45.51 Severe persistent asthma with (acute) exacerbation

== ENCOUNTER → 2024-08-12 13:48 | Outpatient (BNVA) | payer MEDICARE, OTHER, SELFPAY | PROVIDERS: PCP Internal Medicine; Visit Provider Internal Medicine ==

== ENCOUNTER 2024-08-29 09:16 | Outpatient (AMB) | payer MEDICARE, OTHER, SELFPAY ==
[2024-08-29 09:17] VITALS: BP 110/64; PULSE 97; O2SAT 98; BMI 19.8
--- NOTE | 2024-08-29 09:17 | A.OFFVIS_ITS ---
Vital Signs 08/29/24 09:17 Height 5 ft 2 in Weight 108 lb 0.424 oz BMI 19.8 BP 110/64 Blood Pressure Location Lt brachial Position Sitting Pulse 97 Pulse Source Pulse Oximeter Pulse Oximetry (%) 98 Oxygen Delivery Method Room Air Intake Visit Reasons: coughing/wheezing Bag Sorter Required: No Accompanied by: Self / Same As Patient Allergies sulfamethoxazole [From Bactrim] Allergy (Unknown, Verified 08/29/24 09:20) Unknown trimethoprim [From Bactrim] Allergy (Unknown, Verified 08/29/24 09:20) Unknown Bactrum Allergy (Severe, Uncoded 02/14/24 13:45) Rash Seasonal Allergy (Severe, Uncoded 02/14/24 13:45) Rash HPI Comments Details: The patient is a 69-year-old woman who was been very healthy until recently when she was diagnosed with COVID-19 infection approximately 8 weeks ago. 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 She did complaint of some mild shortness of breath while she was sick. However, her symptoms were minimal and she was able to continue with her activities of daily living. Once she completed her course 18 she was able to go back to work and also back to the gym as she spends a lot of time the gym. However, several weeks ago she noticed that she was having worsening cough and shortness of breath. She went to an urgent care there she was sent to [place] because of concerns of blood clots. She did have additional labs demonstrating a negative D-dimer. Her lower extremity Dopplers were negative for any clots. She had an x-ray done demonstrating some minimal atelectasis in some minimal airspace disease. The patient was treated with a course of azithromycin x2 and then was given a course of Augmentin. More recently she went back to urgent care because of ongoing worsening cough productive sputum with greenish color. She was evaluated on exam does concerns of bronchopneumonia. The patient was given another course of prednisone in addition to that she was given a course of levofloxacin that she will start if she was no better. At this point the patient is taking for total 40 mg of prednisone and has not started antibiotics as of yet. She was noted to be significantly tachycardic in the office so therefore we had to go for 6 minutes walk test. Heart rate did increase to 129. The patient was short of breath but not hypoxic. She maintain a pulse ox of 96%. At this point will treat the patient for bronchitis specially since her white count was elevated had a left shift when she went to [facility] for blood work. Based on the postviral super infections to because content this will be Staph aureus and also Streptococcus. 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 Doxycycline would be a good option for her to treat these organisms at this time. If the patient is not better in the next few days and she is going to undergo additional blood work. 05/24/2021 the patient is here for a pulmonary follow-up visit. Since we last spoke again she became sick with a sinus congestion and sinus pressure. she did follow-up with an news photographer. She was placed on Augmentin. While having her symptoms she started developing worsening chest tightness and also started prednisone taper from prednisone she had home already. On prednisone the patient feels a lot better. We again reviewed her blood work demonstrating significant elevation of her igE. therefore, she is going to undergo formal allergy testing and also additional laboratory data and to assess her immune system. Currently her respiratory status is stable while on the prednisone. We did talk about her ongoing prednisone use that is not healthy. Based on her significant allergies and elevations in her IgE she will be a good candidate for biologic therapy. However, now that she is working closely with Allergy or allow her to be further assessed and evaluated. in the meantime she continues with her respiratory medications with good effect. 07/01/2021 the patient is here for a pulmonary follow-up visit. She is having hard time with her sinus congestion and chest tightness again. She feels significantly congested and has a hard time breathing. She is also having increasing coughing. She did have additional blood work done by Allergy. Her IgE levels even higher now about 2500. Her eosinophils are within normal limits. This consistent with allergic asthma and allergic rhinosinusitis. The patient has had allergy testing with significant allergies to mold in addition to environmental allergens. She does not have any pets at home at this time. He denies any mold in her house at this time. Still her respiratory symptoms have been getting worse. She is scheduled to undergo a CT scan of the sinuses from her allergy evaluation. No evidence of any nasal polyps on my examination. She continues to struggle and will require additional prednisone today. Therefore I will start the process to get her on Xolair. She can follow up in see if she will get allergy shots like she did in the past. Unfortunately after 4 years of allergy shots he did not have any relief so it is something that she needs to consider. She also has using the Neti bottle. However, she is using well water. Explained to her how seriously dangerous status. She needs to get distilled water only for her dating bottle. She is going to continue with respiratory therapy. 09/14/2021 the patient is here for pulmonary follow-up visit. Since we last spoke she did start the Dupixent. She did already receive about a month worth of medication. Unfortunate she did developed the flu and subsequently developed a asthma exacerbation along with sinusitis. Therefore she was placed again on prednisone and also antibiotics. She is currently on 20 mg of prednisone. She was evaluated by her groover operator and she agreed on the start of the Dupixent which I believe will be effective for her once she improves from her sinusitis. She continues on her respiratory therapy including Symbicort. She has not had to use her rescue inhaler as often now. Initially she did go to the ER because of chest tightness and wheezing when she was diagnosed with flu A. 12/29/2021 the patient is here for a pulmonary follow-up visit. Since we last spoke the patient started developing sinusitis again. She did follow-up with her news photographer to start her on a course of antibiotics and also on Medrol Henry. She really was not feeling any better. She does have her ENT appointment coming up in January. In the meantime will start her on Neti bottle with budesonide to help her with her significant inflammation. Subsequently after that she started working on the yd and she developed a rash primarily of her upper extremities and also has some areas of rash in her abdomen and inguinal area. Some of the rash especially in her hands and forearms almost have a nodular component and also like vesicular in nature. Although the nap pustules and does not quite look like monkey pox. Denies any fevers or chills. She will continue monitoring closely for any evidence of any pustules. The rash is not painful either. It was itchy but is getting a little better. Since developing the rash she went to urgent care and she was prescribed higher dose of prednisone. On in the meantime she continues on Dupixent Dupixent has been very helpful in helping her with her significant eczema and also asthma symptoms. However, has not completely resolved her issues. She will follow-up with ENT to see if they can help with her significant sinusitis and ultimately if the patient is not better will consider different biologic such as Tezspire. also to note since we last spoke the patient developed acute appendicitis and she did have surgery a [facility]. She healed very well and doing well after that surgery. 03/02/2022 the patient is here again for sick visit. Recently she was evaluated by her news photographer to start her again on prednisone for sinusitis. She was given a short course because the patient is concerned about adverse side effects. Although initially she felt better symptoms are now worse again she has severe nasal congestion difficulty breathing postnasal drip cough. The Dupixent initially was effective for her but seems to be not as effective anymore for her sinuses. Her lungs continue to respond positively to it. My suspicion is that she needs to undergo a surgical intervention in order to get the most effect from the Dupixent. The patient does have significant nasal congestion at this time with inflammation and turbinate and also exudate if discharged. Unfortunately because of her nasal congestion the patient restarted the Afrin. I did recommend that she stop using the Afrin. She continues uses Sudafed and continues to use her nasal sprays Neti bottle with budesonide. The patient is maximized on her respiratory therapy and also nasal therapy and allergy therapy. I believe that the only reasonable option right now is a surgical intervention. Will reach out to her ENTs office to see if we can have her be evaluated potential surgery soon. In the meantime I will give another course of doxycycline and give her a longer course of prednisone at a lower dose. 05/18/2022 the patient is here for a pulmonary follow-up visit. The patient is feeling a lot better. Her sinuses are feeling significantly improved. She is finally responding well to the Dupixent. She continues use the Neti bottle with budesonide and also using her other nasal therapy. Her Symbicort she has not required. She has not required any prednisone since the last time she was provided with. She did require a short course of antibiotics for sinusitis several months ago but otherwise she has been good. The patient has been avoiding Afrin which is important as well. She is going to continue Dupixent at this time. The patient overall is doing well so therefore will continue to monitor closely on her current therapy. No imaging or laboratory studies at this time. 03/10/2023 the patient is here for a sick visit. Apparently a month ago she tr aveled to [facility]. There she was exposed to sick contacts and developed a respiratory illness. Subsequently after that she started having worsening chest tightness and wheezing. She has also had worsening cough moderate severity sometimes productive. She did get a course of antibiotics with no significant improvement. The patient has been using her rescue inhaler. She does have a nebulizer which she has not been using it. She did test negative for COVID. I did tell the patient's likely RSV. She did have a chest x-ray which I personally reviewed demonstrating some slight micro nodular densities on the right suggesting some degree of bronchiolitis that will go along with RSV. The patient is willing to go on a course of prednisone. She is also not vaccinated for strep pneumo so therefore will give her a course of doxycycline to treat for both staph and strep postviral bacterial infections. The patient will start using her nebulizer. I will make sure to send medications to the pharmacy. If the patient is no better she will call us for further evaluation. 08/29/2024 the patient is here for a pulmonary follow-up visit. Overall she is doing very well. The Dupixent injections have been very affecting beneficial for her. Prior to the Dupixent she was requiring prednisone antibiotics almost on a monthly basis. Now she seldom uses any prednisone or antibiotics. Nasal congestion is significantly better. She has not had to follow-up with ENT. The patient's respiratory status has been stable. She does have her inhalers. She also has a nebulizer. She continues to exercise regularly as she goes to the gym on a regular basis. She denies any respiratory limitations at this time she is very happy with her response to therapy. She will follow-up in a year's time will make sure the for her to continue Dupixent. No evidence of any adverse reaction to Dupixent at this time. [facility] Medical History Genital herpes Eczema Sinusitis Asthma Bronchitis, mucopurulent recurrent Allergic urticaria Reactive airway disease Murmur Tachycardia Post-COVID syndrome Bronchitis COVID-19 Surgical History History of appendectomy Family History Mother Diabetes Lymphoma Father Lung cancer Alzheimer disease Maternal Grandmother Congestive heart failure Maternal Grandfather Diabetes Social History Household Members: None Housing: House Alcohol intake: never Patient Tobacco Use Status: Former Tobacco user Tobacco use type: Cigarette Years Smoked: 20+ years e-Cigarette/Vaping Use: Never Used Current occupational status: employed 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 Current occupational exposures/hazards: No Cognitive needs: No Hearing needs: No Vision needs: Yes Review of Systems Const Denies chills, Denies fatigue, Denies fever(s), Denies weight gain and Denies weight loss ENT Denies dizziness, Denies lip swelling, Denies throat swelling and Denies tongue swelling Card Denies chest pain, Denies leg edema, Denies lightheadedness, Denies palpitations, Denies dyspnea on exertion, Denies orthopnea and Denies other Resp Denies cough, Denies dyspnea on exertion and Reports wheezing GI Denies hematochezia and Denies change in stool character Musc Denies abnormal gait, Denies muscle weakness, Denies numbness, Denies radiating pain into limb and Denies tingling Skin/Breast Reports rash Neuro Denies abnormal gait, Denies dizziness, Denies numbness and Denies tingling Psych Denies no additional complaints Endo Denies fatigue and Denies palpitations Vincent/Lymph Denies easy bleeding and Denies lymphadenopathy Aller/Immun Denies urticaria, Denies lip swelling, Reports seasonal rhinorrhea, Denies throat swelling, Denies tongue swelling and Reports wheezing Physical Exam Vital Signs: Last Vital Signs Pulse 97 08/29/24 09:17 BP 110/64 08/29/24 09:17 Pulse Ox 98 08/29/24 09:17 Oxygen Delivery Method Room Air 08/29/24 09:17 BMI result Body Mass Index 19.8 Const General: alert HEENT General nose exam: Abnormal mucous membranes and turbinates present erythematous on the left Throat: Yes postnasal drainage and Yes cobblestoning Neck Neck: Yes normal visual inspection, Yes full ROM and Yes no lymphadenopathy Chest Chest palpation & inspection: normal inspection of the chest Resp Effort & Inspection: normal respiratory effort and prolonged expiratory phase Auscultation: clear to auscultation bilaterally, no rhonchi and no wheezes Cardio Rate: regular rate and tachycardic Rhythm: regular rhythm Heart sounds: S1 normal heart sound present, S2 normal heart sound present and Murmur heart sound present systolic II/ and at the right sternal border GI Palpation (GI): Soft to palpation and nontender Auscultation: normal bowel sounds Skin Rashes: rashes noted ( Primarily on both hands and forearms appears to be erythematous/popules) Assessment & Plan Assessment & Plan (1) Asthma: Code(s): J45.909 - Unspecified asthma, uncomplicated Category: Medical Qualifiers: Asthma complication type: uncomplicated Asthma persistence: persistent Asthma severity: severe Qualified Code(s): J45.50 - Severe persistent asthma, uncomplicated (2) Murmur: Comment: ECHO was WNL, trivial TR Code(s): R01.1 - Cardiac murmur, unspecified Category: Medical (3) Eczema: Code(s): L30.9 - Dermatitis, unspecified Category: Medical Qualifiers: Eczema type: flexural Qualified Code(s): L20.82 - Flexural eczema Plan Continue Symbicort twice a day as needed short-acting beta agonist as needed Nebulize therapy fluticasone nasal spray continue Dupixent F/U with Allergy F/U 12 months Medications: Changed From dupilumab (Dupixent) 48,000 mg (320 mL) subcut Q2W 4 mL 12RF To dupilumab (Dupixent) 300 mg (2 mL) subcut Q2W 4 mL 12RF Coding Level of Care Code Est Pt Level 4 (55847) Complex EM visit Add On G2211 Diagnoses Severe persistent asthma without complication J45.50 Asthma complication type: uncomplicated Asthma persistence: persistent Asthma severity: severe Murmur R01.1 Flexural eczema L20.82 Eczema type: flexural Time Spent (min) 16
--- OUTSIDE RECORDS SUMMARY | 2024-08-29 10:03 | XMS_ITS | Clinical Summary ---
Author Organization [facility] Address [address] [place] [phone] Phone Care Team Providers Care Programs Director Name Role Phone Physician, No Pcp Primary [...] Information Patient not taking.Reported on 07/11/2024 metroNIDAZOLE (METROGEL) 0.75 % (37.5mg/5 gram) vaginal [...] Description 07/26/2024 Telephone Obstetrics and Gynecology - [address] [phone] Jocelynn Haddad CNM Vaginal/vulvar Complaint 07/19/2024 Telephone Obstetrics and Gynecology - [address] [phone] Jocelynn Haddad CNM Vaginal Discharge 07/11/2024 2:30 PM EDT Office Visit Obstetrics and Gynecology - [address] [phone] Jocelynn Haddad CNM Bacterial vaginitis (Primary Dx); Screen for STD (sexually transmitted disease); Vaginal discharge from Last 3 Months Surgical History Surgery Date Site/Laterality Comments APPENDECTOMY PROCEDURE: [place] APPENDECTOMY WISDOM TOOTH EXTRACTION N/A PROCEDURE: HISTORICAL [...] EDT Office Visit Obstetrics & Gynecology - [address] [phone] Trinh Garcia, DORYS [address] [place] [address] Health Maintenance Due Date Last Done Comments [...] EDT Screen for STD (sexually transmitted disease) HEPATITIS C SCREENING Routine 05/05/2023 from Last 3 Months or Most Recently Relevant to Health Maintenance Results * Trichomonas vaginalis antigen (07/11/2024 3:13 PM EDT) Pathologist [facility] Trichomonas vaginalis Negative Negative 07/11/2024 7:58 PM EDT [facility] Swab Vaginal structure / Unknown Non-blood Collection / Unknown 07/11/2024 3:13 PM EDT 07/11/2024 3:13 PM EDT us Jocelynn [facility] MICROBIOLOGY - GENERAL ORD ERABLES Final Result Performing Organization Address City/[facility]/ZIP Co de Phone Number [facility] [address] [place] [address], [place] [phone] * Chlamydia trachomatis and Neisseria gonorrhoeae molecular study (07/11/2024 3:13 PM EDT) [facility] Neisseria gonorrhoeae PCR Negative Negative LAB MOLECULAR DIAGNOSTICS METHOD 07/12/2024 3:38 PM EDT [facility] Chlamydia trachomatis PCR Negative Negative LAB MOLECULAR DIAGNOSTICS METHOD 07/12/2024 3:38 PM EDT [facility] Swab Cervix uteri structure / Unknown Non-blood Collection / Unknown 07/11/2024 3:13 PM EDT 07/11/2024 3:13 PM EDT us Jocelynn [facility] MICROBIOLOGY - GENERAL ORD ERABLES Final Result Performing Organization Address City/[facility]/ZIP Co de Phone Number [facility] [address] [place] [address], [place] [phone] * (ABNORMAL) POC Wet Mount (07/11/2024 3:13 PM EDT) Trichomonas, Wet Prep POC Absent Absent Yeast, Wet Prep POC Negative Not Applicable, Negative Clue Cells, Wet Prep POC Positive(A) Not Applicable, Negative Whiff Test, Wet Prep POC Positive(A) Not Done, Negative PH FL Type POC 5.0 Vaginal Fluid Vaginal structure / Unknown 07/11/2024 3:13 PM EDT Jocelynn Haddad CNMary POINT OF CARE TEST ENTER/EDIT ORDERABLES Final Result * Hepatitis C Screening (05/05/2023) Hepatitis C Screening abstracted Historical Provider HEALTH MAINTENANCE Final Result from Last 3 Months or Most Recently Relevant to Health Maintenance Insurance MEDICARE [facility] Care Teams Programs Director Relationship Specialty Start Date End Date Physician, No Pcp PCP - General 05/17/24
--- OUTSIDE RECORDS SUMMARY | 2024-08-29 10:03 | XMS_ITS | Data Portability ---
Author Organization [facility], [address] Address [address] [place] [address] Assessment No assessment recorded. Plan of Treatment Reminders Order Date Submit Date Provider Last Modified By Organization Details Last Modified Time Details Appointments None recorded. Lab SARS CoV 2 (COVID-19) Ag, QL, IA, upper respiratory specimen 2023 024 [email or web address] [address] [facility] [address], [address] [place], [address], 19:26:41 Referral None recorded. Procedures None recorded. Surgeries None recorded. Imaging None recorded. Medication Orders prednisone 20 mg tablet 2023 024 [facility]acy #[id number], [address] [place], [address], 19:26:42 Augmentin 875 mg-125 mg tablet 2023 024 [facility] #0838, [address] [place], [address], 19:26:43 Patient TargetsNo targets recorded. Patient Instructions Encounter Date Encounter Id Patient Instructions Last Modified By Organization Details Last Modified Time 11/28/2023 [id number] Follow-up with your doctor if no improvement in 1 week. Seek Emergency Medical evaluation for any worsening symptoms. [email or web address] Not available 11/28/2023 19:26:37 Reason for Referral None Reported. Results Created Date Observation Date Name Description Value Unit Range Abnormal Flag Note LastModifiedBy Organization Detail LastModifiedTime 11/28/19 24 11/28/2023 SARS CoV 2 (COVI D-19) Ag, QL, IA, upper respi rator y speci men Unknown Analyte negati ve Not Available [address] [place], [address], 11/28/2023 19:01:45 Result Notes None recorded. Problems Name Problem SNOMED Code Status Onset Date Resolution Date Notes Provider Name and Address Organization Details Recorded Time Asthma 246475978 Active DIONY MINEO null, PA - [facility] 4 19:00:05 Sinusitis 57561225 Active DIONY MINEO null, PA - [facility] 19:00:15 Problem Notes None recorded. Medical Equipment None Reported. Allergies Allergen ID Allergen Name Allergen Category Reaction Reaction Severity Criticality Documentation Date Start Date Code Code System Note Provider Name and Address Organization Details Recorded Time 145567 Bactrim medicatio n Not available Not available Not available 11/28/2023 20464 9 RxNorm DIONY MINEO null, PA - [...] Updated DateTime 4 157.48 cm 19 kg/m2 62841.6 1 g 98 % 98 % 88 /min 18 /min 98.2 [degF] 118 mm[Hg] 75 mm[Hg] DIONY RUTHERFORD PA [employer] [facility] 19:01:29 Social History Question Answer Notes LastModified [...] SNOMED-CT Code Diagnosis ICD10 Code Diagnosis Note [id number] [address] [place] [address]363-337 7 12/15/2019 15:30:24 12/15/2019 15:59:14 [id number] [address] [place] [address] 64754-605 7 07/05/2018 14:08:24 07/05/2018 15:02:09 [id number] [address] [place] [address] 11235-115 7 07/16/2018 18:17:14 07/16/2018 19:10:17 [id number] [address] [place] [address] 14106-762 7 02/09/2017 18:53:59 02/09/2017 19:35:47 [id number] [address] [facility] [address] [place] [address] 85409-176 7 05/18/2015 11:53:52 05/18/2015 12:28:11 [id number] [address] [facility] [address] [place] [address] 53008-078 7 05/25/2020 18:50:55 05/25/2020 19:29:04 [id number] [address] [facility] [address] [place] [address] 31901-961 7 11/13/2016 17:56:36 11/13/2016 18:27:40 [id number] [address] [facility] [address] [place] [address] 00688-659 7 05/21/2015 10:43:28 05/21/2015 11:47:29 [id number] [address] [facility] [address] [place] [address] 67244-163 7 05/19/2019 15:47:25 05/19/2019 16:02:47 [id number] [facility] [address] [place] [address] 55634-808 7 08/02/2016 19:01:00 08/02/2016 19:56:35 [id number] [facility] [address] [place] [address] 96765-254 7 11/15/2017 19:27:57 11/15/2017 19:39:43 [id number] ALLEN MILLS MD [address] [place] [address]00-421 7 11/28/2023 18:46:44 11/28/2023 19:27:50 Dry cough 15795238 R05.9 CoughBlack Elderberry Syrup:1-2 tsp 2-3 times a day for 5 days as needed for coughing.S ambucol Black Elderberry Original Syrup (available at [employer] )Jannet Herbs Black Elderberry Syrup, 5.4-Ounce Bottle (available at [employer]) Use a cool mist humidifier in the room that you sleep to add moisture to the air, which should soothe the airways and help loosen any mucus that may be present. Acute maxi llary sinusitis 43422818 J01.00 Health Concerns Section Related Observation LastModified by Organization Detai ls LastModified Time None Recorded Concern Status LastModified by Organization Details LastModified Time None Recorded Advance Directives Directive None Recorded Payers Encounter Date Sequence Insurance Name Policy Number Policy Shoemaker Covered Member ID Shoemaker Member ID Guarantor Name 05/19/2019 1 [place]: [facility] Michelle Chago Carrillo [id number] Michelle Carrillo 12/15/2019 1 [place] [facility] Michelle Chago Carrillo [id number] Michelle [facility] 12/15/2019 2 [facility] IN[facility] - UNICARE [id number] Juan Jose Carrillo [id number] Michelle Carrillo 05/25/2020 1 [place] [facility] Michelle Carrillo [id number] Michelle Carrillo 05/25/2020 2 [facility] IN[facility]MNITY [facility] - UNICARE [id number] Juan Jose Carrillo [id number] Michelle Carrillo 11/28/2023 1 [place] [employer] Michelle Carrillo [id number] Michelle Carrillo 11/28/2023 2 [facility] [id number] Juan Jose Carrillo [id number] Michelle Carrillo Notes Date Note Type Note Provider Name and Address Organization Details Recorded Time 11/28/2023 text/html 6 days of sinus pressure. Hx of sinus infections. Last one 3 months ago. Hx of Asthma. Uses her meds regularly and is not having Asthma symptoms now. ALLEN MILLS MD [address] [place], [address], [place] - [facility] 11/28/2023 19:27:26 OBGyn Episode No OBEpisode recorded.
--- OUTSIDE RECORDS SUMMARY | 2024-08-29 10:03 | XMS_ITS | Data Portability ---
Author Organization [facility], Main Office Address [address] [place] [address] Care Team Providers Care Residential Sales Representative Name Role Phone ALEXA HEIN OTHER Assessment [...] 8 11:42:[address] referral 2015 016 [facility], [address] [place] [address], [place], [address], 6 14:42:14 Procedures colonoscop y screening (PROC) [...] levofloxac in 500 mg tablet 2015 016 [facility]Pharmacy #0838, [address] [place], [address], 8 08:37:53 Medrol (Henry) 4 mg tablets in a dose pack 2015 016 [facility] #0838, [address] [place], [address], 8 08:38:01 Patient TargetsNo targets recorded. Patient Instructions Encounter Date Encounter Id Patient Instructions Last Modified By Organization Details Last Modified Time 05/07/2015 [id number] Screening Mammogram [email or web address] Not available 05/07/2015 15:21:42 Colon Cancer Screening VMA [email or web address] Not available 05/07/2015 14:47:03 Cervical Cancer Screening Not available 05/07/2015 15:21:42 Medications were reviewed [...] ? mdalessandro Not available 05/07/2015 14:34:22 06/10/2015 [id number] I have reviewed the note and agree with the assessment and plan of care. dontrell Not available 06/10/2015 16:44:52 07/21/2017 [id number] learning about colon cancer mdalessandro Not available 07/21/2017 11:25:01 Reason for Referral Pillowcase Turner Referral for Sc reening for malignant neoplasm of cervix Annual Exam Referring Physician: Jesus Thurman, Internal Medicine, Encounter Date: 05/07/2015 Door Technician Referral for Screening for malignant neoplasm of [...] Go To The Location Of Their Choice, [facility] 07/21/2017 20:49:33 07/22/19 18 07/21/2017 lipid panel , serum triglyceride 86 mg/dL (<150) Not Available [facility] (Centralized Electronic Ordering - All Locations) Patient Can Go To The Location Of Their Choice, [id number] 07/21/2017 20:49:33 07/22/19 18 07/21/2017 lipid panel , serum HDL chol 70 mg/dL (>39) Not Available [facility] (Centralized Electronic Ordering - All Locations) Patient Can Go To The Location Of Their Choice, [id number] 07/21/2017 20:49:33 07/22/19 18 07/21/2017 lipid panel , serum LDL cholesterol, calculated 155 mg/dL (0-130 ) high Not Available [facility] (Centralized Electronic Ordering - All Locations) Patient Can Go To The Location Of Their Choice, [id number] 07/21/2017 20:49:33 07/22/19 18 07/21/2017 lipid panel , serum non HDL cholesterol (calc) 172 mg/dL (<160) high Not Available [facility] (Centralized Electronic Ordering - All Locations) Patient Can Go To The Location Of Their Choice, [facility] 07/21/2017 20:49:33 Result Notes None recorded. Problems Name Problem SNOMED Code Status Onset Date Resolution Date Notes Provider Name and Address Organization Details Recorded Time Allergic rhinitis 04193636 Active 2011 CORWIN Norman MA [facility] 8 08:38:48 Patient status finding 471237779 Completed 201107/21/2017 RECORDED 03/08/20 12 1:53PM BY VICK BUCKNER MA, OFFICE VISIT CORWIN Norman MA [facility] 8 08:38:06 Screenin g for malignan t neoplasm of breast Completed 201111/19/2013 RECORDED 03/08/20 12 1:18PM BY VICK BUCKNER MA, ANNOTATI ON/ADDEN DUM Kathya shay, [facility] 8 08:38:30 Screenin g for malignan t neoplasm of breast Completed 201207/21/2017 RECORDED 02/28/20 13 12:48PM BY MICKIE JACKSON MA, PHONE ENCOUNTE R Kathya Navarrete MA null, [facility] 8 08:38:30 Screenin g for malignan t neoplasm of cervix Completed 201207/21/2017 RECORDED 02/28/20 13 12:48PM BY MICKIE JACKSON MA, PHONE ENCOUNTE R Kathya Navarrete MA null, [facility] 8 08:38:15 Chronic sinusiti s 31486093 Active 2011 Kathya shay, [facility] 8 08:38:38 Adult health examinat ion Completed 201107/21/2017 RECORDED 03/08/20 12 1:54PM BY VICK BUCKNER MA, OFFICE VISIT Kathya shay, [facility] 8 08:38:33 Hyperlip idemia 37704459 Active 2011 Kathya shay, [facility] 8 08:38:42 Malaise and fatigue 895595845 Completed 201111/19/2013 RECORDED 03/08/20 12 1:18PM BY VICK BUCKNER MA, ANNOTATI ON/ADDEN DUM Alexa eHin PA-C [address] [facility] [address], [facility] [place], [address] , [facility] 6 15:53:28 Menopaus al symptom 52344119 Active 2011 Kathya shay, [facility] 8 08:38:27 Administ ration of bacteria l and viral vaccine Completed 200711/19/2013 RECORDED 07/10/19 08 2:32PM BY JESUS FRAZIER MD, OFFICE VISIT [facility] [address] [facility] [address], [place], [address], [facility] 6 15:53:28 Influenz a vaccine needed 44209501554 06 Completed 201111/19/2013 RECORDED 03/08/20 12 2:02PM BY VICK BUCKNER MA, OFFICE VISIT [facility] [address] [facility] [address], [place], [address], [facility] 6 15:53:28 Adult health examinat ion Completed 201111/19/2013 RECORDED 03/08/20 12 1:18PM BY VICK BUCKNER MA, ANNOTATI ON/ADDEN DUM Kathya shay [facility] 8 08:38:33 Miscarri age 30127470 Active 2011 Kathya shay [facility] 8 08:38:22 Urinary tract infectio us disease 43298434 Active 2011 Kathya shay [facility] 8 08:38:52 Vitamin D deficien cy 65152571 Completed 201111/19/2013 RECORDED 03/08/20 12 1:18PM BY VICK BUCKNER MA, GERAATI ON/ADDEN DUM [facility] [address] [facility] [address], [place], [address], [facility] 6 15:53:28 Screenin g for malignan t neoplasm of breast Completed 201112/09/2013 RECORDED 03/08/20 12 1:18PM BY VICK BUCKNER MA, ANNOTATI ON/ADDEN DUM [facility] 8 08:38:30 Malaise and fatigue 217602132 Completed 201112/09/2013 RECORDED 03/08/20 12 1:18PM BY VICK BUCKNER MA, ANNOTATI ON/ADDEN DUM [facility] [address], [place], [address], [facility] 6 15:53:28 Administ ration of bacteria l and viral vaccine Completed 200712/09/2013 RECORDED 07/10/19 08 2:32PM BY JESUS FRAZIER MD, OFFICE VISIT [facility]- [address] [facility] [address], [place], [address], [facility] 6 15:53:28 Influenz a vaccine needed 63307438631 06 Completed 201112/09/2013 RECORDED 03/08/20 12 2:02PM BY VICK BUCKNER MA, OFFICE VISIT [facility] [address] [place] [address] [address], [place], [address], [facility] 6 15:53:28 Vitamin D deficien cy 79276280 Completed 201112/09/2013 RECORDED 03/08/20 12 1:18PM BY VICK BUCKNER MA, ANNOTATI ON/ADDEN DUM [facility]- [address] [facility] [address], [place], [address], [facility] 6 15:53:28 Tick bite 68589936 Active [facility]- [address] [facility] [address], [place], [address], [facility] 6 15:53:28 Rebekah fontaine 78920088 Active [facility]- [address], [place], [address], [facility] 6 15:53:28 Acute sinusiti s 47526496 Active Woo Gonsalves MD [address] [facility] [address], [place], [address], [facility] 6 16:44:51 Problem Notes None recorded. Procedures Surgical History Date Name Laterality Status Provider Name and Address Organization Details Recorded Time Breast Surgery completed Kathyavicenta Bonillacait OLIVIA [facility] 07/21/2017 10:51:58 Hymenotomy completed Kathya Navarrete MA [facility] 07/21/2017 10:59:55 Imaging Results None recorded. Procedure Notes None recorded. Medical Equipment None Reported. Allergies Allergen ID Allergen Name Allergen Category Reaction Reaction Severity Criticality Documentation Date Start Date Code Code System Note Provider Name and Address Organization Details Recorded Time 00116 Substance with sulfonami de structure and antibacte rial mechanism of action (substanc e) medicatio n Not available Not available Not available 07/08/20142011 48137 8003 SNOMED REACT ION: BACTR IM, FACIA L RASH Yomaira shay, [facility] 5 11:00:53 Medications Name Sig Start Date [...] Updated DateTime 8 158.12 cm 20.4 kg/m2 28204.1 5 g 82 /min 100 % 100 % 99 [degF] 118 mm[Hg] 77 mm[Hg] Kathya Navarrete MA [facility] 8 10:59:26 Date Recorded Body height Body weight Body mass index (BMI) Body temperature Heart rate Oxygen saturation Oxygen saturation in Arterial blood by Pulse oximetry Systolic blood pressure Diastolic blood pressure Provider Name and Address Organization Details Last Updated DateTime 6 158.115 cm 99751.2 68253 g 19.8 kg/m2 99.1 [degF] 83 /min 97 % 97 % 120 mm[Hg] 68 mm[Hg] Kathya Navarrete MA [facility] 6 13:54:17 Date Recorded Body height Body weight Body mass index (BMI) Heart rate Oxygen saturation Oxygen saturation in Arterial blood by Pulse oximetry Body temperature Systolic blood pressure Diastolic blood pressure Provider Name and Address Organization Details Last Updated DateTime 6 158.115 cm 76108.4 60767 g 19.7 kg/m2 83 /min 98 % 98 % 97.6 [degF] 117 mm[Hg] 76 mm[Hg] Kathya Navarrete MA [facility] 6 15:23:44 Social History Question Answer Notes LastModified by Organizat ion Details LastModified Time Tobacco Smoking Status Former Smoker Kathya shay [facility] 05/07/2015 13:49:53 What Is Your Level Of [...] by Organization Details LastModified Time Father Malignant neoplasm of lung 85/dem entia/ alive 2018 mdalessandro Not available 07/21/2017 11:24:59 Father Hypercholest erolemia mdalessandro Not available 10/2015 14:53:06 Mother Diabetes mellitus 86/201 8 [email or web address] Not available 07/21/2017 11:23:54 Medical [...] free, adsorbed 0 completed Not Available [facility] 11/12/2013 14:12:40 Tdap 8 completed Not Available [facility] 11/12/2013 14:12:40 Past Encounters Encounter ID Performer Location Encounter Start Date Encounter Closed Date Diagnosis/Indication Diagnosis SNOMED-CT Code Diagnosis ICD10 Code Diagnosis Note [id number] autoEComm erce [address] [facility] [place] [address] 07/10/2007 00:00:00 [id number] autoEComm erce [address] [facility] [address] [place] [address] 03/08/2012 00:00:00 [id number] autoEComm erce [address] [facility] [address] [place] [address] 03/08/2012 00:00:00 [id number] autoEComm erce [address] [facility] [address] [place] [address] 03/08/2012 00:00:00 [id number] Jesus glass MD Main Office [address] [facility] [address] [place] [address] 05/07/2015 13:39:28 05/07/2015 14:51:38 Adult health examination 951190934 Z00.00 Screening for malignant neoplasm of colon 231652266 Z12.11 Screening for malignant neoplasm of breast 798176957 Z12.39 Screening for malignant neoplasm of cervix 990456065 Z12.4 Menopausal problem 92014 000 N95.1 [id number] Alexa Hein PA-C Main Office [address] [facility] [address] [place] [address] 06/10/2015 15:08:58 06/10/2015 15:55:41 Acute sinusitis 30284363 J01.90 Persistent sinus symptoms and sinusitis. Start Levofloxac in 500 mg qd for 1 week. Medrol dose pack as dir. . Continue Nasocort AQ and nasal saline as well as MUcinex. If recurrent, call Dr. John ENT for f/u. [id number] Jesus glass MD Main Office [address] [facility] [address] [place] [address] 07/21/2017 10:39:58 07/21/2017 11:42:59 Adult health examination 367093466 Z00.00 Screening for malignant neoplasm of breast 452807052 Z12.39 Screening for malignant neoplasm of colon 044015269 Z12.11 Administra tion of viral vaccine 37654944 Z23 Health Concerns Section Related Observation LastModified by Organization Detai ls LastModified Time None Recorded Concern Status LastModified by Organization Details LastModified Time None Recorded Advance Directives Directive None Recorded Payers Encounter Date Sequence Insurance Name Policy Number Policy Shoemaker Covered Member ID Shoemaker Member ID Guarantor Name 05/07/2015 1 REPLACED BY [facility]) [id number] 30 Michelle Anders Gerardo [id number] Michelle Gerardo 06/10/2015 1 REPLACED BY [facility]) [id number] 30 Michelle Anders Gerardo [id number] Michelle Carrillo 07/21/[address] [place] [address]) [id number] 30 Michelle Anders Gerardo [id number] Michellekathy Carrillo Notes Date Note Type Note Provider [...] considered it in past. Jesus shay MA - [facility] 05/07/2015 14:53:21 06/10/2015 text/html 60 year old fema le c/o 3 1/2 week onset of sinus congestion which is getting worse. Pt. went [facility] twice. Treated with Z-pack and inhaler which [...] they are thick green. Woo Gonsalves MD [address] [address], [place], [address], [facility] 06/10/2015 16:44:53 OBGyn Episode No OBEpisode recorded.
--- OUTSIDE RECORDS SUMMARY | 2024-08-29 10:04 | XMS_ITS | Patient Health Record ---
Author Organization [facility] Address [address] [facility] [address] [place] [address] Care Team Providers Care Insurance Follow Up Rep Name Role Phone JESUS POLLACK Primary Care Provider Unava Radha Tesfaye Unavailable [phone] Reason For Referral No Information Plan Of Treatment No Information Insurance Providers Payer Name Payer Address Payer Phone Subscriber Number Group Number Insured Name Patient Relationship to Insured Coverage Start Date Coverage End Date [facility] [address] [facility] [place] [address] [phone] [id number] ABBEY SOLIS Self - patient is the insured
--- OUTSIDE RECORDS SUMMARY | 2024-08-29 10:04 | XMS_ITS ---
Author Organization [facility] Address [address] [place] [address] Care Team Providers Care Hand Paint Mixer Name Role Phone Yazmin BRANHAM, Adrian Primary Care Provider Unav ailable Toro Hartman Unavailable [phone] REASON FOR VISIT Cancel Encounters Encounter Location Date Provider Diagnosis [facility] [address] [place] [address] 10/10/2023 Toro Hartman Plan Of Treatment No Information Progress Notes * Michelle CARRILLO ADOB:1955 (68 yo F)Acc No.[id number]:10/10/2023 Patient:?Michelle Carrillo :1955???Age:68 Y???Sex:Female Address:[address] [place] [address], [place], [address] * true * Date:? Generated for Maria Doloresi twyla/Mary/eTransmitting on:?08/29/2024 10:04 AM EDT
--- OUTSIDE RECORDS SUMMARY | 2024-08-29 10:04 | XMS_ITS ---
Author Organization [facility] Address [address] [place] [address] Care Team Providers Care Summer Nanny Name Role Phone Yazmin BRANHAM, Adrian Primary Care Provider Unav Toro Zaman [phone] Encounters Encounter Location Date Provider Diagnosis [facility] [address] [place] [address] 11/21/2023 Toro Hartman Plan Of Treatment No Information Progress Notes * Michelle CARRILLO ADOB:1955 (69 yo F)Acc No.[id number]:11/21/2023 Progress Notes Patient:?Michelle CARRILLO Provider:?Toro Hartman DPM :1955???Age:68 Y???Sex:Female D ate:11/21/2023 Address:[address] [place] [address], [facility] Pcp:Adrian Arce MD Subjective: * Chief Complaints: [...] Hartman DPM Date:? 024 Generated for Printi ng/Farafaelg/eTransmitting on:?08/29/2024 10:03 AM EDT
== END 2024-08-29 16:11 | disposition home or self-care (01) ==
LOC: HO.HPS 09:16
PROVIDERS: PCP Internal Medicine; Visit Provider Hospitalist
DX: J45.50 Severe persistent asthma, uncomplicated (principal); R01.1 Cardiac murmur, unspecified; L20.82 Flexural eczema
CPT/HCPCS: 99214; G2211

== ENCOUNTER → 2024-08-29 09:16 | Outpatient (BNVA) | payer MEDICARE, OTHER, SELFPAY | PROVIDERS: PCP Internal Medicine; Visit Provider Hospitalist | DX: J45.50 Severe persistent asthma, uncomplicated (principal); L20.82 Flexural eczema; R00.1 Bradycardia, unspecified; Z87.891 Personal history of nicotine dependence | CPT/HCPCS: 99212 ==

== ENCOUNTER 2024-09-16 08:51 | Outpatient (REF) | payer MEDICARE, OTHER, SELFPAY ==
--- OUTSIDE RECORDS SUMMARY | 2024-09-16 08:59 | XMS_ITS | Clinical Summary ---
Author Organization [facility] Address [address] [place] [address] Phone Care Team Providers Care Webbing Seamer Pound Net Name Role Phone Physician, No Pcp Primary [...] 2 (two) times a day. 5 Active clotrimazole-be tamethasone (LOTRISONE) 1-0.05 % cream APPLY TOPICALLY TO AFFECTED AREA TWICE DAILY FOR NO MORE THAN 10 DAYS 30 g 5 Active Additional Information Patient not taking.Reported on 07/11/2024 Active Problems Problem Noted Date Diagnosed Date Herpes genitalis in women 04/11/2023 Overview (05/08/2024): Last Assessment & Plan: Counseled pt re: findings c/w HSV. Will treat with Valtrex. Microscopic hematuria 04/11/2023 Overview (05/08/2024): Last Assessment & Plan: Will send culture and treat prn. Encounters Date Type Department Care Team Description 07/26/2024 Telephone Obstetrics and Gynecology - [address] [phone] Jocelynn Haddad CNM Vaginal/vulvar Complaint 07/19/2024 Telephone Obstetrics and Gynecology - [address] [phone] Jocelynn Haddad CNM Vaginal Discharge 07/11/2024 2:30 PM EDT Office Visit Obstetrics and Gynecology - [address] [phone] Jocelynn Haddad CNM Bacterial vaginitis (Primary Dx); Screen for STD (sexually transmitted disease); Vaginal discharge from Last 3 Months Surgical History Surgery Date Site/Laterality Comments APPENDECTOMY PROCEDURE: KS APPENDECTOMY WISDOM TOOTH EXTRACTION N/A PROCEDURE: HISTORICAL [...] EDT Office Visit Obstetrics & Gynecology - [address] [address] Radha Trinh, [facility] [address] [place], [place] [id number] Health Maintenance Due Date Last Done Comments [...] EDT Screen for STD (sexually transmitted disease) HM HEPATITIS C SCREENING Routine 05/05/2023 from Last 3 Months or Most Recently Relevant to Health Maintenance Results * Trichomonas vaginalis antigen (07/11/2024 3:13 PM EDT) Trichomonas vaginalis Negative Negative 07/11/2024 7:58 PM EDT [facility] Swab Vaginal structure / Unknown Non-blood Collection / Unknown 07/11/2024 3:13 PM EDT 07/11/2024 3:13 PM EDT Jocelynn FAJARDO LAB MICROBIOLOGY - GENERAL ORD ERABLES Final Result [facility] [address] [place] [address], [place] [phone] * Chlamydia trachomatis and Neisseria gonorrhoeae molecular study (07/11/2024 3:13 PM EDT) [facility] Neisseria gonorrhoeae PCR Negative Negative LAB MOLECULAR DIAGNOSTICS METHOD 07/12/2024 3:38 PM EDT [facility] Chlamydia trachomatis PCR Negative Negative LAB MOLECULAR DIAGNOSTICS METHOD 07/12/2024 3:38 PM EDT [facility] Swab Cervix uteri structure / Unknown Non-blood Collection / Unknown 07/11/2024 3:13 PM EDT 07/11/2024 3:13 PM EDT [facility]u [facility] MICROBIOLOGY - GENERAL ORD ERABLES Final Result [facility] [address] [place] [address], [place] [phone] * (ABNORMAL) POC [place] (07/11/2024 3:13 PM EDT) Pathologist [facility] Trichomonas, Wet Prep POC Absent Absent Yeast, [...] Hepatitis C Screening abstracted Historical Provider MD HEALTH MAINTENANCE Final Result from Last 3 Months or Most Recently Relevant to Health Maintenance Insurance MEDICARE [facility] Care Teams Webbing Seamer Pound Net Relationship Specialty Start Date End Date Physician, No Pcp PCP - General 05/17/24
--- OUTSIDE RECORDS SUMMARY | 2024-09-16 09:00 | XMS_ITS ---
Author Organization [facility] Address [address] [facility], [place] [address] Care Team Providers Care Service Station Attendant Name Role Phone Yazmin BRANHAM, Adrian Primary Care Provider Unav Toro Zaman [phone] Encounters Encounter Location Date Provider Diagnosis [facility] [address] [place] [address] 11/21/2023 Toro Hartman Plan Of Treatment No Information Progress Notes * Michelle CARRILLO ADOB:1955 (69 yo F)Acc No.[id number]:11/21/2023 Progress Notes Patient:?Michelle CARRILLO Provider:?Toro Hartman DPM :1955???Age:68 Y???Sex:Female D ate:11/21/2023 Address:[address] [place] [address], [facility] Pcp:Adrian Arce MD Subjective: * Chief Complaints: [...] DPM Date:? 024 Generated for Printi ng/Faxing/eTransmitting on:?09/16/2024 09:00 AM EDT
--- OUTSIDE RECORDS SUMMARY | 2024-09-16 09:00 | XMS_ITS | Data Portability ---
Author Organization [facility], Main Office Address [address] [place] [address] Care Team Providers Care Logging Contractor Name Role Phone ALEXA HEIN OTHER Assessment [...] 8 11:42:[address] referral 2015 016 [facility], [address] [place] [address], [place], [address], 6 14:42:14 Procedures colonoscop y screening (PROC) [...] levofloxac in 500 mg tablet 2015 016 [id number], [address] [place], [address], 8 08:37:53 Medrol (Henry) 4 mg tablets in a dose pack 2015 016 [id number], [address] [place], [address], 8 08:38:01 Patient TargetsNo targets recorded. Patient Instructions Encounter Date Encounter Id Patient Instructions Last Modified By Organization Details Last Modified Time 05/07/2015 [id number] Screening Mammogram [email or web address] Not available 05/07/2015 15:21:42 Colon Cancer Screening VMA [email or web address] Not available 05/07/2015 14:47:03 Cervical Cancer Screening [email or web address] Not available 05/07/2015 15:21:42 Medications were reviewed [...] ? mdalessandro Not available 05/07/2015 14:34:22 06/10/2015 [id number] I have reviewed the note and agree with the assessment and plan of care. dontrell Not available 06/10/2015 16:44:52 07/21/2017 [id number] learning about colon cancer [email or web address] Not available 07/21/2017 11:25:01 Reason for Referral Coding Technician Referral for Sc reening for malignant neoplasm of cervix Annual Exam Referring Physician: Jesus Thurman, Internal Medicine, Encounter Date: 05/07/2015 [employer] Referral for Screening for malignant neoplasm of [...] Go To The Location Of Their Choice, [facility] 07/21/2017 20:49:33 07/22/19 18 07/21/2017 lipid panel , serum triglyceride 86 mg/dL (<150) Not Available [facility] (Centralized Electronic Ordering - All Locations) Patient Can Go To The Location Of Their Choice, [id number] 07/21/2017 20:49:33 07/22/19 18 07/21/2017 lipid panel , serum HDL chol 70 mg/dL (>39) Not Available [facility] (Centralized Electronic Ordering - All Locations) Patient Can Go To The Location Of Their Choice, [id number] 07/21/2017 20:49:33 07/22/19 18 07/21/2017 lipid panel , serum LDL cholesterol, calculated 155 mg/dL (0-130 ) high Not Available [facility] (Centralized Electronic Ordering - All Locations) Patient Can Go To The Location Of Their Choice, [id number] 07/21/2017 20:49:33 07/22/19 18 07/21/2017 lipid panel , serum non HDL cholesterol (calc) 172 mg/dL (<160) high Not Available [facility] (Centralized Electronic Ordering - All Locations) Patient Can Go To The Location Of Their Choice, [facility] 07/21/2017 20:49:33 Result Notes None recorded. Problems Name Problem SNOMED Code Status Onset Date Resolution Date Notes Provider Name and Address Organization Details Recorded Time Allergic rhinitis 16493715 Active 2011 CORWIN Norman MA [facility] 8 08:38:48 Patient status finding 159034267 Completed 201107/21/2017 RECORDED 03/08/20 12 1:53PM BY VICK BUCKNER MA, OFFICE VISIT CORWIN Norman MA [facility] 8 08:38:06 Screenin g for malignan t neoplasm of breast Completed 201111/19/2013 RECORDED 03/08/20 12 1:18PM BY VICK BUCKNER MA, ANNOTATI ON/ADDEN DUM Kathya shay, [facility] 8 08:38:30 Screenin g for malignan t neoplasm of breast Completed 201207/21/2017 RECORDED 02/28/20 13 12:48PM BY MICKIE JACKSON MA, PHONE ENCOUNTE R Kathya Navarrete MA null, [facility] 8 08:38:30 Screenin g for malignan t neoplasm of cervix Completed 201207/21/2017 RECORDED 02/28/20 13 12:48PM BY MICKIE JACKSON MA, PHONE ENCOUNTE R Kathya Navarrete MA null, [facility] 8 08:38:15 Chronic sinusiti s 69663980 Active 2011 Kathya shay, [facility] 8 08:38:38 Adult health examinat ion Completed 201107/21/2017 RECORDED 03/08/20 12 1:54PM BY VICK BUCKNER MA, OFFICE VISIT Kathya shay, [facility] 8 08:38:33 Hyperlip idemia 68046012 Active 2011 Kathya shay, [facility] 8 08:38:42 Malaise and fatigue 037208796 Completed 201111/19/2013 RECORDED 03/08/20 12 1:18PM BY VICK BUCKNER MA, ANNOTATI ON/ADDEN DUM Alexa Hein PA-C [address] [facility] [address], [facility] [place], [address] , [facility] 6 15:53:28 Menopaus al symptom 30184563 Active 2011 Kathya shay, [facility] 8 08:38:27 Administ ration of bacteria l and viral vaccine Completed 200711/19/2013 RECORDED 07/10/19 08 2:32PM BY JESUS FRAZIER MD, OFFICE VISIT [facility] [address] [facility] [address], [place], [address], [facility] 6 15:53:28 Influenz a vaccine needed 03218691131 06 Completed 201111/19/2013 RECORDED 03/08/20 12 2:02PM BY VICK BUCKNER MA, OFFICE VISIT [facility] [address] [facility] [address], [place], [address], [facility] 6 15:53:28 Adult health examinat ion Completed 201111/19/2013 RECORDED 03/08/20 12 1:18PM BY VICK BUCKNER MA, ANNOTATI ON/ADDEN DUM Kathya shay [facility] 8 08:38:33 Miscarri age 20991731 Active 2011 Kathya shay [facility] 8 08:38:22 Urinary tract infectio us disease 05827791 Active 2011 Kathya shay [facility] 8 08:38:52 Vitamin D deficien cy 56919742 Completed 201111/19/2013 RECORDED 03/08/20 12 1:18PM BY VICK BUCKNER MA, GERAATI ON/ADDEN DUM [facility] [address] [facility] [address], [place], [address], [facility] 6 15:53:28 Screenin g for malignan t neoplasm of breast Completed 201112/09/2013 RECORDED 03/08/20 12 1:18PM BY VICK BUCKNER MA, ANNOTATI ON/ADDEN DUM Kath[facility] Bigby [facility] 8 08:38:30 Malaise and fatigue 035481767 Completed 201112/09/2013 RECORDED 03/08/20 12 1:18PM BY VICK BUCKNER MA, ANNOTATI ON/ADDEN DUM [facility] [address], [place], [address], [facility] 6 15:53:28 Administ ration of bacteria l and viral vaccine Completed 200712/09/2013 RECORDED 07/10/19 08 2:32PM BY JESUS FRAZIER MD, OFFICE VISIT [facility]- [address] [facility] [address], [place], [address], [facility] 6 15:53:28 Influenz a vaccine needed 30295673355 06 Completed 201112/09/2013 RECORDED 03/08/20 12 2:02PM BY VICK BUCKNER MA, OFFICE VISIT [facility] [address] [place] [address] [address], [place], [address], [facility] 6 15:53:28 Vitamin D deficien cy 71979282 Completed 201112/09/2013 RECORDED 03/08/20 12 1:18PM BY VICK BUCKNER MA, ANNOTATI ON/ADDEN DUM [facility]- [address] [facility] [address], [place], [address], [facility] 6 15:53:28 Tick bite 87503629 Active [facility]- [address] [facility] [address], [place], [address], [facility] 6 15:53:28 Rebekah fontaine 84468548 Active [facility]- [address], [place], [address], [facility] 6 15:53:28 Acute sinusiti s 71510976 Active Woo Gonsalves MD [address] [facility] [address], [place], [address], [facility] 6 16:44:51 Problem Notes None recorded. Procedures Surgical History Date Name Laterality Status Provider Name and Address Organization Details Recorded Time Breast Surgery completed Kathyavicenta Bonillacait OLIVIA [facility] 07/21/2017 10:51:58 Hymenotomy completed Kathya Navarrete MA [facility] 07/21/2017 10:59:55 Imaging Results None recorded. Procedure Notes None recorded. Medical Equipment None Reported. Allergies Allergen ID Allergen Name Allergen Category Reaction Reaction Severity Criticality Documentation Date Start Date Code Code System Note Provider Name and Address Organization Details Recorded Time 49792 Substance with sulfonami de structure and antibacte rial mechanism of action (substanc e) medicatio n Not available Not available Not available 07/08/20142011 02680 8003 SNOMED REACT ION: BACTR IM, FACIA L RASH Yomaira shay, [facility] 5 11:00:53 Medications Name Sig Start [...] Updated DateTime 8 158.12 cm 20.4 kg/m2 25727.1 5 g 82 /min 100 % 100 % 99 [degF] 118 mm[Hg] 77 mm[Hg] Kathya Navarrete [facility] 8 10:59:26 Date Recorded Body height Body weight Body mass index (BMI) Body temperature Heart rate Oxygen saturation Oxygen saturation in Arterial blood by Pulse oximetry Systolic blood pressure Diastolic blood pressure Provider Name and Address Organization Details Last Updated DateTime 6 158.115 cm 69850.2 56313 g 19.8 kg/m2 99.1 [degF] 83 /min 97 % 97 % 120 mm[Hg] 68 mm[Hg] Kathya Navarrete MA [facility] 6 13:54:17 Date Recorded Body height Body weight Body mass index (BMI) Heart rate Oxygen saturation Oxygen saturation in Arterial blood by Pulse oximetry Body temperature Systolic blood pressure Diastolic blood pressure Provider Name and Address Organization Details Last Updated DateTime 6 158.115 cm 58933.4 62046 g 19.7 kg/m2 83 /min 98 % 98 % 97.6 [degF] 117 mm[Hg] 76 mm[Hg] Kathya Navarrete MA [facility] 6 15:23:44 Social History Question Answer Notes LastModified by Organizat ion Details LastModified Time Tobacco Smoking Status Former Smoker Kathya shay [facility] 05/07/2015 13:49:53 Is Blood Transfusion Acceptable In An Emergency? Yes Information not available 05/07/2015 What Is Your Level Of Caffeine Consumption? Moderate 3 Cups Of Coffee A Day Information not available 05/07/2015 How Much Tobacco Do You Chew? None Information not available 05/07/2015 What Type Of [...] Children Do You Have? 2 Dtr Is Shelley , Grandson Is Raphael Doss sinan Information not available 05/07/2015 Do You Use [...] LastModified by Organization D etails LastModified Time What is your level of alcohol consumption? None Information not available 05/07/2015 Are you currently employed? Yes Information not available 05/07/2015 Are you able to care for yourself? [...] Recorded Time Tdap 8 completed Not Available [facility] 05/18/2019 02:21:47 Td (adult), 2 Lf tetanus toxoid, preservative free, adsorbed 0 completed Not Available [facility] 11/12/2013 14:12:40 Tdap 8 completed Not Available [facility] 11/12/2013 14:12:40 Past Encounters Encounter ID Performer Location Encounter Start Date Encounter Closed Date Diagnosis/Indication Diagnosis SNOMED-CT Code Diagnosis ICD10 Code Diagnosis Note [id number] autoEComm erce [address] [facility] [place] [address] 07/10/2007 00:00:00 [id number] autoEComm erce [address] [facility] [address] [place] [address] 03/08/2012 00:00:00 [id number] autoEComm erce [address] [facility] [address] [place] [address] 03/08/2012 00:00:00 [id number] autoEComm erce [address] [facility] [address] [place] [address] 03/08/2012 00:00:00 [id number] Jesus glass MD Main Office [address] [facility] [address] [place] [address] 05/07/2015 13:39:28 05/07/2015 14:51:38 Adult health examination 676088401 Z00.00 Screening for malignant neoplasm of colon 918784068 Z12.11 Screening for malignant neoplasm of breast 606598698 Z12.39 Screening for malignant neoplasm of cervix 765643519 Z12.4 Menopausal problem 64884 000 N95.1 [id number] Alexa Hein PA-C Main Office [address] [facility] [address] [facility] [place] [address] 06/10/2015 15:08:58 06/10/2015 15:55:41 Acute sinusitis 04571789 J01.90 Persistent sinus symptoms and sinusitis. Start Levofloxac in 500 mg qd for 1 week. Medrol dose pack as dir. . Continue Nasocort AQ and nasal saline as well as MUcinex. If recurrent, call Dr. John ENT for f/u. [id number] Jesus glass MD Main Office [address] [facility] [address] [facility] [place] [address] 07/21/2017 10:39:58 07/21/2017 11:42:59 Adult health examination 838056562 Z00.00 Screening for malignant neoplasm of breast 753843089 Z12.39 Screening for malignant neoplasm of colon 824679396 Z12.11 Administra tion of viral vaccine 02814150 Z23 Health Concerns Section Related Observation LastModified by Organization Detai ls LastModified Time None Recorded Concern Status LastModified by Organization Details LastModified Time None Recorded Advance Directives Directive None Recorded Payers Encounter Date Sequence Insurance Name Policy Number Policy Shoemaker Covered Member ID Shoemaker Member ID Guarantor Name 05/07/2015 1 [facility]) [id number] 30 Michelle Anders Gerardo [id number] Michelle Gerardo 06/10/2015 1 [facility]) [id number] 30 Michelle Anders Gerardo [id number] Michelle Carrillo 07/21/[address] [place] [address]) [id number] 30 Michelle Anders Gerardo [id number] Michellekathy Carrillo Notes Date Note Type Note [...] it in past. Jesus shay [place] - [facility] 05/07/2015 14:53:21 06/10/2015 text/html 60 year old fema le c/o 3 1/2 week onset of sinus congestion which is getting worse. Pt. went to [facility] twice. Treated with Z-pack and inhaler which [...] they are thick green. Woo Gonsalves MD [address] [address], [place], [address], [facility] 06/10/2015 16:44:53 OBGyn Episode No OBEpisode recorded.
--- OUTSIDE RECORDS SUMMARY | 2024-09-16 09:00 | XMS_ITS ---
Author Organization [facility] Address [address] [place] [address] Care Team Providers Care Grey Goods Examiner Name Role Phone Yazmin BRANHAM, Adrian Primary Care Provider Unav ailable Toro Hartman Unavailable [phone] REASON FOR VISIT ON Encounters Encounter Location Date Provider Diagnosis [facility] [address] [place] [address] 08/21/2023 Toro Hartman Plan Of Treatment No Information Progress Notes * Michelle CARRILLO ADOB:1955 (68 yo F)Acc No.[id number]:08/21/2023 Patient:?Michelle Carrillo :1955???Age:68 Y???Sex:Female Address:[address] [place] [address], [place], [address] * true * Date:? Generated for Rishabh wakefield/Mary/eTransmitting on:?09/16/2024 09:00 AM EDT
--- OUTSIDE RECORDS SUMMARY | 2024-09-16 09:00 | XMS_ITS | Patient Health Record ---
Author Organization [facility] Address [address] [facility] [address] [place] [address] Care Team Providers Care Unit Clerk Name Role Phone JESUS POLLACK Primary Care Provider Unava Radha Tesfaye Unavailable [phone] Reason For Referral No Information Plan Of Treatment No Information Insurance Providers Payer Name Payer Address Payer Phone Subscriber Number Group Number Insured Name Patient Relationship to Insured Coverage Start Date Coverage End Date [facility] [address] [place] [address] [phone] [id number] ABBEY SOLIS Self - patient is the insured
--- OUTSIDE RECORDS SUMMARY | 2024-09-16 09:00 | XMS_ITS | Patient Health Record ---
Author Organization [facility] Address [address] [place] [address] Care Team Providers Care Advertising Sales Representative Name Role Phone Yazmin BRANHAM, Adrian Primary Care Provider Toro Haskins Unavailable [phone] Allergies Allergen (clinical drug ingredient) Drug/Non Drug [...] Status Risk Notes Problem Acquired hallux valgus (06993910) Hallux valgus (acquired), left foot (M20.12) Active confirmed Problem Acquired hallux valgus (16210079) Hallux valgus (acquired), right foot (M20.11) Active confirmed Encounters Encounter Location Date Provider Diagnosis [facility] [address] [place] [address] 10/10/2023 Toro Hartman Plan Of Treatment Pending Test Test Name Order Date X ray : Foot, left 2V 10/11/2017 X ray : Foot, right 2V 10/11/2017 Insurance Providers Payer Name Payer Address Payer Phone Subscriber Number Group Number Insured Name Patient Relationship to Insured Coverage Start Date Coverage End Date Medicare National [employer] [address] [place] [address] Michelle Carrillo Self - patient is the insured [employer] [address] [place] [address] [phone] Michelle Carrillo Self - patient is the insured Medical (General) History Medical History History ICD Code Measles Mumps Chicken pox chronic sinusitis Surgical History Surgery Date(Month/Year) Tooth extraction 2015
--- OUTSIDE RECORDS SUMMARY | 2024-09-16 09:00 | XMS_ITS ---
Author Organization [facility] Address [address] [place] [address] Care Team Providers Care Electrical Tester Name Role Phone Yazmin BRANHAM, Adrian Primary Care Provider Unav ailable Toro Hartman Unavailable [phone] REASON FOR VISIT Cancel Encounters Encounter Location Date Provider Diagnosis [facility] [address] [place] [address] 10/10/2023 Toro Hartman Plan Of Treatment No Information Progress Notes * Michelle CARRILLO ADOB:1955 (68 yo F)Acc No.[id number]:10/10/2023 Patient:?Michelle Carrillo :1955???Age:68 Y???Sex:Female Address:[address] [place] [address], [place], [address] * true * Date:? Generated for Maria Doloresi twyla/Mary/eTransmitting on:?09/16/2024 09:00 AM EDT
[2024-09-16 09:06] LABS: MANUAL DIFF FLAG NO
[2024-09-16 09:15] LABS: Basophils Absolute Auto 0.1 X10*3/uL (0.0-0.2); Basophils Percent Auto 0.8 % (0-2); Eosinophils Absolute Auto 0.9 X10*3/uL (0.0-0.4); Eosinophils Percent Auto 10.8 % (0-4); Hematocrit 43.6 % (37.0-47.0); Hemoglobin 14.5 g/dl (12.0-16.0); Imm Gran Abs Auto 0.03 X10*3/uL (0.00-0.03); Imm Gran Pct Auto 0.4 % (0.0-0.4); Lymphocytes Absolute Auto 2.4 X10*3/uL (1.2-4.9); Lymphocytes Percent Auto 28.6 % (20-40); Mean Corpuscular HGB Conc 33.3 g/dl (31.0-35.0); Mean Corpuscular Hemoglobin 31.5 pg (27.0-33.0); Mean Corpuscular Volume 94.8 fL (80.0-98.0); Mean Platelet Volume 9.4 fL (9.4-12.3); Monocytes Absolute Auto 0.8 X10*3/uL (0.1-1.2); Monocytes Percent Auto 9.8 % (2-11); Neutrophils Absolute Auto 4.1 x10*3/uL (2.0-8.3); Neutrophils Percent Auto 49.6 % (45-73); Platelet Count 399 X10*3/uL (160-400); Red Cell Distribution Width 12.6 % (11.0-16.0); White Blood Count 8.3 X10*3/uL (4.8-10.8)
[2024-09-16 09:55] LABS: Alanine Aminotransferase 18 U/L (0-31); Albumin Level 4.1 g/dL (3.5-5.0); Alkaline Phosphatase 73 U/L (39-117); Anion Gap 11 (12-20); Aspartate Amino Transferase 25 U/L (5-31); Bilirubin Total 1.2 mg/dL (0.0-1.0); Blood Urea Nitrogen 22 mg/dL (9-16); Calcium 9.2 mg/dL (8.4-10.2); Carbon Dioxide 27 mmol/L (22-29); Chloride 106 mmol/L (96-108); Cholesterol 172 mg/dL (<200); Estimated Glomerular Filt Rate > 60; Glucose Random 94 mg/dL (60-115); HDL Cholesterol 55 mg/dL (>40); LDL Cholesterol Calculated 108 mg/dL (<100); Sodium 140 mmol/L (135-145); Triglycerides 45 mg/dL (<150)
[2024-09-16 10:13] LABS: TSH reflex Free T4 1.51 uIU/mL (0.32-4.0)
[2024-09-16 10:25] LABS: Appearance Urine Cloudy; Color Urine Yellow; Glucose Urine UA Negative (Negative); Leukocyte Esterase Urine Trace (Negative); Nitrite Urine Negative (Negative); UMIC TRIGGER UACC YES; Urine Blood Negative (Negative); Urine Ketones Negative (Negative); Urine Protein Negative (Neg-Trace)
[2024-09-16 10:29] LABS: Bacteria Urine None Seen (None Seen); Hyaline Casts Urine 0-2 /LPF (0-2); RBC Urine 0-2 /HPF (0-2); Squamous Epithelial Cell Urine 0-2 /HPF (0-2); WBC Urine 0-5 /HPF (0-5)
== END 2024-09-16 08:52 | disposition home or self-care (01) ==
LOC: HO.LAB 08:51
PROVIDERS: PCP Internal Medicine; Visit Provider Internal Medicine
DX: Z00.00 Encounter for general adult medical examination without abnormal findings (principal); J45.51 Severe persistent asthma with (acute) exacerbation; T78.40XA Allergy, unspecified, initial encounter; R30.0 Dysuria
CPT/HCPCS: 36415; 80053; 80061; 81001; 84443; 85025; 87086

== ENCOUNTER 2025-02-25 14:15 | Outpatient (REF) | payer MEDICARE, OTHER, SELFPAY ==
[2025-02-25 16:31] LABS: Bacterial Vaginosis PCR NEGATIVE (Negative); Candida Group PCR NOT DETECTED (Not Detect); Candida glab krusei PCR NOT DETECTED (Not Detect); Trichomonas vaginalis PCR NOT DETECTED (Not Detect)
[2025-02-25 17:01] LABS: CT PCR NOT DETECTED (Not Detect.); NG PCR NOT DETECTED (Not Detect.)
== END 2025-02-25 14:16 | disposition home or self-care (01) ==
LOC: HO.LNP 14:15
PROVIDERS: PCP Internal Medicine; Visit Provider Advanced Practice Midwife
DX: Z01.419 Encounter for gynecological examination (general) (routine) without abnormal findings (principal); Z20.2 Contact with and (suspected) exposure to infections with a predominantly sexual mode of transmission
CPT/HCPCS: 81515; 87491; 87591; 87626; 88175; G0101; Q0091

== ENCOUNTER 2025-02-25 14:42 | Outpatient (AMB) | payer MEDICARE, OTHER, SELFPAY ==
--- OUTSIDE RECORDS SUMMARY | 2023-11-21 06:30 | XMS_ITS ---
Author Organization [facility] Address [address] [place] [address] Care Team Providers Care Metalizer Name Role Phone Yazmin BRANHAM, Adrian Primary Care Provider Unav ailable Toro Raman Unavailable [phone] Encounters Encounter Location Date Provider Diagnosis [facility] [address] [place] [id number] 11/21/2023 Toro Raman Plan Of Treatment No Information Progress Notes * Michelle CARRILLO ADOB:1955 (69 yo F)Acc No.[id number]:11/21/2023 Progress Notes Patient: Michelle QUILES Provider: Margi Hartman DPM :1955 A ge:68 Y S ex:Female Date:11/21/2023 Address:[address] [place] [address], [place], [place] Pcp:Adrian Arce MD Subjective: * Chief Complaints: [...] Date: 0 11/21/2023 Generated for Maria Doloresi ng/Faxing/eTransmitting on: 06:36 PM EDT
--- NOTE | 2025-02-25 14:18 | MHC.OFFVIS ---
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 Filler Blender concerns: , has new partner. Concerned re: bruising left breast after intimacy. No injuries to the area. Currently sexually active. Denies any vaginal dryness or irritation. STI testing offered; she accepts. Attempting to eat a healthy diet with calcium and vitamin D and stays active with exercise. Last pap smear; unknown, negative. Last mammogram; declines mammogram due to radiation exposure. ColoGard is not up to dates, declines colonscopy. Denies any family history of breast, ovarian or colon cancer. [facility] Medical History Genital herpes Eczema Sinusitis Asthma Bronchitis, mucopurulent recurrent Allergic urticaria Reactive airway disease Murmur Tachycardia Post-COVID syndrome Bronchitis COVID-19 Surgical History History of appendectomy Family History Mother Diabetes Lymphoma Father Lung cancer Alzheimer disease Maternal Grandmother Congestive heart failure Maternal Grandfather Diabetes Social History Household Members: None Housing: House Alcohol intake: never Patient Tobacco Use Status: Former Tobacco user Tobacco use type: Cigarette Years Smoked: 20+ years e-Cigarette/Vaping Use: Never Used Current occupational status: employed 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 Current occupational exposures/hazards: No Cognitive needs: No Hearing needs: No Vision needs: Yes Female Reproductive History Menstrual Total pregnancies: 3 Full term: 2 Number of Living Children: 2 Review of Systems Const All systems reviewed & are unremarkable except as noted in HPI and below Reports as per HPI Eyes Reports no additional complaints ENT Reports no additional complaints Card Reports no additional complaints Resp Reports no additional complaints GI Reports as per HPI and Reports no additional complaints Reports as per HPI Musc Reports no additional complaints Skin/Breast Reports as per HPI Neuro Reports no additional complaints Psych Reports no additional complaints Endo Reports no additional complaints Vincent/Lymph Reports no additional complaints Aller/Immun Reports no additional complaints Physical Exam Vital Signs: Last Vital Signs BP 110/77 02/25/25 14:19 BMI result Body Mass Index 19.9 Const General: cooperative, healthy appearing, no acute distress, well developed and alert Orientation/consciousness: patient oriented x3 HEENT Head: Yes normal to inspection Eyes General: appearance normal, both eyes and all related structures Neck Neck: Yes normal visual inspection Thyroid: Thyroid normal Chest Other: Small ecchymotic area on the inner left breast at 9-10:00 Chest palpation & inspection: normal inspection of the chest and other (no puckering, dimpling, peau de orange, retraction, discharge, masses) Breast/axilla inspection: normal inspection of the breasts Breast/axilla palpation: normal palpation of the breasts Resp Effort & Inspection: normal respiratory effort GI Inspection: Yes normal to inspection Palpation (GI): Soft to palpation Rectal Exam - Female: deferred General: Yes bladder normal to palpation External Female Exam: normal external appearance and normal appearance of the urethra Speculum Exam - Vagina: normal appearance of the vagina, normal palpation, normal vaginal discharge and vagina atrophic Speculum Exam - Cervix: normal appearance of the cervix and normal palpation Bimanual exam- vagina & uterus: normal bimanual exam, normal palpation, uterine size normal, bladder normal to palpation, normal palpation and non-tender Bimanual Exam- Adnexa, other: no masses Skin General skin exam: no rashes or lesions noted Rashes: no rashes Neuro General: patient oriented x3 Cognition (Neuro): normal cognition Extrem General: Yes normal to inspection Psych Attitude: cooperative Thought process: Normal thought process present Assessment & Plan Assessment & Plan (1) Encounter for well woman exam with routine gynecological exam: Code(s): Z01.419 - Encounter for gynecological examination (general) (routine) without abnormal findings Category: Medical Plan Discussed: Current recommendations for pap smears per ASCCP guidelines. Breast awareness, periodic self breast exams and yearly mammogram. Recommended early detection for breast cancer through screening, versus doing nothing until a breast lump is found, potentially limiting treatment options with advanced disease/metastases. She is not interested in MRI. Maintain a healthy lifestyle, well balanced diet including Calcium 1,200 mg and Vitamin D 600 IU daily, and routine exercise. Aging changes of skin w/bruising and tears. Vaginal atrophy, replens moisturizer, lubricants. Contact the office with any postmenopausal bleeding. Recommended up-to-date Cologuard encouraged patient to call primary care for current kit and order. Patient verbalizes understanding and agrees to the plan of care. She was given opportunity to ask questions and all questions were answered to the best of my ability. RTO in 1 year for annual anatomic pathology assistant exam. This note is constructed using voice recognition software. While every effort has been made to ensure accuracy, burn table operator errors may have been included. Orders: Orders CT NG by PCR Vag/Cerv Today Z20.2 - Contact with and (suspected) exposure to infections with a predominantly sexual mode of transmission HPV High risk Today Z01.419 - Encounter for gynecological examination (general) (routine) without abnormal findings Pap Smear Today Z01.419 - Encounter for gynecological examination (general) (routine) without abnormal findings Bacterial Vaginosis Panel Today Z20.2 - Contact with and (suspected) exposure to infections with a predominantly sexual mode of transmission Coding Level of Care Code New Pt Prev Care >65yr (64569) Diagnoses Encounter for well woman exam with routine gynecological exam Z01.419
[2025-02-25 14:19] VITALS: BP 110/77; BMI 19.9
--- OUTSIDE RECORDS SUMMARY | 2025-02-25 18:36 | XMS_ITS | Data Portability ---
Author Organization [facility] [address] Address [address] [place] [address] Assessment No assessment recorded. Plan of Treatment Reminders Order Date Submit Date Provider Last Modified By Organization Details Last Modified Time Details Appointments None recorded. Lab SARS CoV 2 (COVID-19) Ag, QL, IA, upper respiratory specimen 2023 024 [email or web address] [address] [facility] [address], [address] [place], [address], 19:26:41 Referral None recorded. Procedures None recorded. Surgeries None recorded. Imaging None recorded. Medication Orders prednisone 20 mg tablet 2023 024 [id number], [address] [place], [address], 4 19:26:42 Augmentin 875 mg-125 mg tablet 2023 024 [facility][id number], [address] [place], [address], 4 19:26:43 Patient TargetsNo targets recorded. Patient Instructions Encounter Date Encounter Id Patient Instructions Last Modified By Organization Details Last Modified Time 11/28/2023 [id number] Follow-up with your doctor if no improvement in 1 week. Seek Emergency Medical evaluation for any worsening symptoms. [email or web address] Not available 11/28/2023 19:26:37 Reason for Referral None Reported. Results Created Date Observation Date Name Description Value Unit Range Abnormal Flag Note LastModifiedBy Organization Detail LastModifiedTime 11/28/19 24 11/28/2023 SARS CoV 2 (COVI D-19) Ag, QL, IA, upper respi rator y speci men Unknown Analyte negati ve Not Available [address] [place], [address], 11/28/2023 19:01:45 Result Notes None recorded. Problems Name Problem SNOMED Code Status Onset Date Resolution Date Notes Provider Name and Address Organization Details Recorded Time Asthma 675147134 Active DIONY MINEO null, [place] - [facility] 4 19:00:05 Sinusitis 05731337 Active DIONY MINEO null, [place] - [facility] 19:00:15 Problem Notes None recorded. Medical Equipment None Reported. Allergies Allergen ID Allergen Name Allergen Category Reaction Reaction Severity Criticality Documentation Date Start Date Code Code System Note Provider Name and Address Organization Details Recorded Time 952373 Bactrim medicatio n Not available Not available Not available 11/28/2023 40208 9 RxNorm DIONY MINEO null, PA - [...] Heart rate Respiratory rate Body temperature Systolic And Diastolic Provider Name and Address Organization Details Last Updated DateTime 4 157.48 cm 19 kg/m2 32995.6 1 g 98 % 98 % 88 /min 18 /min 98.2 [degF] 118/75 mm[Hg] DIONY RUTHERFORD [place] - [facility] 4 19:01:29 Social History None recorded. Functional Status Question Answer Note LastModified by Organizat ion Details LastModified Time Do you use any illicit or recreational drugs? No Information not available 11/28/2023 What is your level of alcohol consumption? None Information not available 11/28/2023 Mental Status None recorded. Family History Nothing Reported. Medical History No medical history recorded. Gynecological History Statement/Question Response LMP N/A Obstetrics History GPAL:G 0 P 0 0 0 0 Past Encounters Encounter ID Performer Location Encounter Start Date Encounter Closed Date Diagnosis/Indication Diagnosis SNOMED-CT Code Diagnosis ICD10 Code Diagnosis IMO Codes Diagnosis Note [id number] [address] [place] [address] 12/15/2019 15:30:24 12/15/2019 15:59:[id number] [place] [address] 07/05/2018 14:08:24 07/05/2018 15:02:09 [id number] [place] [address] 07/16/2018 18:17:14 07/16/2018 19:10:17 [id number] [address] [place] [address] 02/09/2017 18:53:59 02/09/2017 19:35:47 [id number] [address] [place] [address] 05/18/2015 11:53:52 05/18/2015 12:28:11 [id number] [address] [place] [address] 05/25/2020 18:50:55 05/25/2020 19:29:04 [id number] [address] [place] [address] 11/13/2016 17:56:36 11/13/2016 18:27:40 [id number] [address] [place] [address] 05/21/2015 10:43:28 05/21/2015 11:47:29 [id number] [address] [place] [address] 05/19/2019 15:47:25 05/19/2019 16:02:47 [id number] [address] [place] [address] 08/02/2016 19:01:00 08/02/2016 19:56:35 [id number] [address] [address] [facility] [address] [place] [address] 11/15/2017 19:27:57 11/15/2017 19:39:43 [id number] ALL[place] MILLS [place] [address] [address] 11/28/2023 18:46:44 11/28/2023 19:27:50 Dry cough 27439826 R05.9 CoughBlack Elderberry Syrup:1-2 tsp 2-3 times a day for 5 days as needed for coughing.S ambucol Black Elderberry Original Syrup (available at [employer] )Jannet Herbs Black Elderberry Syrup, 5.4-Ounce Bottle (available at [employer] or [employer]) Use a cool mist humidifier in the room that you sleep to add moisture to the air, which should soothe the airways and help loosen any mucus that may be present. Acute maxi llary sinusitis 14373547 J01.00 Health Concerns Section Related Observation LastModified by Organization Detai ls LastModified Time None Recorded Concern Status LastModified by Organization Details LastModified Time None Recorded Advance Directives Directive None Recorded Payers Insurance Date Sequence Insurance Name Policy Number Policy Shoemaker Covered Member ID Shoemaker Member ID Guarantor Name 11/28/2023 1 MEDICARE B-AR: [facility] [email or web address] Michelle Carrillo [id number] Michelle Carrillo 11/28/2023 2 [facility] INDEMNITY PLAN (INDEMNITY) [id number] Juan Jose Carrillo [id number] Michelle Carrillo Notes Date Note Type Note Provider Name and Address Organization Details Recorded Time 11/28/2023 text/html 6 days of sinus pressure. Hx of sinus infections. Last one 3 months ago. Hx of Asthma. Uses her meds regularly and is not having Asthma symptoms now. ALLEN MILLS MD [address] [place], [address], [place] - [facility] 11/28/2023 19:27:26 OBGyn Episode No OBEpisode recorded.
--- OUTSIDE RECORDS SUMMARY | 2025-02-25 18:36 | XMS_ITS | Patient Health Record ---
Author Organization [facility] Address [address] [place] [address] Care Team Providers Care Electrical Line Splicer Name Role Phone JESUS POLLACK Primary Care Provider Unava Radha Tesfaye Unavailable [phone] Reason For Referral No Information Plan Of Treatment No Information Insurance Providers Payer Name Payer Address Payer Phone Subscriber Number Group Number Insured Name Patient Relationship to Insured Coverage Start Date Coverage End Date [facility] [address] [place] [id number] [phone] [id number] ABBEY SOLIS Self - patient is the insured
--- OUTSIDE RECORDS SUMMARY | 2025-02-25 18:36 | XMS_ITS | Clinical Summary ---
Author Organization [facility] Address [address] [place] [phone] Phone Care Team Providers Care Tuyere Fitter Name Role Phone Physician, No Pcp Primary [...] Plan: Will send culture and treat prn. Surgical History Surgery Date Site/Laterality Comments APPENDECTOMY PROCEDURE: [place] APPENDECTOMY WISDOM TOOTH EXTRACTION N/A PROCEDURE: HISTORICAL [...] Sexual Orientation Not on file Obstetrics History * This document contains information received from the source organization and may not represent a complete record from that organization. Para Term AB IAB SAB Ectopic Multiple Livin g Live Births 3 2 Date Outcome GA Total Labor Labor/2nd/3rd Weight Sex Type Anes PTL Francisca A1 A5 Name Clin Para Para Last Filed Vital Signs Vital Sign Reading [...] Last Done Comments Breast Cancer Screening 1955 Colorectal Cancer Screening: Colonoscopy 1955 Pneumococcal Vaccine: 50+ Years (1 of 1 - PCV) 2004 Zoster Vaccines (1 of 2) 2004 Cholesterol Screening (Lipid Panel) 05/25/2023 Falls Risk Assessment 05/25/2023 Medicare Annual Wellness Visit 05/25/2023 Osteoporosis Screening (Bone Density Screening) 05/25/2023 Social Influencers of Health Screening 05/25/2023 Depression Screening 05/01/2024 COVID-19 Vaccine (3 - 2024-2 6 season) 2024 06/03/2021, 05/06/2021 Influenza Vaccine (#1) 2024 DTaP,Tdap,and Td Vaccines (4 - Td [...] Procedure Name Priority Date/Time Associated Diagnosis Comments HEPATITIS C SCREENING Routine 05/05/2023 from Last 3 Months or Most Recently Relevant to Health Maintenance Results * Hepatitis C Screening (05/05/2023) Hepatitis C Screening abstracted Historical Provider MD HEALTH MAINTENANCE Final Result from Last 3 Months or Most Recently Relevant to Health Maintenance Insurance MEDICARE [facility] Care Teams Tuyere Fitter Relationship Specialty Start Date End Date Physician, No Pcp PCP - General 05/17/24
--- OUTSIDE RECORDS SUMMARY | 2025-02-25 18:36 | XMS_ITS | Patient Health Record ---
[facility] Address [address] [place] [address] Care Team Providers Care Corporate Wellness Coordinator Name Role Phone Yazmin BRANHAM, Adrian Primary Care Provider Toro Garg Unavailable [phone] Allergies Allergen (clinical drug ingredient) Drug/Non Drug [...] Status Risk Notes Problem Acquired hallux valgus (29471759) Hallux valgus (acquired), left foot (M20.12) Active confirmed Problem Acquired hallux valgus (76665656) Hallux valgus (acquired), right foot (M20.11) Active confirmed Plan Of Treatment Pending Test Test Name Order Date X ray : Foot, left 2V 10/11/2017 X ray : Foot, right 2V 10/11/2017 Insurance Providers Payer Name Payer Address Payer Phone Subscriber Number Group Number Insured Name Patient Relationship to Insured Coverage Start Date Coverage End Date Medicare National [employer] [address] [place] [phone] Michelle Carrillo Self - patient is the insured [facility] [address] [place] [address] [phone] Michelle Carrillo Self - patient is the insured Medical (General) History Medical History History ICD Code Measles Mumps Chicken pox chronic sinusitis Surgical History Surgery Date(Month/Year) Tooth extraction 2015
--- OUTSIDE RECORDS SUMMARY | 2025-02-25 18:36 | XMS_ITS | Clinical Summary ---
Author Organization [facility] Address [address] [place] [phone] Phone Care Team Providers Care Superintendent Automotive Name Role Phone Pam Hart MD Primary Care Provide r Allergies Active Allergy Reactions Criticality Noted Date Comments Sulfamethoxazole-Trimethoprim 2022 Sulfa (Sulfonamide Antibiotics) Unknown 11/2011 Medications acetaminophen (TYLENOL) 325 mg tablet Take 650 mg by mouth. 2 Active albuterol 90 mcg/actuation inhaler 3 Active amoxicillin-clavu lanate (AUGMENTIN) 875-125 mg per tablet Take 1 tablet by mouth 2 (two) times a day. 3 Active VITAMIN D3 25 mcg (1,000 unit) capsule Take 1 capsule by mouth every morning. 3 Active docusate sodium (COLACE) 100 MG capsule Take 100 mg by mouth. 2 Active doxycycline monohydrate (ADOXA) 100 MG tablet TAKE 1 TABLET BY MOUTH TWICE A DAY .X14 DAYS 3 Active DUPIXENT PEN 300 mg/2 mL subcutaneous pen 3 Active fexofenadine (CHARLES) 180 MG tablet Take 180 mg by mouth daily. Active nitrofurantoin (MACROBID) 100 MG capsule Take 1 capsule by mouth 2 (two) times a day. 3 Active predniSONE (DELTASONE) 20 MG tablet TAKE 2 TABS DAILY X 5 DAYS, THEN 1 TABLET DAILY X 5 DAYS 3 Active valACYclovir (VALTREX) 500 MG tablet 3 Active Active Problems Problem Noted Date Diagnosed Date Allergic rhinitis 04/12/2023 Chronic sinusitis 04/12/2023 History of severe acute resp iratory syndrome coronavirus 2 (SARS-CoV-2) disease 04/12/2023 Hyperlipidemia 03/08/2012 Malaise and fatigue 03/08/2012 Overview (06/15/2023): RECORDED 03/08/2012 1:18PM BY VICK KAHN MA, ANNOTATION/ADDENDUM Vitamin D deficiency 03/08/2012 Overview (06/15/2023): RECORDED 03/08/2012 1:18PM BY VICK KAHN MA, ANNOTATION/ADDENDUM Immunizations Immunization Administration Dates Next Due COVID-19 (Pre-02/20) Pfizer Vaccine, mRNA, PF ,05/06/2021 Td (adult),2 Lf Tetanus Toxoid, PF, Adsorbed Td, unspecified formulation 01/13/2000 Tdap 07/21/2017,07/10/2007 Social History Tobacco Use Types Packs/Day Years Used Date Smoking Tobacco: Never Smokeless Tobacco: Never Tobacco Cessation:Counseling Given: Not Answered Education Answer Date Recorded Are you interested in more education? Not on priyank e 04/12/2023 Are you concerned about learning? Not on file 04/12/2023 No 04/12/2023 No 04/12/2023 Digital Access Answer Date Recorded No 04/12/2023 No 04/12/2023 Reliable internet access at home? Not on file 04/12/2023 Device with a working camera? Not on file Comments Unknown Sex and Gender Information Value Date Recorded Sex Assigned at Not on file Legal Sex Female 8:10 AM EST Gender Identity Not on file Sexual Orientation Not on file Last Filed Vital Signs Vital Sign Reading Time Taken Comments Blood Pressure 127/81 06/15/2023 10:39 AM EST Pulse 80 06/15/2023 10:50 AM EST Temperature 36.5 C (97.7 F) 06/15/2023 10:39 AM EST Respiratory Rate 18 06/15/2023 10:39 AM EST Oxygen Saturation 97% 06/15/2023 10:39 AM EST Inhaled Oxygen Concentration - - Weight - - Height - - Body Mass Index - - Plan of Treatment Health Maintenance Due Date Last Done Comments LIPID PANEL 1954 DEPRESSION SCREENING 1966 HEPATITIS C SCREENING 1972 MAMMOGRAM 1994 COLOGUARD 1999 COLONOSCOPY 1999 COLORECTAL CANCER SCREENING 1999 FIT TEST 1999 FOBT 1999 SIGMOIDOSCOPY 1999 VIRTUAL COLONOSCOPY 1999 PNEUMOCOCCAL VACCINES (50+ years) (1 of 1 - PCV) 2004 ZOSTER VACCINES (1 of 2) 2004 OSTEOPOROSIS SCREENING INITIAL (ONE-TIME) 2019 INFLUENZA VACCINE (#1) 2024 COVID-19 VACCINE (3 - 2024- season) 2024 06/03/2021, 05/06/2021 Adult Td,Tdap Booster 07/22/2027 07/21/2017 , 07/10/2007, 01/13/2000, Additional history exists RSV VACCINE (1 - 1-dose 75+ series) 2029 SMOKING STATUS SCREENING (Once After 26 Yrs) Completed 06/15/2023 HEPATITIS A VACCINES Aged Out No long er eligible based on patient's age to complete this topic HIB VACCINES Aged Out No longer eligi ble based on patient's age to complete this topic MENINGOCOCCAL VACCINES (ACWY) Aged Out No longer eligible based on patient's age to complete this topic MENINGOCOCCAL VACCINES (B) Aged Out N o longer eligible based on patient's age to complete this topic Medical Devices Not on file Insurance MEDICARE PART A & B [facility] MEDICARE SUPPLEMENT MEDICARE PART A & B [facility] MEDICARE SUPPLEMENT [facility] SU[facility] SUPPLEMENT MEDICARE PART A & B [facility] MEDICARE SUPPLEMENT MEDICARE PART A & B [facility] MEDICARE SUPPLEMENT Care Teams Superintendent Automotive Relationship Specialty Start Date End Date Pam Hart MD [address] [place] [phone] PCP - General Internal Medicine 04/12/23 Additional Source Comments The information contained in this document represents components of the legal health record. It is not the complete legal health record.[facility]
--- OUTSIDE RECORDS SUMMARY | 2025-02-25 18:36 | XMS_ITS | Data Portability ---
Author Organization [facility], Main Office Address [address] [facility] [address] [place] [address] Care Team Providers Care [employer] Industrial [employer] Consultant Name Role Phone ALEXA HEIN OTHER Assessment [...] 8 11:42:[address] referral 2015 016 [facility], [address] [place] [address], [place], [address], 6 14:42:14 Procedures colonoscop y screening (PROC) [...] levofloxac in 500 mg tablet 2015 016 [facility]/Pharmacy #[id number], [address] [place], [address], 8 08:37:53 Medrol (Henry) 4 mg tablets in a dose pack 2015 016 [facility]/Pharmacy #[id number], [address] [place], [address], 8 08:38:01 Patient TargetsNo targets recorded. Patient Instructions Encounter Date Encounter Id Patient Instructions Last Modified By Organization Details Last Modified Time 05/07/2015 [id number] Screening Mammogram [email or web address] Not available 05/07/2015 15:21:42 Colon Cancer Screening [...] patient as part of the visit summary. pt uses only otc meds [email or web address] Not available 05/07/2015 14:34:22 06/10/2015 [id number] I have reviewed the note and agree with the assessment and plan of care. 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 Referral for Sc reening for malignant neoplasm of cervix Annual Exam Referring Physician: Jesus Thurman, Internal Medicine, Encounter Date: 05/07/2015 Customer Support Manager Referral for Screening for malignant neoplasm of [...] Go To The Location Of Their Choice, [facility] 07/21/2017 20:49:33 07/22/19 18 07/21/2017 lipid panel , serum triglyceride 86 mg/dL (<150) Not Available [facility] (Centralized Electronic Ordering - All Locations) Patient Can Go To The Location Of Their Choice, [id number] 07/21/2017 20:49:33 07/22/19 18 07/21/2017 lipid panel , serum HDL chol 70 mg/dL (>39) Not Available [facility] (Centralized Electronic Ordering - All Locations) Patient Can Go To The Location Of Their Choice, [id number] 07/21/2017 20:49:33 07/22/19 18 07/21/2017 lipid panel , serum LDL cholesterol, calculated 155 mg/dL (0-130 ) high Not Available [facility] (Centralized Electronic Ordering - All Locations) Patient Can Go To The Location Of Their Choice, [id number] 07/21/2017 20:49:33 07/22/19 18 07/21/2017 lipid panel , serum non HDL cholesterol (calc) 172 mg/dL (<160) high Not Available [facility] (Centralized Electronic Ordering - All Locations) Patient Can Go To The Location Of Their Choice, [id number] 07/21/2017 20:49:33 Result Notes None recorded. Problems Name Problem SNOMED Code Status Onset Date Resolution Date Notes Provider Name and Address Organization Details Recorded Time Tick bite 49183697 Active Alexa Hein PA-C [address] [facility] [address], [place], [address], [facility] 6 15:53:28 Mencielous al problem 75373616 Active Alexa Hein PA-C [address] [facility] [address], [place], [address], [facility], [place] 6 15:53:28 Acute sinusiti s 57630754 Active Woo Gonsalves MD [address] [facility] [address], [place], [address], [facility], [place] 6 16:44:51 Administ ration of bacteria l and viral vaccine Completed 200711/19/2013 RECORDED 07/10/19 08 2:32PM BY JESUS FRAZIER MD, OFFICE VISIT [facility] [address] [facility] [address], [place], [address], [facility], [place] 6 15:53:28 Administ ration of bacteria l and viral vaccine Completed 200712/09/2013 RECORDED 07/10/19 08 2:32PM BY JESUS FRAZIER MD, OFFICE VISIT [facility] [address] [address], [place], [address], [facility], [place] 6 15:53:28 Allergic rhinitis 78662328 Active 2011 Kathya shay [facility] 8 08:38:48 Patient status finding [id number] Completed 201107/21/2017 RECORDED 03/08/20 12 1:53PM BY VICK BUCKNER MA, OFFICE VISIT Kathya shay [facility] 8 08:38:06 Screenin g for malignan t neoplasm of breast Completed 201111/19/2013 RECORDED 03/08/20 12 1:18PM BY VICK BUCKNER MA, ANNOTATI ON/ADDEN DUM Kathya shay [facility] 8 08:38:30 Chronic sinusiti s 28292015 Active 2011 Kathya shay [facility] 8 08:38:38 Adult health examinat ion Completed 201107/21/2017 RECORDED 03/08/20 12 1:54PM BY VICK BUCKNER MA, OFFICE VISIT Kathya shay, [facility] 8 08:38:33 Hyperlip idemia 54938076 Active 2011 Kathya shay, [facility] 8 08:38:42 Malaise and fatigue 022475228 Completed 201111/19/2013 RECORDED 03/08/20 12 1:18PM BY VICK BUCKNER MA, TED ON/ADDEN DUM Alexa Hein PA-C [address], [place], [address], [place] [facility] 6 15:53:28 Menopaus al symptom 47174652 Active 2011 Kathya shay, [facility] 8 08:38:27 Influenz a vaccine needed 46604050241 06 Completed 201111/19/2013 RECORDED 03/08/20 12 2:02PM BY VICK BUCKNER MA, OFFICE VISIT Alexa Hein PA-C [address] [facility] [address], [place], [address], [facility], [place] 6 15:53:28 Adult health examinat ion Completed 201111/19/2013 RECORDED 03/08/20 12 1:18PM BY VICK BUCKNER MA, TED ON/ADDEN DUM Kathya shay [facility] 8 08:38:33 Miscarri age 86027583 Active 2011 Kathya shay [facility] 8 08:38:22 Urinary tract infectio us disease 48722859 Active 2011 Kathya shay [facility] 8 08:38:52 Vitamin D deficien cy 01660817 Completed 201111/19/2013 RECORDED 03/08/20 12 1:18PM BY VICK BUCKNER MA, ANNOTATI ON/ADDEN DUM Alexa Hein PA-C [address], [place], [address], [facility], [place] 6 15:53:28 Screenin g for malignan t neoplasm of breast Completed 201112/09/2013 RECORDED 03/08/20 12 1:18PM BY VICK BUCKNER MA, ANNOTATI ON/ADDEN DUM Kathya Navarrete MA null, [facility] 8 08:38:30 Malaise and fatigue 245197841 Completed 201112/09/2013 RECORDED 03/08/20 12 1:18PM BY VICK BUCKNER MA, ANNOTATI ON/ADDEN DUM Alexa Hein PA-C [address], [place], [address], [facility], [place] 6 15:53:28 Influenz a vaccine needed 92068818052 06 Completed 201112/09/2013 RECORDED 03/08/20 12 2:02PM BY VICK BUCKNER MA, OFFICE VISIT [facility] [address], [place], [address], [facility], [place] 6 15:53:28 Vitamin D deficien cy 93205049 Completed 201112/09/2013 RECORDED 03/08/20 12 1:18PM BY VICK BUCKNER MA, ANNOTATI ON/ADDEN DUM Alexa Hein TN-C [address], [place], [address], [facility], [place] 6 15:53:28 Screenin g for malignan t neoplasm of breast Completed 201207/21/2017 RECORDED 02/28/20 13 12:48PM BY MICKIE JACKSON MA, PHONE ENCOUNTE R Kathya Navarrete MA null, [facility] 8 08:38:30 Screenin g for malignan t neoplasm of cervix Completed 201207/21/2017 RECORDED 02/28/20 13 12:48PM BY MICKIE JACKSON MA, PHONE ENCOUNTE R [facility] 8 08:38:15 Problem Notes None recorded. Procedures Surgical History Date Name Laterality Status Provider Name and Address Organization Details Recorded Time Breast Surgery completed Kathya Navarrete MA [facility] 07/21/2017 10:51:58 Hymenotomy completed Kathya Navarrete MA [facility] 07/21/2017 10:59:55 Imaging Results None recorded. Procedure Notes None recorded. Medical Equipment None Reported. Allergies Allergen ID Allergen Name Allergen Category Reaction Reaction Severity Criticality Documentation Date Start Date Code Code System Note Provider Name and Address Organization Details Recorded Time 70707 Substance with sulfonami de structure and antibacte rial mechanism of action (substanc e) medicatio n Not available Not available Not available 07/08/20142011 57166 8003 SNOMED REACT ION: BACTR IM, FACIA L RASH Yomaira shay, [facility] 5 11:00:53 Medications Name Sig Start [...] Available Vitals Date Recorded Body height Body weight Body mass index (BMI) Body temperature Heart rate Oxygen saturation Oxygen saturation in Arterial blood by Pulse oximetry Systolic And Diastolic Provider Name and Address Organization Details Last Updated DateTime 6 158.115 cm 44620.2 54310 g 19.8 kg/m2 99.1 [degF] 83 /min 97 % 97 % 120/68 mm[Hg] Kathya Navarrete MA [facility] 6 13:54:17 Date Recorded Body height Body weight Body mass index (BMI) Heart rate Oxygen saturation Oxygen saturation in Arterial blood by Pulse oximetry Body temperature Systolic And Diastolic Provider Name and Address Organization Details Last Updated DateTime 6 158.115 cm 11871.4 44583 g 19.7 kg/m2 83 /min 98 % 98 % 97.6 [degF] 117/76 mm[Hg] Kathya Navarrete MA [facility] 6 15:23:44 Date Recorded Body height Body mass index (BMI) Body weight Heart rate Oxygen saturation Oxygen saturation in Arterial blood by Pulse oximetry Body temperature Systolic And Diastolic Provider Name and Address Organization Details Last Updated DateTime 8 158.12 cm 20.4 kg/m2 81147.1 5 g 82 /min 100 % 100 % 99 [degF] 118/77 mm[Hg] Kathya aNvarrete MA [facility] 8 10:59:26 Social History Question Answer Notes LastModified by Organizat ion Details LastModified Time Tobacco Smoking Status [facility] 13:49:53 Is Blood Transfusion Acceptable In [...] 05/07/2015 Are you able to care for yourself independently? Yes Information not available 05/07/2015 What is your exercise level? Heavy Information not available 07/21/2017 Mental Status None recorded. Family History Relationship Description Onset Age of this Age Resolved Age Notes LastModified by Organization Details LastModified Time Father Malignant neoplasm of lung 85/dem entia/ alive 2017 [email or web address] [...] Time Tdap 8 completed Not Available [facility] 05/18/2019 02:21:47 Td (adult), 2 Lf tetanus toxoid, preservative free, adsorbed 0 completed Not Available [facility] 11/12/2013 14:12:40 Tdap 8 completed Not Available [facility] 11/12/2013 14:12:40 Past Encounters Encounter ID Performer Location Encounter Start Date Encounter Closed Date Diagnosis/Indication Diagnosis SNOMED-CT Code Diagnosis ICD10 Code Diagnosis IMO Codes Diagnosis Note [id number] autoEComm erce [address] [facility] [place] [address] 07/10/2007 00:00:00 [id number] autoEComm erce [address] [facility] [place] [address] 03/08/2012 00:00:00 [id number] autoEComm erce [address] [facility] [place] [address] 03/08/2012 00:00:00 [id number] autoEComm erce [address] [facility] [place] [address] 03/08/2012 00:00:00 [id number] Jesus glass MD Main Office [address] [place] [address] 05/07/2015 13:39:28 05/07/2015 14:51:38 Adult health examination 021173249 Z00.00 Screening for malignant neoplasm of colon 651188682 Z12.11 Screening for malignant neoplasm of breast 573127533 Z12.39 Screening for malignant neoplasm of cervix 880044102 Z12.4 Menopausal problem 40686 000 N95.1 [id number] Alexa Hein PA-C Main Office [address] [facility] [address] [place] [address] 06/10/2015 15:08:58 06/10/2015 15:55:41 Acute sinusitis 77767823 J01.90 Persistent sinus symptoms and sinusitis. Start Levofloxac in 500 mg qd for 1 week. Medrol dose pack as dir. . Continue Nasocort AQ and nasal saline as well as MUcinex. If recurrent, call Dr. John ENT for f/u. [id number] Jesus glass MD Main Office [address] [facility] [address] [facility] [address] 07/21/2017 10:39:58 07/21/2017 11:42:59 Adult health examination 947252361 Z00.00 Screening for malignant neoplasm of breast 006240586 Z12.39 Screening for malignant neoplasm of colon 290072565 Z12.11 Administra tion of viral vaccine 05044616 Z23 Health Concerns Section Related Observation LastModified by Organization Detai ls LastModified Time None Recorded Concern Status LastModified by Organization Details LastModified Time None Recorded Advance Directives Directive None Recorded Payers Insurance Date Sequence Insurance Name Policy Number Policy Shoemaker Covered Member ID Shoemaker Member ID Guarantor Name 07/21/2017 1 [facility] [id number] Michelle Carrillo [id number] Michelle Carrillo Notes Date Note Type Note Provider Name and Address Organization Details Recorded Time 05/07/2015 text/html Generic HPI TemplateReported by PatientHPIFor context, (pt aware of benefits for colon, breast cancer screening and routine cervical cancer/pap smears . she knows benefits of vaccines/ checking lipids etc. but she maintains a consistent patter of declining any and all measures. we discussed again today and she will consider it as she has considered it in past.). Jesus shay MA [facility] 05/07/2015 14:53:21 06/10/2015 text/html ROS as noted in the HPI 60 year old female c/o 3 1/2 week onset of sinus congestion which is getting worse. Pt. went to [facility] [place] [place] twice. Treated with Z-pack and inhaler which [...] they are thick green. Woo Gonsalves MD [address] [address], [place], [address], [facility], [place] 06/10/2015 16:44:53 07/21/2017 text/html Generic HPI TemplateReported by Patient Jeuss Laurie shay, [facility] 07/21/2017 12:30:28 OBGyn Episode No OBEpisode recorded.
== END 2025-02-25 15:15 | disposition home or self-care (01) ==
PROVIDERS: PCP Internal Medicine; Visit Provider Advanced Practice Midwife
DX: Z01.419 Encounter for gynecological examination (general) (routine) without abnormal findings (principal)
CPT/HCPCS: G0101; Q0091

== ENCOUNTER 2025-02-25 14:59 | Outpatient (REF) | payer MEDICARE, OTHER, SELFPAY | END 2025-02-25 15:00 | disposition home or self-care (01) | LOC: HO.LAB 14:59 | PROVIDERS: Visit Provider Advanced Practice Midwife | DX: Z13.89 Encounter for screening for other disorder (principal) ==

== ENCOUNTER 2025-04-09 14:23 | Outpatient (REF) | payer MEDICARE, OTHER, SELFPAY ==
--- OUTSIDE RECORDS SUMMARY | 2025-04-09 23:33 | XMS_ITS | Data Portability ---
Author Organization [facility], Main Office Address [address] [facility] [address] [place] [address] Care Team Providers Care Director Financial Systems Name Role Phone ALEXA HEIN OTHER Assessment [...] 8 11:42:[address] referral 2015 016 [facility], [address] [place] [address], [place], [address], 6 14:42:14 Procedures colonoscop y screening (PROC) [...] levofloxac in 500 mg tablet 2015 016 [facility]/Pharmacy #0838, [address] [place], [address], 8 08:37:53 Medrol ([place]) 4 mg tablets in a dose pack 2015 [facility]16 [facility] [address] [place], [address], 8 08:38:01 Patient TargetsNo targets recorded. Patient Instructions Encounter Date Encounter Id Patient Instructions Last Modified By Organization Details Last Modified Time 05/07/2015 [id number] Screening Mammogram [email or web address] Not available 05/07/2015 15:21:42 Colon Cancer Screening VMA [email or web address] Not available 05/07/2015 14:47:03 Cervical Cancer Screening [email or web address] Not available 05/07/2015 15:21:42 Medications were reviewed at this visit and reconciled. Changes in the active medications are reflected in the current medication list and discussed with patient (or caregiver) with instructions for follow up as needed. Printed medication list provided to the patient as part of the visit summary. pt uses only otc meds mdalessandro Not available 05/07/2015 14:34:22 06/10/2015 [id number] I have reviewed the note and agree with the assessment and plan of care. dontrell Not available 06/10/2015 16:44:52 07/21/2017 [id number] learning about colon cancer [email or web address] Not available 07/21/2017 11:25:01 Reason for Referral Spray Ii Painter Referral for Sc reening for malignant neoplasm of cervix Annual Exam Referring Physician: Jesus Thurman, Internal Medicine, Encounter Date: 05/07/2015 Government Relations Manager Referral for Screening for malignant neoplasm [...] Go To The Location Of Their Choice, [facility] 07/21/2017 20:49:33 07/22/19 18 07/21/2017 lipid panel , serum triglyceride 86 mg/dL (<150) Not Available [facility] (Centralized Electronic Ordering - All Locations) Patient Can Go To The Location Of Their Choice, [id number] 07/21/2017 20:49:33 07/22/19 18 07/21/2017 lipid panel , serum HDL chol 70 mg/dL (>39) Not Available [facility] (Centralized Electronic Ordering - All Locations) Patient Can Go To The Location Of Their Choice, [id number] 07/21/2017 20:49:33 07/22/19 18 07/21/2017 lipid panel , serum LDL cholesterol, calculated 155 mg/dL (0-130 ) high Not Available [facility] (Centralized Electronic Ordering - All Locations) Patient Can Go To The Location Of Their Choice, [id number] 07/21/2017 20:49:33 07/22/19 18 07/21/2017 lipid panel , serum non HDL cholesterol (calc) 172 mg/dL (<160) high Not Available [facility] (Centralized Electronic Ordering - All Locations) Patient Can Go To The Location Of Their Choice, [id number] 07/21/2017 20:49:33 Result Notes None recorded. Problems Name Problem SNOMED Code Status Onset Date Resolution Date Notes Provider Name and Address Organization Details Recorded Time Tick bite 00942147 Active Alexa Hein PA-C [address] [facility] [address], [place], [address], [facility] 6 15:53:28 Mencielous al problem 04589980 Active Alexa Hein PA-C [address] [facility] [address], [place], [address], [facility] 6 15:53:28 Acute sinusiti s 84664823 Active Woo Gonsalves MD [address] [facility] [address], [place], [address], [facility] 6 16:44:51 Administ ration of bacteria l and viral vaccine Completed 200711/19/2013 RECORDED 07/10/19 08 2:32PM BY JESUS FRAZIER MD, OFFICE VISIT [facility] [address] [facility] [address], [facility] [place], [address], [facility] 6 15:53:28 Administ ration of bacteria l and viral vaccine Completed 200712/09/2013 RECORDED 07/10/19 08 2:32PM BY JESUS FRAZIER MD, OFFICE VISIT [facility] [address] [address], [facility] [place], [address], [facility] 6 15:53:28 Allergic rhinitis 17313557 Active 2011 Kathya shay [facility] 8 08:38:48 Patient status finding 071738405 Completed 201107/21/2017 RECORDED 03/08/20 12 1:53PM BY VICK BUCKNER MA, OFFICE VISIT Kathya shay [facility] 8 08:38:06 Screenin g for malignan t neoplasm of breast Completed 201111/19/2013 RECORDED 03/08/20 12 1:18PM BY VICK BUCKNER MA, ANNOTATI ON/ADDEN DUM Kathya shay [facility] 8 08:38:30 Chronic sinusiti s 29877075 Active 2011 Kathya shay [facility] 8 08:38:38 Adult health examinat ion Completed 201107/21/2017 RECORDED 03/08/20 12 1:54PM BY VICK BUCKNER MA, OFFICE VISIT Kathya shay, [facility] 8 08:38:33 Hyperlip idemia 03343894 Active 2011 Kathya shay, [facility] 8 08:38:42 Malaise and fatigue 683959994 Completed 201111/19/2013 RECORDED 03/08/20 12 1:18PM BY VICK BUCKNER MA, TED ON/ADDEN DUM Alexa Hein PA-C [address], [place], [address], [place] [facility] 6 15:53:28 Menopaus al symptom 13824248 Active 2011 Kathya shay, [facility] 8 08:38:27 Influenz a vaccine needed 45864361033 06 Completed 201111/19/2013 RECORDED 03/08/20 12 2:02PM BY VICK BUCKNER MA, OFFICE VISIT Alexa Hein PA-C [address] [facility] [address], [place], [address], [facility] 6 15:53:28 Adult health examinat ion Completed 201111/19/2013 RECORDED 03/08/20 12 1:18PM BY VICK BUCKNER MA, TED ON/ADDEN DUM Kathya shay [facility] 8 08:38:33 Miscarri age 19901412 Active 2011 Kathya shay [facility] 8 08:38:22 Urinary tract infectio us disease 09630948 Active 2011 Kathya shay [facility] 8 08:38:52 Vitamin D deficien cy 05503243 Completed 201111/19/2013 RECORDED 03/08/20 12 1:18PM BY VICK BUCKNER MA, ANNOTATI ON/ADDEN DUM Alexa Hein PA-C [address], [place], [address], [facility] 6 15:53:28 Screenin g for malignan t neoplasm of breast Completed 201112/09/2013 RECORDED 03/08/20 12 1:18PM BY VICK BUCKNER MA, ANNOTATI ON/ADDEN DUM Kathya Navarrete MA null, [facility] 8 08:38:30 Malaise and fatigue 924166429 Completed 201112/09/2013 RECORDED 03/08/20 12 1:18PM BY VICK BUCKNER MA, ANNOTATI ON/ADDEN DUM Alexa Hein PA-C [address], [place], [address], [facility] 6 15:53:28 Influenz a vaccine needed 45994910388 06 Completed 201112/09/2013 RECORDED 03/08/20 12 2:02PM BY VICK BUCKNER MA, OFFICE VISIT Alexa [facility] [address], [place], [address], [facility] 6 15:53:28 Vitamin D deficien cy 90225361 Completed 201112/09/2013 RECORDED 03/08/20 12 1:18PM BY VICK BUCKNER MA, ANNOTATI ON/ADDEN DUM Alexa Hein MI-C [address], [place], [address], [facility] 6 15:53:28 Screenin g for malignan t neoplasm of breast Completed 201207/21/2017 RECORDED 02/28/20 13 12:48PM BY MICKIE JACKSON MA, PHONE ENCOUNTE R Kathya Navarrete MA null, [facility] 8 08:38:30 Screenin g for malignan t neoplasm of cervix Completed 201207/21/2017 RECORDED 02/28/20 13 12:48PM BY MICKIE JACKSON MA, PHONE ENCOUNTE R [facility] 8 08:38:15 Problem Notes None recorded. Procedures Surgical History Date Name Laterality Status Provider Name and Address Organization Details Recorded Time Breast Surgery completed Kathya Navarrete MA [facility] 07/21/2017 10:51:58 Hymenotomy completed Kathya Navarrete MA [facility] 07/21/2017 10:59:55 Imaging Results None recorded. Procedure Notes None recorded. Medical Equipment None Reported. Allergies Allergen ID Allergen Name Allergen Category Reaction Reaction Severity Criticality Documentation Date Start Date Code Code System Note Provider Name and Address Organization Details Recorded Time 33851 Substance with sulfonami de structure and antibacte rial mechanism of action (substanc e) medicatio n Not available Not available Not available 07/08/20142011 58174 8003 SNOMED REACT ION: BACTR IM, FACIA L RASH Yomaira shya, [facility] 5 11:00:53 Medications Name Sig Start [...] Details Last Updated DateTime 6 158.115 cm 54663.2 18077 g 19.8 kg/m2 99.1 [degF] 83 /min 97 % 120/68 mm[Hg] Kathya Navarrete MA [facility] 6 13:54:17 Date Recorded Body height Body weight Body mass index (BMI) Heart rate Oxygen saturation Body temperature Systolic And Diastolic Provider Name and Address Organization Details Last Updated DateTime 6 158.115 cm 41957.4 41771 g 19.7 kg/m2 83 /min 98 % 97.6 [degF] 117/76 mm[Hg] Kathya [facility]te [facility] 6 15:23:44 Date Recorded Body height Body mass index (BMI) Body weight Heart rate Oxygen saturation Body temperature Systolic And Diastolic Provider Name and Address Organization Details Last Updated DateTime 8 158.12 cm 20.4 kg/m2 68637.1 5 g 82 /min 100 % 99 [degF] 118/77 mm[Hg] Kath[facility] 8 10:59:26 Social History Question Answer Notes LastModified by Organizat ion Details LastModified Time Tobacco Smoking Status Former Smoker Kathya shay [facility] 05/07/2015 13:49:53 Is Blood Transfusion Acceptable [...] Recorded Time Tdap 8 completed Not Available [facility] 05/18/2019 02:21:47 Td (adult), 2 Lf tetanus toxoid, preservative free, adsorbed 0 completed Not Available [facility] 11/12/2013 14:12:40 Tdap 8 completed Not Available [facility] 11/12/2013 14:12:40 Past Encounters Encounter ID Performer Location Encounter Start Date Encounter Closed Date Diagnosis/Indication Diagnosis SNOMED-CT Code Diagnosis ICD10 Code Diagnosis IMO Codes Diagnosis Note [id number] autoEComm erce [address] [facility] [address] [place] [address] 07/10/2007 00:00:00 [id number] autoEComm erce [address] [facility] [place] [address] 03/08/2012 00:00:00 [id number] autoEComm erce [address] [facility] [place] [address] 03/08/2012 00:00:00 [id number] autoEComm erce [address] [facility] [address] [place] [address] 03/08/2012 00:00:00 [id number] Jesus glass MD Main Office [address] [facility] [address] [place] [address] 05/07/2015 13:39:28 05/07/2015 14:51:38 Adult health examination 330912103 Z00.00 Screening for malignant neoplasm of colon 354381430 Z12.11 Screening for malignant neoplasm of breast 962768584 Z12.39 Screening for malignant neoplasm of cervix 031588101 Z12.4 Menopausal problem 49487 000 N95.1 [id number] Alexa Hein PA-C Main Office [address] [facility] [address] [place] [address] 06/10/2015 15:08:58 06/10/2015 15:55:41 Acute sinusitis 22467134 J01.90 Persistent sinus symptoms and sinusitis. Start Levofloxac in 500 mg qd for 1 week. Medrol dose pack as dir. . Continue Nasocort AQ and nasal saline as well as MUcinex. If recurrent, call Dr. John ENT for f/u. [id number] Jesus glass MD Main Office [address] [facility] [address] [facility] [address] 07/21/2017 10:39:58 07/21/2017 11:42:59 Adult health examination 470480005 Z00.00 Screening for malignant neoplasm of breast 270347054 Z12.39 Screening for malignant neoplasm of colon 061093335 Z12.11 Administra tion of viral vaccine 58757479 Z23 Health Concerns Section Related Observation LastModified by Organization Detai ls LastModified Time None Recorded Concern Status LastModified by Organization Details LastModified Time None Recorded Advance Directives Directive None Recorded Payers Insurance Date Sequence Insurance Name Policy Number Policy Shoemaker Covered Member ID Shoemaker Member ID Guarantor Name 07/21/2017 1 [facility] [id number] Michelle Carrillo [id number] Michelle Carrillo Notes Date Note Type Note [...] it in past.). Jesus shay [place] - [facility] 05/07/2015 14:53:21 06/10/2015 text/html ROS as noted in the HPI 60 year old female c/o 3 1/2 week onset of sinus congestion which is getting worse. Pt. went to [facility] twice. Treated with Z-pack and inhaler which [...] they are thick green. Woo Gonsalves MD [address] [facility] [address], [place], [address], [facility] 06/10/2015 16:44:53 07/21/2017 text/html Generic HPI TemplateReported by Patient Jesus HillGreyson shay, [facility] 07/21/2017 12:30:28 OBGyn Episode No OBEpisode recorded.
--- OUTSIDE RECORDS SUMMARY | 2025-04-09 23:33 | XMS_ITS | Data Portability ---
Author Organization [facility] [address] Address [address] [place] [address] Assessment No assessment recorded. Plan of Treatment Reminders Order Date Submit Date Provider Last Modified By Organization Details Last Modified Time Details Appointments None recorded. Lab SARS CoV 2 (COVID-19) Ag, QL, IA, upper respiratory specimen 2023 024 [email or web address] [address] [facility] [address], [address] [place], [address], 19:26:41 Referral None recorded. Procedures None recorded. Surgeries None recorded. Imaging None recorded. Medication Orders prednisone 20 mg tablet 2023 024 [facility]/Pharmacy #0838, [address] [place], [address], 4 19:26:42 Augmentin 875 mg-125 mg tablet 2023 024 [facility]/Pharmacy #0838, [address] [place], [address], 4 19:26:43 Patient TargetsNo targets recorded. Patient Instructions Encounter Date Encounter Id Patient Instructions Last Modified By Organization Details Last Modified Time 11/28/2023 [id number] Follow-up with your doctor if no improvement in 1 week. Seek Emergency Medical evaluation for any worsening symptoms. [email or web address] Not available 11/28/2023 19:26:37 Reason for Referral None Reported. Results Created Date Observation Date Name Description Value Unit Range Abnormal Flag Note LastModifiedBy Organization Detail LastModifiedTime 11/28/19 24 11/28/2023 SARS CoV 2 (COVI D-19) Ag, QL, IA, upper respi rator y speci men Unknown Analyte negati ve Not Available [address] [place], [address], 11/28/2023 19:01:45 Result Notes None recorded. Problems Name Problem SNOMED Code Status Onset Date Resolution Date Notes Provider Name and Address Organization Details Recorded Time Asthma 216637833 Active DIONY MINEO null, [place] - [facility] 4 19:00:05 Sinusitis 54257253 Active DIONY MINEO null, [place] - [facility] 19:00:15 Problem Notes None recorded. Medical Equipment None Reported. Allergies Allergen ID Allergen Name Allergen Category Reaction Reaction Severity Criticality Documentation Date Start Date Code Code System Note Provider Name and Address Organization Details Recorded Time 020126 Bactrim medicatio n Not available Not available Not available 11/28/2023 65747 9 RxNorm DIONY MINEO null, PA - [...] mass index (BMI) Body weight Oxygen saturation Heart rate Respiratory rate Body temperature Systolic And Diastolic Provider Name and Address Organization Details Last Updated DateTime 4 157.48 cm 19 kg/m2 74549.6 1 g 98 % 88 /min 18 /min 98.2 [...] ICD10 Code Diagnosis IMO Codes Diagnosis Note [id number] [address] [place] [address] 12/15/2019 15:30:24 12/15/2019 15:59:14 [id number] [address] [place] [address] 07/05/2018 14:08:24 07/05/2018 15:02:09 [id number] [address] [place] [address] 07/16/2018 18:17:14 07/16/2018 19:10:17 [id number] [address] [place] [address] 02/09/2017 18:53:59 02/09/2017 19:35:47 [id number] [address] [address] [place] [address] 05/18/2015 11:53:52 05/18/2015 12:28:11 [id number] [address] [place] [address] 05/25/2020 18:50:55 05/25/2020 19:29:04 [id number] [address] [place] [address] 11/13/2016 17:56:36 11/13/2016 18:27:40 [id number] [address] [place] [address] 05/21/2015 10:43:28 05/21/2015 11:47:29 [id number] [address] [place] [address] 05/19/2019 15:47:25 05/19/2019 16:02:47 [id number] [address] [address] [place] [address] 08/02/2016 19:01:00 08/02/2016 19:56:35 [id number] [facility] [address] [address] [place] [address] 11/15/2017 19:27:57 11/15/2017 19:39:43 [id number] ALLEN MILLS MD [address] [address] 11/28/2023 18:46:44 11/28/2023 19:27:50 Dry cough 67522137 R05.9 CoughBlack Elderberry Syrup:1-2 tsp 2-3 times a day for 5 days as needed for coughing.S ambucol Black Elderberry Original Syrup (available at [employer] )Jannet Herbs Black Elderberry Syrup, 5.4-Ounce Bottle (available at [employer] or [employer]) Use a cool mist humidifier in the room that you sleep to add moisture to the air, which should soothe the airways and help loosen any mucus that may be present. Acute maxi llary sinusitis 02764009 J01.00 Health Concerns Section Related Observation LastModified by Organization Detai ls LastModified Time None Recorded Concern Status LastModified by Organization Details LastModified Time None Recorded Advance Directives Directive None Recorded Payers Insurance Date Sequence Insurance Name Policy Number Policy Shoemaker Covered Member ID Shoemaker Member ID Guarantor Name 11/28/2023 1 MEDICARE B-KS: [employer] Michelle Carrillo [id number] Michelle Carrillo 11/28/2023 2 [facility] [place]MNITY[place] [id number] Juan Jose Carrillo [id number] Michelle Carrillo Notes Date Note Type Note Provider Name and Address Organization Details Recorded Time 11/28/2023 text/html 6 days of sinus pressure. Hx of sinus infections. Last one 3 months ago. Hx of Asthma. Uses her meds regularly and is not having Asthma symptoms now. ALLEN MILLS MD [facility] [place], [address], [place] - [facility] 11/28/2023 19:27:26 OBGyn Episode No OBEpisode recorded.
== END 2025-04-09 14:24 | disposition home or self-care (01) ==
LOC: HO.LNP 14:23
PROVIDERS: PCP Internal Medicine; Visit Provider Obstetrics & Gynecology
DX: R87.612 Low grade squamous intraepithelial lesion on cytologic smear of cervix (LGSIL) (principal)
CPT/HCPCS: 57454; 88305; 88341; 88342

== ENCOUNTER 2025-04-09 14:23 | Outpatient (AMB) | payer MEDICARE, OTHER, SELFPAY ==
--- OUTSIDE RECORDS SUMMARY | 2023-11-21 05:30 | XMS_ITS ---
Author Organization [facility] Address [address] [place] [address] Care Team Providers Care Records Management Specialist Name Role Phone Yazmin BRANHAM, Adrian Primary Care Provider Unav ailable Toro Raman Unavailable [phone] Encounters Encounter Location Date Provider Diagnosis [facility] [address] [place] [id number] 11/21/2023 Toro Raman Plan Of Treatment No Information Progress Notes * Michelle CARRILLO ADOB:1955 (70 yo F)Acc No.[id number]:11/21/2023 Progress Notes Patient: Michelle QUILES Provider: Margi Hartman DPM :1955 A ge:68 Y S ex:Female Date:11/21/2023 Address:[address] [place] [address], [id number] Pcp:Adrian Arce MD Subjective: * Chief Complaints: * * Medical History: Objective: * Vitals: Assessment: Plan: * Treatment: * Images: * The named appointment provid er may or may not be the originator of this progress note, and it is not deemed complete until electronically signed by the appointment provider. Sign off status: Pending * Provider: Margi Hartman DPM Date: 0 11/21/2023 Generated for Maria Doloresi twyla/Farafaelg/eTransmitting on: 1 06/10/2024 10:37 PM EST
[2025-04-09 14:25] VITALS: BP 120/62; BMI 19.9
--- NOTE | 2025-04-09 14:25 | MHC.OFFVIS ---
Vital Signs 04/09/25 14:25 Height 5 ft 2 in Weight 109 lb BMI 19.9 BP 120/62 Intake Visit Reasons: Colposcopy Maintenance Controller Required: No Information Interpreted: non-clinical & clinical [employer]: [employer] Present (Marleen Clinton HANS) Accompanied by: Self / Same As Patient Allergies sulfamethoxazole (From Bactrim) Allergy (Unknown, Verified 04/09/25 14:32) Unknown trimethoprim (From Bactrim) Allergy (Unknown, Verified 04/09/25 14:32) Unknown Bactrum Allergy (Severe, Uncoded 04/09/25 14:32) Rash Seasonal Allergy (Severe, Uncoded 04/09/25 14:32) Rash Post menopausal: Yes HPI Comments Details: Presenting referred from Yadi Rogers regarding abnormal Pap smear done on 02/26/2025 showing the following: General Category: Epithelial cell abnormality. Adequacy: Endocervical component present. Interpretation: Low grade squamous intraepithelial lesion (LSIL), with few cells that raise the possibility of a high grade/moderate squamous intraepithelial lesion. Atrophy Abundant acute inflammation HPV High Risk: Positive HPV Genotyping 16: Positive HPV Genotyping 18: Negative [facility] Medical History Genital herpes Eczema Sinusitis Asthma Bronchitis, mucopurulent recurrent Allergic urticaria Reactive airway disease Murmur Tachycardia Post-COVID syndrome Bronchitis COVID-19 Surgical History History of appendectomy Family History Mother Diabetes Lymphoma Father Lung cancer Alzheimer disease Maternal Grandmother Congestive heart failure Maternal Grandfather Diabetes Social History Household Members: None Housing: House Alcohol intake: never Patient Tobacco Use Status: Former Tobacco user Tobacco use type: Cigarette Years Smoked: 20+ years e-Cigarette/Vaping Use: Never Used Current occupational status: employed 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 We thoroughly discussed the procedure itself, including its details, alternatives, and all associated risks. This included but not limited to the following complications such as bleeding, infection, and injury to the vagina, bladder, and vessels, as well as the potential need for transfusion with all its associated risks. Subsequently, the patient sign the consent. Pap smear result: LSIL can not exclude high-grade LAURA, HPV 16 positive Procedure: During the procedure, the following steps were performed: A speculum was inserted, and acetic acid was applied. Colposcopy was conducted, allowing visualization of the transformation zone. Acetowhite lesions were identified at the 5+ 7+ 11+ 12+ 1 o'clock position. Cervical biopsies were obtained from the 5+ 7+ 11+ 12+ o'clock position, followed by an endocervical curettage (ECC). Vaginoscopy of the upper vagina revealed no evidence of aceto-white lesions. Hemostasis was achieved using Monsel solution, and the patient tolerated the procedure well. Post-Procedure Instructions: The patient was advised to promptly contact the office or the after hours answering service or go to the emergency room if experiencing a temperature exceeding 100.4?F, abdominal pain, nausea/vomiting, or bleeding. Additionally, the patient was instructed to abstain from vaginal intercourse and bathtub use. The patient confirmed understanding of these instructions. Discharge Instructions: The patient was instructed to schedule a follow-up appointment in 2 weeks for further evaluation and management. Please note that this note was generated using a voice recognition program, and errors may have occurred during bowling ball finisher. 12175-Bctovnhht of cervix including upper vagina with biopsy and ECC Procedure code (CPT) selection complete Assessment & Plan Assessment & Plan (1) LGSIL on Pap smear of cervix: Comment: Can not exclude HGSIL HPV 16 positive Code(s): R87.612 - Low grade squamous intraepithelial lesion on cytologic smear of cervix (LGSIL) Category: Medical Plan: Discussed with the patient the result of her abnormal pap, its significance, risk of progression, persistence, and regression. the false positive/negative rate of a Pap smear as a screening test in detecting cervical cancer and the indication for a diagnostic test -colposcopy, biopsy, endocervical curettage. The patient verbalized understanding and agreed with the plan, all questions answered. Colposcopy, biopsy /ECC done, see procedure note Orders: Orders AMB Colposcopy Today R87.612 - Low grade squamous intraepithelial lesion on cytologic smear of cervix (LGSIL) Coding Level of Care Code Procedure Only Diagnoses LGSIL on Pap smear of cervix R87.612 CPT Codes Colposcopy - CPT: 04942-Ubxofvnsg of cervix including upper vagina with biopsy and ECC ([id number])
--- OUTSIDE RECORDS SUMMARY | 2025-04-09 22:36 | XMS_ITS | Clinical Summary ---
Author Organization [facility] Address [address] [place] [address] Phone Care Team Providers Care Legal Research Analyst Name Role Phone Physician, No Pcp Primary [...] History Surgery Date Site/Laterality Comments APPENDECTOMY PROCEDURE: [place] APPENDECTOMY WISDOM TOOTH EXTRACTION N/A PROCEDURE: HISTORICAL [...] Recently Relevant to Health Maintenance Insurance MEDICARE [facility] Care Teams Legal Research Analyst Relationship Specialty Start Date End Date Physician, No Pcp PCP - General 05/17/24
--- OUTSIDE RECORDS SUMMARY | 2025-04-09 22:36 | XMS_ITS | Data Portability ---
Author Organization [facility], Main Office Address [address] [facility] [address] [place] [address] Care Team Providers Care Telephone Exchange Operator Name Role Phone ALEXA HEIN OTHER Assessment [...] gynecologi st referral 2015 016 [facility], [address] [place] [address], [place], [address], 6 14:42:14 Procedures colonoscop y screening (PROC) [...] levofloxac in 500 mg tablet 2015 016 [facility] #[id number], [address] [place], [address], 8 08:37:53 Medrol (Henry) 4 mg tablets in a dose pack 2015 016 [id number] [address] [place], [address], 8 08:38:01 Patient TargetsNo targets recorded. Patient Instructions Encounter Date Encounter Id Patient Instructions Last Modified By Organization Details Last Modified Time 05/07/2015 [id number] Screening Mammogram [email or web address] Not available 05/07/2015 15:21:42 Colon Cancer Screening VMA [email or web address] Not available 05/07/2015 14:47:03 Cervical Cancer Screening [email or web address] Not available 05/07/2015 15:21:42 Medications were reviewed at this visit and reconciled. Changes in the active medications are reflected in the current medication list and discussed with patient (or caregiver) with instructions for follow up as needed. Printed medication list provided to the patient as part of the visit summary. pt uses only otc meds [email or web address] Not available 05/07/2015 14:34:22 06/10/2015 [id number] I have reviewed the note and agree with the assessment and plan of care. dontrell Not available 06/10/2015 16:44:52 07/21/2017 [id number] learning about colon cancer [email or web address] Not available 07/21/2017 11:25:01 Reason for Referral [facility] Nurse Referral for Sc reening for malignant neoplasm of cervix Annual Exam Referring Physician: Jesus Thurman, Internal Medicine, Encounter Date: 05/07/2015 Building Maintenance Custodian Referral for Screening for malignant neoplasm of [...] Go To The Location Of Their Choice, [facility] 07/21/2017 20:49:33 07/22/19 18 07/21/2017 lipid panel , serum triglyceride 86 mg/dL (<150) Not Available [facility] (Centralized Electronic Ordering - All Locations) Patient Can Go To The Location Of Their Choice, [id number] 07/21/2017 20:49:33 07/22/19 18 07/21/2017 lipid panel , serum HDL chol 70 mg/dL (>39) Not Available [facility] (Centralized Electronic Ordering - All Locations) Patient Can Go To The Location Of Their Choice, [id number] 07/21/2017 20:49:33 07/22/19 18 07/21/2017 lipid panel , serum LDL cholesterol, calculated 155 mg/dL (0-130 ) high Not Available [facility] (Centralized Electronic Ordering - All Locations) Patient Can Go To The Location Of Their Choice, [id number] 07/21/2017 20:49:33 07/22/19 18 07/21/2017 lipid panel , serum non HDL cholesterol (calc) 172 mg/dL (<160) high Not Available [facility] (Centralized Electronic Ordering - All Locations) Patient Can Go To The Location Of Their Choice, [id number] 07/21/2017 20:49:33 Result Notes None recorded. Problems Name Problem SNOMED Code Status Onset Date Resolution Date Notes Provider Name and Address Organization Details Recorded Time Tick bite 59083870 Active Alexa Hein PA-C [address] [facility] [address], [place], [address], [facility] 6 15:53:28 Mencielous al problem 40471480 Active Alexa Hein PA-C [address] [facility] [address], [place], [address], [facility] 6 15:53:28 Acute sinusiti s 14647511 Active Woo Gonsalves MD [address] [facility] [address], [place], [address], [facility] 6 16:44:51 Administ ration of bacteria l and viral vaccine Completed 200711/19/2013 RECORDED 07/10/19 08 2:32PM BY JESUS FRAZIER MD, OFFICE VISIT [facility] [address] [facility] [address], [facility] [place], [address], [facility] 6 15:53:28 Administ ration of bacteria l and viral vaccine Completed 200712/09/2013 RECORDED 07/10/19 08 2:32PM BY JESUS FRAZIER MD, OFFICE VISIT [facility] [address] [address], [facility] [place], [address], [facility] 6 15:53:28 Allergic rhinitis 10825086 Active 2011 Kathya shay [facility] 8 08:38:48 Patient status finding [id number] Completed 201107/21/2017 RECORDED 03/08/20 12 1:53PM BY VICK BUCKNER MA, OFFICE VISIT Kathya shay [facility] 8 08:38:06 Screenin g for malignan t neoplasm of breast Completed 201111/19/2013 RECORDED 03/08/20 12 1:18PM BY VICK BUCKNER MA, ANNOTATI ON/ADDEN DUM Kathya shay [facility] 8 08:38:30 Chronic sinusiti s 99341373 Active 2011 Kathya shay [facility] 8 08:38:38 Adult health examinat ion Completed 201107/21/2017 RECORDED 03/08/20 12 1:54PM BY VICK BUCKNER MA, OFFICE VISIT Kathya shay, [facility] 8 08:38:33 Hyperlip idemia 99175187 Active 2011 Kathya shay, [facility] 8 08:38:42 Malaise and fatigue 794094274 Completed 201111/19/2013 RECORDED 03/08/20 12 1:18PM BY VICK BUCKNER MA, TED ON/ADDEN DUM Alexa Hein PA-C [address], [place], [address], [place] [facility] 6 15:53:28 Menopaus al symptom 02965576 Active 2011 Kathya shay, [facility] 8 08:38:27 Influenz a vaccine needed 04793293657 06 Completed 201111/19/2013 RECORDED 03/08/20 12 2:02PM BY VICK BUCKNER MA, OFFICE VISIT Alexa Hein PA-C [address] [facility] [address], [place], [address], [facility] 6 15:53:28 Adult health examinat ion Completed 201111/19/2013 RECORDED 03/08/20 12 1:18PM BY VICK BUCKNER MA, TED ON/ADDEN DUM Kathya shay [facility] 8 08:38:33 Miscarri age 76398357 Active 2011 Kathya shay [facility] 8 08:38:22 Urinary tract infectio us disease 11319208 Active 2011 Kathya shay [facility] 8 08:38:52 Vitamin D deficien cy 53806314 Completed 201111/19/2013 RECORDED 03/08/20 12 1:18PM BY VICK BUCKNER MA, ANNOTATI ON/ADDEN DUM Alexa Hein PA-C [address], [place], [address], [facility] 6 15:53:28 Screenin g for malignan t neoplasm of breast Completed 201112/09/2013 RECORDED 03/08/20 12 1:18PM BY VICK BUCKNER MA, ANNOTATI ON/ADDEN DUM Kathya Navarrete MA null, [facility] 8 08:38:30 Malaise and fatigue 222863993 Completed 201112/09/2013 RECORDED 03/08/20 12 1:18PM BY VICK BUCKNER MA, ANNOTATI ON/ADDEN DUM Alexa Hein PA-C [address], [place], [address], [facility] 6 15:53:28 Influenz a vaccine needed 30814565365 06 Completed 201112/09/2013 RECORDED 03/08/20 12 2:02PM BY VICK BUCKNER MA, OFFICE VISIT Alexa [facility]-C [address], [place], [address], [facility] 6 15:53:28 Vitamin D deficien cy 04819282 Completed 201112/09/2013 RECORDED 03/08/20 12 1:18PM BY VICK BUCKNER MA, ANNOTATI ON/ADDEN DUM Alexa Hein PR-C [address], [place], [address], [facility] 6 15:53:28 Screenin g for malignan t neoplasm of breast Completed 201207/21/2017 RECORDED 02/28/20 13 12:48PM BY MICKIE JACKSON MA, PHONE ENCOUNTE R Kathya Navarrete MA null, [facility] 8 08:38:30 Screenin g for malignan t neoplasm of cervix Completed 201207/21/2017 RECORDED 02/28/20 13 12:48PM BY MICKIE JACKSON MA, PHONE ENCOUNTE R [facility] 8 08:38:15 Problem Notes None recorded. Procedures Surgical History Date Name Laterality Status Provider Name and Address Organization Details Recorded Time Breast Surgery completed Kathya Navarrete MA [facility] 07/21/2017 10:51:58 Hymenotomy completed Kathya Navarrete MA [facility] 07/21/2017 10:59:55 Imaging Results None recorded. Procedure Notes None recorded. Medical Equipment None Reported. Allergies Allergen ID Allergen Name Allergen Category Reaction Reaction Severity Criticality Documentation Date Start Date Code Code System Note Provider Name and Address Organization Details Recorded Time 15502 Substance with sulfonami de structure and antibacte rial mechanism of action (substanc e) medicatio n Not available Not available Not available 07/08/20142011 32233 8003 SNOMED REACT ION: BACTR IM, FACIA L RASH Yomaira shay, [facility] 5 11:00:53 Medications Name Sig Start [...] (BMI) Body temperature Heart rate Oxygen saturation Systolic And Diastolic Provider Name and Address Organization Details Last Updated DateTime 6 158.115 cm 24903.2 19568 g 19.8 kg/m2 99.1 [degF] 83 /min 97 % 120/68 mm[Hg] Kathya Navarrete MA [facility] 6 13:54:17 Date Recorded Body height Body weight Body mass index (BMI) Heart rate Oxygen saturation Body temperature Systolic And Diastolic Provider Name and Address Organization Details Last Updated DateTime 6 158.115 cm 53524.4 68485 g 19.7 kg/m2 83 /min 98 % 97.6 [degF] 117/76 mm[Hg] Kathya Navarrete MA [facility] 6 15:23:44 Date Recorded Body height Body mass index (BMI) Body weight Heart rate Oxygen saturation Body temperature Systolic And Diastolic Provider Name and Address Organization Details Last Updated DateTime 8 158.12 cm 20.4 kg/m2 27609.1 5 g 82 /min 100 % 99 [degF] 118/77 mm[Hg] [facility] 8 10:59:26 Social History Question Answer Notes LastModified by Organizat ion Details LastModified Time Tobacco Smoking Status Former Smoker Kathya shay [facility] 05/07/2015 13:49:53 Is Blood Transfusion Acceptable In [...] Is Shelley , Grandson Is Raphael Doss [email or web address] Information not available [...] Tdap 8 completed Not Available [facility] 05/18/2019 02:21:47 Td (adult), 2 Lf tetanus toxoid, preservative free, adsorbed 0 completed Not Available [facility] 11/12/2013 14:12:40 Tdap 8 completed Not Available [facility] 11/12/2013 14:12:40 Past Encounters Encounter ID Performer Location Encounter Start Date Encounter Closed Date Diagnosis/Indication Diagnosis SNOMED-CT Code Diagnosis ICD10 Code Diagnosis IMO Codes Diagnosis Note [id number] autoEComm erce [address] [facility] [facility] [place] [address] 07/10/2007 00:00:00 [id number] autoEComm erce [address] [facility] [facility] [place] [address] 03/08/2012 00:00:00 [id number] autoEComm erce [address] [facility] [facility] [place] [address] 03/08/2012 00:00:00 [id number] autoEComm erce [address] [facility] [place] [address] 03/08/2012 00:00:00 [id number] Jesus glass MD Main Office [address] [facility] [address] [place] [address] 05/07/2015 13:39:28 05/07/2015 14:51:38 Adult health examination 415820351 Z00.00 Screening for malignant neoplasm of colon 524265457 Z12.11 Screening for malignant neoplasm of breast 843831948 Z12.39 Screening for malignant neoplasm of cervix 495051246 Z12.4 Menopausal problem 71042 000 N95.1 [id number] Alexa Hein PA-C Main Office [address] [facility] [address] [place] [address] 06/10/2015 15:08:58 06/10/2015 15:55:41 Acute sinusitis 53924232 J01.90 Persistent sinus symptoms and sinusitis. Start Levofloxac in 500 mg qd for 1 week. Medrol dose pack as dir. . Continue Nasocort AQ and nasal saline as well as MUcinex. If recurrent, call Dr. John ENT for f/u. [id number] Jesus glass MD Main Office [address] [facility] [address] [facility] [address] 07/21/2017 10:39:58 07/21/2017 11:42:59 Adult health examination 403698626 Z00.00 Screening for malignant neoplasm of breast 665140303 Z12.39 Screening for malignant neoplasm of colon 404491391 Z12.11 Administra tion of viral vaccine 73790949 Z23 Health Concerns Section Related Observation LastModified by Organization Detai ls LastModified Time None Recorded Concern Status LastModified by Organization Details LastModified Time None Recorded Advance Directives Directive None Recorded Payers Insurance Date Sequence Insurance Name Policy Number Policy Shoemaker Covered Member ID Shoemaker Member ID Guarantor Name 07/21/2017 1 [facility] [place] [id number] Michelle Carrillo [id number] Michelle Carrillo Notes Date Note Type Note [...] considered it in past.). Jesus shay [place] - [facility] 05/07/2015 14:53:21 06/10/2015 text/html ROS as noted in the HPI 60 year old female c/o 3 1/2 week onset of sinus congestion which is getting worse. [place] [facility] [place] Treated with Z-pack and inhaler which [...] they are thick green. Woo Gonsalves MD [address] [facility] [address], [place], [address], [facility] 06/10/2015 16:44:53 07/21/2017 text/html Generic HPI TemplateReported by Patient Jesus HillGreyson shay, [facility] 07/21/2017 12:30:28 OBGyn Episode No OBEpisode recorded.
--- OUTSIDE RECORDS SUMMARY | 2025-04-09 22:36 | XMS_ITS | Patient Health Record ---
Author Organization [facility] [place] Address [address] [place] [address] Care Team Providers Care Director Drug Safety Name Role Phone Yazmin BRANHAM, Adrian Primary Care Provider Toro Garg Unavailable [phone] Allergies Allergen (clinical drug ingredient) Drug/Non Drug [...] Status Risk Notes Problem Acquired hallux valgus (21113131) Hallux valgus (acquired), left foot (M20.12) Active confirmed Problem Acquired hallux valgus (21089916) Hallux valgus (acquired), right foot (M20.11) Active confirmed Plan Of Treatment Pending Test Test Name Order Date X ray : Foot, left 2V 10/11/2017 X ray : Foot, right 2V 10/11/2017 Insurance Providers Payer Name Payer Address Payer Phone Subscriber Number Group Number Insured Name Patient Relationship to Insured Coverage Start Date Coverage End Date Medicare National [employer] [address] [place] [id number] [phone] Michelle Carrillo Self - patient is the insured [facility] [address] [place] [address] Michelle Carrillo Self - patient is the insured Medical (General) History Medical History History ICD Code Measles Mumps Chicken pox chronic sinusitis Surgical History Surgery Date(Month/Year) Tooth extraction 2015
--- OUTSIDE RECORDS SUMMARY | 2025-04-09 22:38 | XMS_ITS | Patient Health Record ---
Author Organization [facility] Address [address] [facility] [address] [place] [address] Care Team Providers Care Forming Machine Tender Name Role Phone JESUS POLLACK Primary Care Provider Unava Radha Tesfaye Unavailable [phone] Reason For Referral No Information Plan Of Treatment No Information Insurance Providers Payer Name Payer Address Payer Phone Subscriber Number Group Number Insured Name Patient Relationship to Insured Coverage Start Date Coverage End Date [employer] [address] [place] [address] [phone] [id number] ABBEY SOLIS Self - patient is the insured
--- OUTSIDE RECORDS SUMMARY | 2025-04-09 22:38 | XMS_ITS | Clinical Summary ---
Author Organization [facility] Address [address] [facility] [address] [place] [address] Phone Care Team Providers Care Forms Builder Name Role Phone Pam Hart MD Primary [...] 03/08/2012 Overview (06/15/2023): RECORDED 03/08/2012 1:18PM BY VCIK KAHN MA, ANNOTATION/ADDENDUM Immunizations Immunization Administration Dates [...] file Insurance MEDICARE PART A & B [facility] [employer] MEDICARE SUPPLEMENT MEDICARE PART A & B [facility] [employer] MEDICARE SUPPLEMENT MEDICARE PART A & [email or web address] MEDICARE SUPPLEMENT MEDICARE PART A & B [email or web address] [employer]ION MEDICARE SUPPLEMENT MEDICARE PART A & B [facility] [employer] MEDICARE SUPPLEMENT MEDICARE PART A & B [facility] [employer] MEDICARE SUPPLEMENT Care Teams Forms Builder Relationship Specialty Start Date End Date Pam Hart MD [address] [place] [phone] PCP - General Internal Medicine 04/12/23 Additional Source Comments The information contained in this document represents components of the legal health record. It is not the complete legal health record.[facility]
== END 2025-04-09 15:20 | disposition home or self-care (01) ==
LOC: HO.HWS 14:24
PROVIDERS: PCP Internal Medicine; Visit Provider Obstetrics & Gynecology
DX: R87.612 Low grade squamous intraepithelial lesion on cytologic smear of cervix (LGSIL) (principal)
CPT/HCPCS: 57454

== ENCOUNTER 2025-04-15 16:32 | Outpatient (AMB) | payer MEDICARE, OTHER, SELFPAY ==
--- OUTSIDE RECORDS SUMMARY | 2023-11-21 05:30 | XMS_ITS ---
Author Organization [facility] Address [address] [place] [address] Care Team Providers Care Planning Rn Name Role Phone Yazmin BRANHAM, Adrian Primary Care Provider Unav ailable Toro Raman Unavailable [phone] Encounters Encounter Location Date Provider Diagnosis [facility] [address] [place] [phone] 11/21/2023 Toro Raman Plan Of Treatment No Information Progress Notes * Michelle CARRILLO ADOB:1955 (70 yo F)Acc No.[id number]:11/21/2023 Progress Notes Patient: Michelle QUILES Provider: Margi Hartman DPM :1955 A ge:68 Y S ex:Female Date:11/21/2023 Address:[address] [place] [address], [id number] Pcp:Adrian Arce MD Subjective: * Chief Complaints: [...] 11/21/2023 Generated for Maria Doloresi ng/Farafaelg/eTransmitting on: 1 06/16/2024 08:14 PM EST
--- NOTE | 2025-04-15 16:29 | A.OFFPC_ITS ---
Intake Visit Reasons: follow up antibiotics /cold Intake Note: Face still swelling, post nasal drip. Finished antibiotics this am Hose Maker Required: No Allergies sulfamethoxazole (From Bactrim) Allergy (Unknown, Verified 04/15/25 16:30) Unknown trimethoprim (From Bactrim) Allergy (Unknown, Verified 04/15/25 16:30) Unknown Bactrum Allergy (Severe, Uncoded 04/15/25 16:30) Rash Seasonal Allergy (Severe, Uncoded 04/15/25 16:30) Rash Tobacco use date assessed: 04/15/25 Fall risk assessment: No Falls in past year Last assessed Fall Risk: 04/15/25 Dental Screening Dental Screen Date: 04/15/25 Did you have a dental visit in the last 12 months?: Yes Did you have a dental problem in the last 6 months where you did not have access to dental care?: No Was dental information given to patient?: Patient has dentist HPI HPI Comments History of Present Illness Details The patient is a 70-year-old female with a past medical history of allergies, chronic sinusitis, eczema, history of BCC, osteoporosis, TMJ presenting for follow up Recent sinus infection. Started doxycycline made her sick after one dose then just completed a course of augmetin. Some improvement but still quite persistent sinus congestion, facial swelling. She has seen ENT She recently underwent colposcopy, endometrial curretage by vest finisher and awaits biopsy results. Pulm: Follows with Dr Mary. On dupixent. Asthma/Chronic sinusitis/allergic rhinitis: History of COVID . Received allergy shots with Dr Keller remotely NEOS-right biceps tear Ophtho-Dr Jaquan ARENAS vest finisher. Declines mammogram, [facility] Pulm-Dr Usman Kelly-previously sent but not completed. ok for resend. ROS see HPI PHYSICAL EXAM: Telehealth [facility] Medical History Genital herpes Eczema Sinusitis Asthma Bronchitis, mucopurulent recurrent Allergic urticaria Reactive airway disease Murmur Tachycardia Post-COVID syndrome Bronchitis COVID-19 Surgical History History of appendectomy Family History Mother Diabetes Lymphoma Father Lung cancer Alzheimer disease Maternal Grandmother Congestive heart failure Maternal Grandfather Diabetes Social History Household Members: None Housing: House Alcohol intake: never Patient Tobacco Use Status: Former Tobacco user Tobacco use type: Cigarette Years Smoked: 20+ years e-Cigarette/Vaping Use: Never Used Current occupational status: employed 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 How often do you have a drink containing alcohol?: Never 3. How often do you have six or more drinks on one occasion?: Never Total Score: 0 DORYS-7 AMB Questionnaire DORYS-7 Date DORYS - 7 assessed: 12/11/23 Source: Developed by Drs. Jona Reyes, Lyssa Cummings, Mert Solomon and colleagues, with an educational paris from [employer]. Physical exam (Primary Care) Tobacco/Smoking Status: Tobacco use Status Tobacco use date assessed 04/15/25 04/15/25 16:31 Patient Tobacco Use Status Former Tobacco user 04/15/25 16:31 Tobacco use type Cigarette 04/15/25 16:31 e-Cigarette/Vaping Use Never Used 04/15/25 16:31 Thrive Assessment: Date of Thrive Assessment Date Thrive assessed 08/12/24 04/15/25 16:31 Telehealth Telehealth Telehealth Platform: Telephone Location of provider rendering services: practice address Location of patient: address on file Patient Identification confirmed using: Name, : Yes Telehealth method: voice only Patient verbally consented to treatment: Yes Patient verbally consented to billing insurance company: Yes Patient informed of any privacy concerns related to visit: Yes Minutes spent on Phone/Video with Pt.: 25 Coding Level of Care Code Tele Est Pt Level 3 (71114) Diagnoses Chronic sinusitis, unspecified location J32.9 Sinusitis location: unspecified location Chronicity: chronic LGSIL on Pap smear of cervix R87.612 Assessment & Plan Assessment & Plan (1) Sinusitis: Comment: better Code(s): J32.9 - Chronic sinusitis, unspecified Category: Medical Qualifiers: Sinusitis location: unspecified location Chronicity: chronic Qualified Code(s): J32.9 - Chronic sinusitis, unspecified (2) LGSIL on Pap smear of cervix: Comment: Can not exclude HGSIL HPV 16 positive Code(s): R87.612 - Low grade squamous intraepithelial lesion on cytologic smear of cervix (LGSIL) Category: Medical Plan 70 year old for follow up Persistent sinus congestion. Has tolerated levaquin in the past. Will try this for 5 day plus 3 days with prednisone Pending cervical biopsy. Medications: New levofloxacin 750 mg PO DAILY 5 tabs 0RF prednisone 40 mg (2 x 20 mg) PO DAILY 6 tabs 0RF
--- OUTSIDE RECORDS SUMMARY | 2025-04-15 20:15 | XMS_ITS | Data Portability ---
Author Organization [facility], Main Office Address [address] [facility] [address] [place] [address] Care Team Providers Care Machine Tank Operator Name Role Phone ALEXA HEIN OTHER [...] 8 11:42:[address] referral 2015 016 [facility], [address] [place] [address], [place], [address], 6 14:42:14 Procedures colonoscop y screening (PROC) [...] levofloxac in 500 mg tablet 2015 016 [facility]armacy #0838, [address] [place], [address], 8 08:37:53 Medrol (Henry) 4 mg tablets in a dose pack 2015 016 [facility], [address] [place], [address], 8 08:38:01 Patient TargetsNo targets recorded. Patient Instructions Encounter Date Encounter Id Patient Instructions Last Modified By Organization Details Last Modified Time 05/07/2015 [id number] Screening Mammogram [email or web address] Not available 05/07/2015 15:21:42 Colon Cancer Screening VMA [email or web address] Not available 05/07/2015 14:47:03 Cervical Cancer Screening [email or web address] Not available 05/07/2015 15:21:42 Medications were reviewed at this visit and reconciled. Changes in the active medications are reflected in the current medication list and discussed with patient (or caregiver) with instructions for follow up as needed. Printed medication list provided to the patient as part of the visit summary. pt uses only otc meds mdalessandro Not available 05/07/2015 14:34:22 06/10/2015 [id number] I have reviewed the note and agree with the assessment and plan of care. dontrell Not available 06/10/2015 16:44:52 07/21/2017 [id number] learning about colon cancer [email or web address] Not available 07/21/2017 11:25:01 Reason for Referral Inbound Customer Service Representative Referral for Sc reening for malignant neoplasm of cervix Annual Exam Referring Physician: Jesus Thurman, Internal Medicine, Encounter Date: 05/07/2015 Waste Transportation Technician Referral for Screening for malignant neoplasm [...] Go To The Location Of Their Choice, [facility] 07/21/2017 20:49:33 07/22/19 18 07/21/2017 lipid panel , serum triglyceride 86 mg/dL (<150) Not Available [facility] (Centralized Electronic Ordering - All Locations) Patient Can Go To The Location Of Their Choice, [id number] 07/21/2017 20:49:33 07/22/19 18 07/21/2017 lipid panel , serum HDL chol 70 mg/dL (>39) Not Available [facility] (Centralized Electronic Ordering - All Locations) Patient Can Go To The Location Of Their Choice, [id number] 07/21/2017 20:49:33 07/22/19 18 07/21/2017 lipid panel , serum LDL cholesterol, calculated 155 mg/dL (0-130 ) high Not Available [facility] (Centralized Electronic Ordering - All Locations) Patient Can Go To The Location Of Their Choice, [id number] 07/21/2017 20:49:33 07/22/19 18 07/21/2017 lipid panel , serum non HDL cholesterol (calc) 172 mg/dL (<160) high Not Available [facility] (Centralized Electronic Ordering - All Locations) Patient Can Go To The Location Of Their Choice, [id number] 07/21/2017 20:49:33 Result Notes None recorded. Problems Name Problem SNOMED Code Status Onset Date Resolution Date Notes Provider Name and Address Organization Details Recorded Time Tick bite 54577546 Active Alexa Hein PA-C [address] [facility] [address], [place], [address], [facility] [place] 6 15:53:28 Mencielous al problem 82432243 Active Alexa Hein PA-C [address] [facility] [address], [place], [address], [facility] 6 15:53:28 Acute sinusiti s 51121596 Active Woo Gonsalves MD [address] [facility] [address], [place], [address], [facility] 6 16:44:51 Administ ration of bacteria l and viral vaccine Completed 200711/19/2013 RECORDED 07/10/19 08 2:32PM BY JESUS FRAZIER MD, OFFICE VISIT [facility] [address] [facility] [address], [facility] [place], [address], [facility] 6 15:53:28 Administ ration of bacteria l and viral vaccine Completed 200712/09/2013 RECORDED 07/10/19 08 2:32PM BY JESUS FRAZIER MD, OFFICE VISIT [facility] [address] [address], [facility] [place], [address], [facility] 6 15:53:28 Allergic rhinitis 14662815 Active 2011 Kathya shay [facility] 8 08:38:48 Patient status finding [id number] Completed 201107/21/2017 RECORDED 03/08/20 12 1:53PM BY VICK BUCKNER MA, OFFICE VISIT Kathya shay [facility] 8 08:38:06 Screenin g for malignan t neoplasm of breast Completed 201111/19/2013 RECORDED 03/08/20 12 1:18PM BY VICK BUCKNER MA, ANNOTATI ON/ADDEN DUM Kathya shay [facility] 8 08:38:30 Chronic sinusiti s 77654379 Active 2011 Kathya shay [facility] 8 08:38:38 Adult health examinat ion Completed 201107/21/2017 RECORDED 03/08/20 12 1:54PM BY VICK BUCKNER MA, OFFICE VISIT Kathya shay, [facility] 8 08:38:33 Hyperlip idemia 60267663 Active 2011 Kathya shay, [facility] 8 08:38:42 Malaise and fatigue 184489333 Completed 201111/19/2013 RECORDED 03/08/20 12 1:18PM BY VICK BUCKNER MA, TED ON/ADDEN DUM Alexa Hein PA-C [address], [place], [address], [place] [facility] 6 15:53:28 Menopaus al symptom 41276074 Active 2011 Kathya shay, [facility] 8 08:38:27 Influenz a vaccine needed 53949351320 06 Completed 201111/19/2013 RECORDED 03/08/20 12 2:02PM BY VICK UBCKNER MA, OFFICE VISIT Alexa Hein PA-C [address] [facility] [address], [place], [address], [facility] 6 15:53:28 Adult health examinat ion Completed 201111/19/2013 RECORDED 03/08/20 12 1:18PM BY VICK BUCKNER MA, TED ON/ADDEN DUM Kathya shay [facility] 8 08:38:33 Miscarri age 57807296 Active 2011 Kathya shay [facility] 8 08:38:22 Urinary tract infectio us disease 06843070 Active 2011 Kathya shay [facility] 8 08:38:52 Vitamin D deficien cy 93481792 Completed 201111/19/2013 RECORDED 03/08/20 12 1:18PM BY VICK BUCKNER MA, ANNOTATI ON/ADDEN DUM Alexa Hein PA-C [address], [place], [address], [facility] 6 15:53:28 Screenin g for malignan t neoplasm of breast Completed 201112/09/2013 RECORDED 03/08/20 12 1:18PM BY VICK BUCKNER MA, ANNOTATI ON/ADDEN DUM Kathya Navarrete MA null, [facility] 8 08:38:30 Malaise and fatigue 592706490 Completed 201112/09/2013 RECORDED 03/08/20 12 1:18PM BY VICK BUCKNER MA, ANNOTATI ON/ADDEN DUM Alexa Hein PA-C [address], [place], [address], [facility] 6 15:53:28 Influenz a vaccine needed 97081969399 06 Completed 201112/09/2013 RECORDED 03/08/20 12 2:02PM BY VICK BUCKNER MA, OFFICE VISIT Alexa [facility]-C [address], [place], [address], [facility] 6 15:53:28 Vitamin D deficien cy 84559551 Completed 201112/09/2013 RECORDED 03/08/20 12 1:18PM BY VICK BUCKNER MA, ANNOTATI ON/ADDEN DUM Alexa Hein AK-C [address], [place], [address], [facility] 6 15:53:28 Screenin g for malignan t neoplasm of breast Completed 201207/21/2017 RECORDED 02/28/20 13 12:48PM BY MICKIE JACKSON MA, PHONE ENCOUNTE R Katyha Navarrete MA null, [facility] 8 08:38:30 Screenin g for malignan t neoplasm of cervix Completed 201207/21/2017 RECORDED 02/28/20 13 12:48PM BY MICKIE JACKSON MA, PHONE ENCOUNTE R [facility] 8 08:38:15 Problem Notes None recorded. Procedures Surgical History Date Name Laterality Status Provider Name and Address Organization Details Recorded Time Breast Surgery completed Kathya Navarrete MA [facility] 07/21/2017 10:51:58 Hymenotomy completed Kathya Navarrete MA [facility] 07/21/2017 10:59:55 Imaging Results None recorded. Procedure Notes None recorded. Medical Equipment None Reported. Allergies Allergen ID Allergen Name Allergen Category Reaction Reaction Severity Criticality Documentation Date Start Date Code Code System Note Provider Name and Address Organization Details Recorded Time 49903 Substance with sulfonami de structure and antibacte rial mechanism of action (substanc e) medicatio n Not available Not available Not available 07/08/20142011 04611 8003 SNOMED REACT ION: BACTR IM, FACIA [...] Details Last Updated DateTime 6 158.115 cm 16422.2 08694 g 19.8 kg/m2 99.1 [degF] 83 /min 97 % 120/68 mm[Hg] Kathya Navarrete MA [facility] 6 13:54:17 Date Recorded Body height Body weight Body mass index (BMI) Heart rate Oxygen saturation Body temperature Systolic And Diastolic Provider Name and Address Organization Details Last Updated DateTime 6 158.115 cm 48523.4 80650 g 19.7 kg/m2 83 /min 98 % 97.6 [degF] 117/76 mm[Hg] Kathya Navarrete MA [facility] 6 15:23:44 Date Recorded Body height Body mass index (BMI) Body weight Heart rate Oxygen saturation Body temperature Systolic And Diastolic Provider Name and Address Organization Details Last Updated DateTime 8 158.12 cm 20.4 kg/m2 38806.1 5 g 82 /min 100 % 99 [degF] 118/77 mm[Hg] Kathya Nav[facility]rete MA [facility] 8 10:59:26 Social History Question Answer Notes LastModified by Organizat ion Details LastModified Time Tobacco Smoking Status Former Smoker Kathya shay [facility] 05/07/2015 13:49:53 Is Blood Transfusion Acceptable [...] Recorded Time Tdap 8 completed Not Available [facility] 05/18/2019 02:21:47 Td (adult), 2 Lf tetanus toxoid, preservative free, adsorbed 0 completed Not Available [facility] 11/12/2013 14:12:40 Tdap 8 completed Not Available [facility] 11/12/2013 14:12:40 Past Encounters Encounter ID Performer Location Encounter Start Date Encounter Closed Date Diagnosis/Indication Diagnosis SNOMED-CT Code Diagnosis ICD10 Code Diagnosis IMO Codes Diagnosis Note [id number] autoEComm erce [address] [facility] [address] [place] [address] 07/10/2007 00:00:00 [id number] autoEComm erce [address] [facility] [place] [address] 03/08/2012 00:00:00 [id number] autoEComm erce [address] [facility] [place] [address] 03/08/2012 00:00:00 [id number] autoEComm erce [address] [facility] [address] [place] [address] 03/08/2012 00:00:00 [id number] Jesus glass MD Main Office [address] [facility] [address] [place] [address] 05/07/2015 13:39:28 05/07/2015 14:51:38 Adult health examination 352127549 Z00.00 Screening for malignant neoplasm of colon 692983846 Z12.11 Screening for malignant neoplasm of breast 592343227 Z12.39 Screening for malignant neoplasm of cervix 984337508 Z12.4 Menopausal problem 02294 000 N95.1 [id number] Alexa Hein PA-C Main Office [address] [facility] [address] [place] [address] 06/10/2015 15:08:58 06/10/2015 15:55:41 Acute sinusitis 03611567 J01.90 Persistent sinus symptoms and sinusitis. Start Levofloxac in 500 mg qd for 1 week. Medrol dose pack as dir. . Continue Nasocort AQ and nasal saline as well as MUcinex. If recurrent, call Dr. John ENT for f/u. [id number] Jesus glass MD Main Office [address] [facility] [address] [facility] [address] 07/21/2017 10:39:58 07/21/2017 11:42:59 Adult health examination 631292953 Z00.00 Screening for malignant neoplasm of breast 472099617 Z12.39 Screening for malignant neoplasm of colon 279589069 Z12.11 Administra tion of viral vaccine 36819250 Z23 Health Concerns Section Related Observation LastModified by Organization Detai ls LastModified Time None Recorded Concern Status LastModified by Organization Details LastModified Time None Recorded Advance Directives Directive None Recorded Payers Insurance Date Sequence Insurance Name Policy Number Policy Shoemaker Covered Member ID Shoemaker Member ID Guarantor Name 07/21/2017 1 [facility] [id number] Michelle Carrillo [id number] Michelle Carrillo Notes Date Note Type Note [...] it in past.). Jesus shay [place] - [facility] 05/07/2015 14:53:21 06/10/2015 text/html ROS as noted in the HPI 60 year old female c/o 3 1/2 week onset of sinus congestion which is getting worse. Pt. went to [facility] twice. Treated with Z-pack and inhaler which [...] they are thick green. Woo Gonsalves MD [address] [facility] [address], [place], [address], [facility] 06/10/2015 16:44:53 07/21/2017 text/html Generic HPI TemplateReported by Patient Jesus HillGreyson shay, [facility] 07/21/2017 12:30:28 OBGyn Episode No OBEpisode recorded.
--- OUTSIDE RECORDS SUMMARY | 2025-04-15 20:15 | XMS_ITS | Patient Health Record ---
Author Organization [facility] Address [address] [facility] [address] [place] [address] Care Team Providers Care Forge Hand Name Role Phone JESUS POLLACK Primary Care Provider Unava Radha Tesfaye Unavailable [phone] Reason For Referral No Information Plan Of Treatment No Information Insurance Providers Payer Name Payer Address Payer Phone Subscriber Number Group Number Insured Name Patient Relationship to Insured Coverage Start Date Coverage End Date [facility] [address] [place] [place] [address] [id number] ABBEY SOLIS Self - patient is the insured
--- OUTSIDE RECORDS SUMMARY | 2025-04-15 20:15 | XMS_ITS | Clinical Summary ---
Author Organization [facility] Address [address] [place] [address] Phone Care Team Providers Care Senior Firewall Engineer Name Role Phone Physician, No Pcp [...] Recently Relevant to Health Maintenance Insurance MEDICARE [facility] Care Teams Senior Firewall Engineer Relationship Specialty Start Date End Date Physician, No Pcp PCP - General 05/17/24
--- OUTSIDE RECORDS SUMMARY | 2025-04-15 20:15 | XMS_ITS | Data Portability ---
Author Organization [facility] [address] Address [address] [place] [address] Assessment No assessment recorded. Plan of Treatment Reminders Order Date Submit Date Provider Last Modified By Organization Details Last Modified Time Details Appointments None recorded. Lab SARS CoV 2 (COVID-19) Ag, QL, [place], upper respiratory specimen 2023 024 [email or web address] [address] [facility] [address], [address] [place], [address], 19:26:41 Referral None recorded. Procedures None recorded. Surgeries None recorded. Imaging None recorded. Medication Orders prednisone 20 mg tablet 2023 024 [facility]/Pharmacy #0838, [address] [place], [address], 4 19:26:42 Augmentin 875 mg-125 mg tablet 2023 024 [facility]armacy #0838, [address] [place], [address], 4 19:26:43 Patient TargetsNo targets recorded. Patient Instructions Encounter Date Encounter Id Patient Instructions Last Modified By Organization Details Last Modified Time 11/28/2023 [id number] Follow-up with your doctor if no improvement in 1 week. Seek Emergency Medical evaluation for any worsening symptoms. [email or web address] Not available 11/28/2023 19:26:37 Reason for Referral None Reported. Results Created Date Observation Date Name Description Value Unit Range Abnormal Flag Note LastModifiedBy Organization Detail LastModifiedTime 11/28/19 24 11/28/2023 SARS CoV 2 (COVI D-19) Ag, QL, [place], upper respi rator y speci men Unknown Analyte negati ve Not Available _ [address] [place], [address], 11/28/2023 19:01:45 Result Notes None recorded. Problems Name Problem SNOMED Code Status Onset Date Resolution Date Notes Provider Name and Address Organization Details Recorded Time Asthma 008451011 Active DIONY MINEO null, PA - [facility] 4 19:00:05 Sinusitis 70014335 Active DIONY MINEO null, PA - [facility] 19:00:15 Problem Notes None recorded. Medical Equipment None Reported. Allergies Allergen ID Allergen Name Allergen Category Reaction Reaction Severity Criticality Documentation Date Start Date Code Code System Note Provider Name and Address Organization Details Recorded Time 131922 Bactrim medicatio n Not available Not available Not available 11/28/2023 24997 9 RxNorm DIONY MINEO null, PA - [...] Updated DateTime 4 157.48 cm 19 kg/m2 04317.6 1 g 98 % 88 /min 18 [...] ICD10 Code Diagnosis IMO Codes Diagnosis Note [id number] [address] [place] [address] 12/15/2019 15:30:24 12/15/2019 15:59:14 [id number] [address] [place] [address] 07/05/2018 14:08:24 07/05/2018 15:02:[id number] [place] [address] 07/16/2018 18:17:14 07/16/2018 19:10:17 [id number] [address] [place] [address] 02/09/2017 18:53:59 02/09/2017 19:35:47 [id number] [address] [address] [place] [address] 05/18/2015 11:53:52 05/18/2015 12:28:11 [id number] [address] [place] [address] 05/25/2020 18:50:55 05/25/2020 19:29:04 [id number] [place] [address] 11/13/2016 17:56:36 11/13/2016 18:27:40 [id number] [address] [place] [address] 05/21/2015 10:43:28 05/21/2015 11:47:29 [id number] [address] [place] [address] 05/19/2019 15:47:25 05/19/2019 16:02:47 [id number] [address] [address] [address] [place] [address] 08/02/2016 19:01:00 08/02/2016 19:56:35 [id number] [facility] [address] [facility] [address] [place] [address] 11/15/2017 19:27:57 11/15/2017 19:39:43 [id number] ALLEN MILLS MD [address] [address] 11/28/2023 18:46:44 11/28/2023 19:27:50 Dry cough 18905290 R05.9 CoughBlack Elderberry Syrup:1-2 tsp 2-3 times a day for 5 days as needed for coughing.S ambucol Black Elderberry Original Syrup (available at [employer] )Jannet Herbs Black Elderberry Syrup, 5.4-Ounce Bottle (available at [employer] or [employer]) Use a cool mist humidifier in the room that you sleep to add moisture to the air, which should soothe the airways and help loosen any mucus that may be present. Acute maxi llary sinusitis 44597479 J01.00 Health Concerns Section Related Observation LastModified by Organization Detai ls LastModified Time None Recorded Concern Status LastModified by Organization Details LastModified Time None Recorded Advance Directives Directive None Recorded Payers Insurance Date Sequence Insurance Name Policy Number Policy Shoemaker Covered Member ID Shoemaker Member ID Guarantor Name 11/28/2023 1 MEDICARE [place]: [employer] Michelle Carrillo [id number] Michelle Carrillo 11/28/2023 2 [facility] (INDEMNITY) [id number] Juan Jose Carrillo [id number] Michelle Carrillo Notes Date Note Type Note Provider Name and Address Organization Details Recorded Time 11/28/2023 text/html 6 days of sinus pressure. Hx of sinus infections. Last one 3 months ago. Hx of Asthma. Uses her meds regularly and is not having Asthma symptoms now. ALLEN MILLS [place] [facility] [place], [address], [place] - [facility] 11/28/2023 19:27:26 OBGyn Episode No OBEpisode recorded.
--- OUTSIDE RECORDS SUMMARY | 2025-04-15 20:15 | XMS_ITS | Patient Health Record ---
Author [facility] [place] Address [address] [place] [address] Care Team Providers Care Grill Chef Name Role Phone Yazmin BRANHAM, Adrian Primary Care Provider Toro Garg Unavailable [phone] Allergies Allergen (clinical drug ingredient) Drug/Non Drug [...] Status Risk Notes Problem Acquired hallux valgus (39314848) Hallux valgus (acquired), left foot (M20.12) Active confirmed Problem Acquired hallux valgus (60850741) Hallux valgus (acquired), right foot (M20.11) Active confirmed Plan Of Treatment Pending Test Test Name Order Date X ray : Foot, left 2V 10/11/2017 X ray : Foot, right 2V 10/11/2017 Insurance Providers Payer Name Payer Address Payer Phone Subscriber Number Group Number Insured Name Patient Relationship to Insured Coverage Start Date Coverage End Date Medicare National [employer]t [employer] [address] [place] [phone] Michelle Carrillo Self - patient is the insured [facility] [address] [place] [address] [phone] Michelle Carrillo Self - patient is the insured Medical (General) History Medical History History ICD Code Measles Mumps Chicken pox chronic sinusitis Surgical History Surgery Date(Month/Year) Tooth extraction 2015
--- OUTSIDE RECORDS SUMMARY | 2025-04-15 20:15 | XMS_ITS | Clinical Summary ---
Author Organization [facility] Address [address] [facility] [address] [place] [address] Phone Care Team Providers Care Car Inspection And Repair Manager Name Role Phone Pam Hart MD Primary [...] file Insurance MEDICARE PART A & B [facility] MEDICARE SUPPLEMENT MEDICARE PART A & B [facility] MEDICARE SUPPLEMENT MEDIC[facility] PART [facility] & [facility] SUPPLEMENT MEDICARE PART A & [facility] MEDICARE SUPPLEMENT MEDICARE PART A & B [facility] MEDICARE SUPPLEMENT MEDICARE PART A & B [facility] MEDICARE SUPPLEMENT Care Teams Car Inspection And Repair Manager Relationship Specialty Start Date End Date Pam Hart MD [address] [place] [phone] PCP - General Internal Medicine 04/12/23 Additional Source Comments The information contained in this document represents components of the legal health record. It is not the complete legal health record.[facility]
== END 2025-04-15 17:05 | disposition home or self-care (01) ==
LOC: HO.HMCFM 16:32
PROVIDERS: PCP Internal Medicine; Visit Provider Internal Medicine
DX: J32.9 Chronic sinusitis, unspecified (principal); R87.612 Low grade squamous intraepithelial lesion on cytologic smear of cervix (LGSIL)

== ENCOUNTER 2025-04-29 13:44 | Outpatient (REF) | payer MEDICARE, OTHER, SELFPAY ==
--- OUTSIDE RECORDS SUMMARY | 2023-11-21 05:30 | XMS_ITS ---
Author Organization [facility] Address [address] [place] [address] Care Team Providers Care Ranch Hand Name Role Phone Yazmin BRANHAM, Adrian Primary Care Provider Unav ailable Toro Raman Unavailable [phone] Encounters Encounter Location Date Provider Diagnosis [facility] [address] [place] [id number] 11/21/2023 Toro Raman Plan Of Treatment No Information Progress Notes * Michelle CARRILLO ADOB:1955 (70 yo F)Acc No.[id number]:11/21/2023 Progress Notes Patient: Michelle QUILES Provider: Margi Hartman DPM :1955 A ge:68 Y S ex:Female Date:11/21/2023 Address:[address] [place] [address], [id number] Pcp:Adrian Arce MD Subjective: * Chief Complaints: [...] Date: 0 11/21/2023 Generated for Maria Doloresi ng/Farafaelg/eTransmitting on: 05:35 PM EST
[2025-04-29 13:56] LABS: MANUAL DIFF FLAG NO
[2025-04-29 14:17] LABS: Hematocrit 44.5 % (37.0-47.0); Hemoglobin 14.7 g/dl (12.0-16.0); Imm Gran Abs Auto 0.03 X10*3/uL (0.00-0.03); Imm Gran Pct Auto 0.3 % (0.0-0.4); Lymphocytes Absolute Auto 2.5 X10*3/uL (1.2-4.9); Mean Corpuscular HGB Conc 33.0 g/dl (31.0-35.0); Mean Corpuscular Hemoglobin 31.5 pg (27.0-33.0); Mean Corpuscular Volume 95.5 fL (80.0-98.0); NRBC Abs Auto 0.000 X10*3/uL (0.0-0.012); NRBC Pct Auto 0.0 /100WBC (0.0-0.2); Platelet Count 420 X10*3/uL (160-400); Red Blood Count 4.66 X10*6/uL (4.20-5.50); White Blood Count 9.0 X10*3/uL (4.8-10.8)
[2025-04-29 15:19] LABS: Ferritin 107 ng/mL (10-250); Free T4 (Free Thyroxine) 0.99 ng/dL (0.71-1.85); Iron 94 mcg/dL (30-160); Percent Iron Saturation 31 % (15-50); Thyroid Stimulating Hormone 1.00 uIU/mL (0.32-4.0); Total Iron Binding Capacity 307 mcg/dL (228-428); Unsaturated Iron Binding 213 ug/dL
--- OUTSIDE RECORDS SUMMARY | 2025-04-29 17:36 | XMS_ITS | Data Portability ---
Author Organization [facility], [address] Address [address] [place] [address] Assessment No assessment recorded. Plan of Treatment Reminders Order Date Submit Date Provider Last Modified By Organization Details Last Modified Time Details Appointments None recorded. Lab SARS CoV 2 (COVID-19) Ag, QL, IA, upper respiratory specimen 2023 024 [email or web address] 247 [facility] [address], [address] [place], [address], 19:26:41 Referral None recorded. Procedures None recorded. Surgeries None recorded. Imaging None recorded. Medication Orders prednisone 20 mg tablet 2023 024 [id number], [address] [place], [address], 4 19:26:42 Augmentin 875 mg-125 mg tablet 2023 024 [id number], [address] [place], [address], 4 19:26:43 Patient TargetsNo targets recorded. Patient Instructions Encounter Date Encounter Id Patient Instructions Last Modified By Organization Details Last Modified Time 11/28/2023 [id number] Follow-up with your doctor if no improvement in 1 week. Seek Emergency Medical evaluation for any worsening symptoms. [email or web address] Not available 11/28/2023 19:26:37 Reason for Referral None Reported. Results Created Date Observation Date Name Description Value Unit Range Abnormal Flag Note LastModifiedBy Organization Detail LastModifiedTime 11/28/19 24 11/28/2023 SARS CoV 2 (COVI D-19) Ag, QL, IA, upper respi rator y speci men Unknown Analyte negati ve Not Available _ [address] [place], [address], 11/28/2023 19:01:45 Result Notes None recorded. Problems Name Problem SNOMED Code Status Onset Date Resolution Date Notes Provider Name and Address Organization Details Recorded Time Asthma 313699824 Active DIONY MINEO null, [place] - [facility] 4 19:00:05 Sinusitis 88037121 Active DIONY MINEO null, [place] - [facility] 19:00:15 Problem Notes None recorded. Medical Equipment None Reported. Allergies Allergen ID Allergen Name Allergen Category Reaction Reaction Severity Criticality Documentation Date Start Date Code Code System Note Provider Name and Address Organization Details Recorded Time 013171 Bactrim medicatio n Not available Not available Not available 11/28/2023 96372 9 RxNorm DIONY MINEO null, PA - [...] Updated DateTime 4 157.48 cm 19 kg/m2 01270.6 1 g 98 % 88 /min 18 [...] ICD10 Code Diagnosis IMO Codes Diagnosis Note [id number] [address] [place] [address] 12/15/2019 15:30:24 12/15/2019 15:59:14 [id number] [address] [place] [address] 7 07/05/2018 14:08:24 07/05/2018 15:02:09 [id number] [address] [place] [address] 7 07/16/2018 18:17:14 07/16/2018 19:10:17 [id number] [address] [place] [address] 7 02/09/2017 18:53:59 02/09/2017 19:35:47 [id number] [address] [address] [place] [address] 7 05/18/2015 11:53:52 05/18/2015 12:28:11 [id number] [address] [place] [address] 7 05/25/2020 18:50:55 05/25/2020 19:29:04 [id number] [address] [place] [address] 7 11/13/2016 17:56:36 11/13/2016 18:27:40 [id number] [address] [place] [address] 7 05/21/2015 10:43:28 05/21/2015 11:47:29 [id number] [address] [place] [address] 7 05/19/2019 15:47:25 05/19/2019 16:02:47 [id number] [address] [address] [place] [address] 08/02/2016 19:01:00 08/02/2016 19:56:35 [id number] [facility] [address] [facility] [address] [place] [address] 7 11/15/2017 19:27:57 11/15/2017 19:39:43 [id number] [place] MILLS [place] [address] [address] 11/28/2023 18:46:44 11/28/2023 19:27:50 Dry cough 44987752 R05.9 CoughBlack Elderberry Syrup:1-2 tsp 2-3 times a day for 5 days as needed for coughing.S ambucol Black Elderberry Original Syrup (available at [employer] )Jannet Herbs Black Elderberry Syrup, 5.4-Ounce Bottle (available at [employer] or [employer]) Use a cool mist humidifier in the room that you sleep to add moisture to the air, which should soothe the airways and help loosen any mucus that may be present. Acute maxi llary sinusitis 25852640 J01.00 Health Concerns Section Related Observation LastModified by Organization Detai ls LastModified Time None Recorded Concern Status LastModified by Organization Details LastModified Time None Recorded Advance Directives Directive None Recorded Payers Insurance Date Sequence Insurance Name Policy Number Policy Shoemaker Covered Member ID Shoemaker Member ID Guarantor Name 11/28/2023 1 MEDICARE B-AR: [id number] Michelle Carrillo [id number] Michelle Carrillo 11/28/2023 2 [facility] INDEMNITY PLAN (INDEMNITY) [id number] Juan Jose Carrillo [id number] Michelle Carrillo Notes Date Note Type Note Provider Name and Address Organization Details Recorded Time 11/28/2023 text/html 6 days of sinus pressure. Hx of sinus infections. Last one 3 months ago. Hx of Asthma. Uses her meds regularly and is not having Asthma symptoms now. ALLEN MILLS MD [facility] [place], [address], [place] - [facility] 11/28/2023 19:27:26 OBGyn Episode No OBEpisode recorded.
--- OUTSIDE RECORDS SUMMARY | 2025-04-29 17:36 | XMS_ITS | Patient Health Record ---
Author Organization [facility] [place] Address [address] [place] [address] Care Team Providers Care Integrated Logistics Programs Director Name Role Phone Yazmin BRANHAM, Adrian Primary Care Provider Toro Garg Unavailable [phone] Allergies Allergen (clinical drug ingredient) Drug/Non Drug [...] Status Risk Notes Problem Acquired hallux valgus (24725449) Hallux valgus (acquired), left foot (M20.12) Active confirmed Problem Acquired hallux valgus (14233523) Hallux valgus (acquired), right foot (M20.11) Active confirmed Plan Of Treatment Pending Test Test Name Order Date X ray : Foot, left 2V 10/11/2017 X ray : Foot, right 2V 10/11/2017 Insurance Providers Payer Name Payer Address Payer Phone Subscriber Number Group Number Insured Name Patient Relationship to Insured Coverage Start Date Coverage End Date Medicare [employer] [address] [place] [phone] Michelle Carrillo Self - patient is the insured [facility] ([facility] [address] [place] [address] [phone] Michelle Carrillo Self - patient is the insured Medical (General) History Medical History History ICD Code Measles Mumps Chicken pox chronic sinusitis Surgical History Surgery Date(Month/Year) Tooth extraction 2015
--- OUTSIDE RECORDS SUMMARY | 2025-04-29 17:36 | XMS_ITS ---
Author Name Ese Wasserman Address Unknown Organization [facility] Care Team Providers Care Brace Maker Name Role Phone Unavailable Primary Care Physician Unavailab le History Of Present Illness This is a 70 year old female who is an established patient who is being seen for an evaluation of skin lesions.Location: body throughoutPertinent History: actinic keratoses and basal cell skin cancerPertinent Negatives: no family history of melanomaAdditional Visit Reasons: education and counseling about sun exposure, evaluation for suspicious growths, and evaluation of current nevi Allergies, Adverse Reactions, Alerts Substance RxNorm Reaction(s) Severity Status Start Da te Bactrim unspecified active Seasonal, environmental N/A N/A N/A N/A N/A Medications Medication Generic Name RxNorm Strength Strength Unit Route Dose Dose Form Frequency Date Started Date Ended Status Indication Sig clobetasol clobetas ol 769575 0.05 % Topica l cream 04/28/20 25 active Appl y a thin laye r twic e a day to hand s for 2 week s on, 1 week off. Repe at as need ed. triamcinolo ne acetonide triamcin olone acetonid e 1224558 0.1 % Topica l cream 03/19/20 21 suspend ed Appl y twic e magda y to the hand s. Repe at as need ed for flar es. albuterol sulfate 90 mcg/actua tion Inhala tion 1 HFA aeros ol inhal er prn suspend ed Symbicort 160-4.5 mcg/actua tion Inhala tion 1 HFA aeros ol inhal er prn suspend ed Sirisha Allergy fexofena dine 180 mg Oral 1 table t prn active Biotin Plus biotin-l utein 5,000 mcg- 10 mg Oral 1 table t qd active doxycycline hyclate 100 mg Oral capsu le suspend ed levofloxaci n 500 mg Oral table t suspend ed valacyclovi r 500 mg Oral 1 table t prn active Dupixent Pen 300 mg/2 mL Subcut aneous Pen Injec tor active Elocon NULL 01/07/20 08 suspend ed Vytone NULL 01/27/20 16 suspend ed Problems Problem Code Type Status Date of Diagnosis Da te of Resolution Neoplasm of uncertain behavior of skin (disorder) 77670238(SNO MED) Diagnosis active 12/15/2020 Seborrheic keratosis (disorder) 002402887(SN OMED) Diagnosis active 12/15/2020 Disorder of pigmentation (disorder) 153817685(SN OMED) Diagnosis active 12/15/2020 Hemangioma of skin and subcutaneous tissue (disorder) 275022984(SN OMED) Diagnosis active 12/15/2020 Basal cell carcinoma of truncal skin (disorder) 575059030(SN OMED) Diagnosis active 02/11/2021 Benign neoplasm of skin of left lower eyelid (disorder) 773217931975 53954(SNOMED ) Diagnosis active 02/11/2021 Atopic dermatitis (disorder) 10008224(SNO MED) Diagnosis active 03/19/2021 Eczematous dermatitis of right upper eyelid (disorder) 197261976836 101(SNOMED) Diagnosis active 03/19/2021 Eczematous dermatitis of left upper eyelid (disorder) 287400682008 109(SNOMED) Diagnosis active 03/19/2021 History of malignant neoplasm of skin (situation) 824834113(SN OMED) Diagnosis active 08/09/2021 Basal cell carcinoma of truncal skin (disorder) 665743997(SN OMED) Diagnosis active 08/09/2021 Atopic dermatitis (disorder) 03869898(SNO MED) Diagnosis active 08/09/2021 Eczematous dermatitis of right upper eyelid (disorder) 422384280806 101(SNOMED) Diagnosis active 08/09/2021 Eczematous dermatitis of left upper eyelid (disorder) 072883001419 109(SNOMED) Diagnosis active 08/09/2021 Seborrheic keratosis (disorder) 783699613(SN OMED) Diagnosis active 08/09/2021 Hemangioma of skin and subcutaneous tissue (disorder) 123102829(SN OMED) Diagnosis active 08/09/2021 Disorder of pigmentation (disorder) 605698122(SN OMED) Diagnosis active 08/09/2021 History of malignant neoplasm of skin (situation) 317108817(SN OMED) Diagnosis active 02/14/2022 Melanocytic nevus of trunk (disorder) 592626098(SN OMED) Diagnosis active 02/14/2022 Seborrheic keratosis (disorder) 736125457(SN OMED) Diagnosis active 02/14/2022 Disorder of pigmentation (disorder) 383501668(SN OMED) Diagnosis active 02/14/2022 Hemangioma of skin and subcutaneous tissue (disorder) 626621738(SN OMED) Diagnosis active 02/14/2022 Eczematous dermatitis of right upper eyelid (disorder) 503210255971 101(SNOMED) Diagnosis active 02/14/2022 Eczematous dermatitis of left upper eyelid (disorder) 712949584674 109(SNOMED) Diagnosis active 02/14/2022 Atopic dermatitis (disorder) 48165419(SNO MED) Diagnosis active 02/14/2022 Rosacea (disorder) 592114550(SN OMED) Diagnosis active 02/14/2022 Seborrheic keratosis (disorder) 598921916(SN OMED) Diagnosis active 06/14/2022 Basal cell carcinoma of skin (disorder) 569623750(SN OMED) Problem active History of skin disorder (situation) 716089479(SN OMED) Problem active History of malignant neoplasm of skin (situation) 715001374(SN OMED) Diagnosis active 01/09/2023 Melanocytic nevus (disorder) 611629288(SN OMED) Diagnosis active 01/09/2023 Seborrheic keratosis (disorder) 430401465(SN OMED) Diagnosis active 01/09/2023 Disorder of pigmentation (disorder) 447439503(SN OMED) Diagnosis active 01/09/2023 Hemangioma of skin and subcutaneous tissue (disorder) 124395208(SN OMED) Diagnosis active 01/09/2023 Eczematous dermatitis of right upper eyelid (disorder) 019412875313 101(SNOMED) Diagnosis active 01/09/2023 Eczematous dermatitis of left upper eyelid (disorder) 589149672834 109(SNOMED) Diagnosis active 01/09/2023 Atopic dermatitis (disorder) 93479897(SNO MED) Diagnosis active 01/09/2023 Rosacea (disorder) 221262616(SN OMED) Diagnosis active 01/09/2023 Actinic keratosis (disorder) (SN OMED) Diagnosis active 01/09/2023 Inflamed seborrheic keratosis (disorder) 543875529(SN OMED) Diagnosis active 01/09/2023 Neoplasm of uncertain behavior of skin (disorder) 62024905(SNO MED) Diagnosis active 01/23/2024 Seborrheic keratosis (disorder) 748679007(SN OMED) Diagnosis active 01/23/2024 Atopic dermatitis (disorder) 32299504(SNO MED) Diagnosis active 01/23/2024 Hemangioma of skin and subcutaneous tissue (disorder) 493471142(SN OMED) Diagnosis active 01/23/2024 Disorder of pigmentation (disorder) 864552200(SN OMED) Diagnosis active 01/23/2024 Melanocytic nevus (disorder) 578699698(SN OMED) Diagnosis active 01/23/2024 History of malignant neoplasm of skin (situation) 777360439(SN OMED) Diagnosis active 01/23/2024 Actinic keratosis (disorder) (SN OMED) Diagnosis active 03/06/2024 Actinic keratosis (disorder) (SN OMED) Diagnosis active 09/04/2024 Inflamed seborrheic keratosis (disorder) 160899202(SN OMED) Diagnosis active 09/04/2024 Actinic keratosis (disorder) (SN OMED) Diagnosis active 01/28/2025 Inflamed seborrheic keratosis (disorder) 193943965(SN OMED) Diagnosis active 01/28/2025 Seborrheic dermatitis (disorder) 44016284(SNO MED) Diagnosis active 01/28/2025 Hemangioma of skin and subcutaneous tissue (disorder) 449834213(SN OMED) Diagnosis active 01/28/2025 Non-thrombocytopenic purpura (disorder) 522843606(SN OMED) Diagnosis active 01/28/2025 Eczema (disorder) 52457017(SNO MED) Problem active Actinic keratosis (disorder) (SN OMED) Diagnosis active 04/28/2025 Seborrheic keratosis (disorder) 592445062(SN OMED) Diagnosis active 04/28/2025 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) 50729135(SNO MED) Diagnosis active 04/28/2025 Atopic dermatitis (disorder) 49736586(SNO MED) Diagnosis active 04/28/2025 Seborrheic dermatitis (disorder) 91410029(SNO MED) Diagnosis active 04/28/2025 Melanocytic nevus of trunk (disorder) 042320143(SN OMED) Diagnosis active 04/28/2025 Hemangioma of skin and subcutaneous tissue (disorder) 096575922(SN OMED) Diagnosis active 04/28/2025 Non-thrombocytopenic purpura (disorder) 251214333(SN OMED) Diagnosis active 04/28/2025 Disorder of pigmentation (disorder) 257800346(SN OMED) Diagnosis active 04/28/2025 Patient encounter status (finding) 492106098(SN OMED) Diagnosis active 04/28/2025 Scar conditions and fibrosis of skin (disorder) 721221331(SN OMED) Diagnosis active 04/28/2025 Results No data Encounters Service provided at [address], [facility] [address], [place], [place] [id number]. Office phone number is [phone]. Office fax number is [phone]. Encounter Diagnosis Location Date / Time Type Disc harge Status Actinic Keratoses (L57.0)Seborrheic Keratoses (L82.1)Androgenic Alopecia (L64.8)Eczema (L20.89)Seborrheic Dermatitis (L21.8)Benign Appearing Nevi (D22.5)Hall Angiomas (D18.01)Solar Purpura (D69.2)Lentigines (L81.4)Skin Education (Z71.89)Scar (L90.5) [facility] 04/28/2025 15:50:00 [place] [address] Reason For Referral No data Procedures Procedure Date Cryotherapy of skin lesion with liquid n itrogen (procedure) 04/28/2025 12:00 am UTC Destruction of premalignant skin lesion (procedure) 04/28/2025 12:00 am UTC Destruction of premalignant skin lesion (procedure) 01/28/2025 12:00 am UTC Cryotherapy of skin lesion with liquid n itrogen (procedure) 01/28/2025 12:00 am UTC Destruction of premalignant skin lesion (procedure) 09/04/2024 12:00 am UTC Cryotherapy of skin lesion with liquid n itrogen (procedure) 09/04/2024 12:00 am UTC Destruction of premalignant skin lesion (procedure) 03/06/2024 12:00 am UTC Shave biopsy (procedure) 01/23/2024 12:0 0 am UTC Cryotherapy of skin lesion with liquid n itrogen (procedure) 01/09/2023 12:00 am UTC Tumor destruction (procedure) 08/09/2021 12:00 am UTC Tumor destruction (procedure) 02/11/2021 12:00 am UTC Shave biopsy (procedure) 12/15/2020 12:0 0 am UTC Cryotherapy of skin lesion with liquid n itrogen (procedure) 12/15/2020 12:00 am UTC Documentation of past medical history (p rocedure) Documentation of past medical history (p rocedure) Documentation of past medical history (p rocedure) Documentation of past medical history (p rocedure) Documentation of past medical history (p rocedure) Documentation of past medical history (p rocedure) Documentation of past medical history (p rocedure) Documentation of past medical history (p rocedure) Documentation of past medical history (p rocedure) Documentation of past medical history (p rocedure) Documentation of past medical history (p rocedure) Documentation of past medical history (p rocedure) Documentation of past medica l history (procedure) Appendectomy Review Of Systems No Data Assessment 1.Actinic KeratosesCounselingLiquid Nitrogen: right anterior shoulder; left clavicular skin; left lateral buccal cheek; left medial posterior ankle; middle sternum; left lateral buccal cheek; Number of freeze-thaw Cycles - 2 freeze-thaw cycles; Duration of freeze thaw-cycle (seconds) - 10.2.Seborrheic KeratosesCounselingLiquid Nitrogen (Cosmetic): right lateral upper back.Additional Notes3.Androgenic AlopeciaCounselingTreatment Regimen: Plan - :Ordered blood work today.Recommended OTC treatments including:Topical Rogaine 5% once nightlyBiotin supplementNioxin shampoo/conditionerFuture consider ations:SpironolactoneOral minoxidil;.Order Tests4.EczemaCounselingPrescription: clobetasol 0.05 % topical cream TPPrescription Medication Management: Plan - :Pt was started on Dupixent by , her utility tech on August 06, 2021.She is doing well on the Dupixent. Denies any side effects.Rx today:Clobetasol 0.05% topical cream x BID for 2 weeks on, 1 week off. Repeat as needed;.5.Seborrheic DermatitisCounselingPrescription Medication Management: Plan - :Pt reports improvement since NATHALIA.Continue as needed: OTC hydrocortisone bid x 2 weeks on/1 week off;.6.Benign Appearing NeviCounseling7.Hall AngiomasCounseling8.Solar PurpuraCounseling9.QvqllxdllxPxgwypcxpi33.Skin VpkewkruwUfulttggkq66.Scar - See historical summaryCounseling Plan of Care Future visit for 04/28/2026 - Follow up in 1 year for: Skin Check - 10 minutes Code Detail Instructions 188620 Zinc, Plasma or Serum April 012024 382483 Vitamin D, 25-Hydroxy April 012024 585460 Iron and TIBC April 28 162199 CBC With Differential/Platelet D ecember 2024 564752 Ferritin April 28 089758 Testosterone,Free and Total Dece er 2024 560165 TSH+Free T4 April 28 109745 clobetasol 0.05 % topical cream Apply a thin layer twice a day to hands for 2 weeks on, 1 week off. Repeat as needed. 8019799 triamcinolone aceton sangita 0.1 % topical cream Apply twice daily to the hands. Repeat as needed for flares. Instructions * I counseled the patient regarding the following:Skin Care: Sun protective clothing and broad spectrum sunscreen can prevent the formation of Actinic Keratoses. AKs can resolve with cryotherapy, photodynamic therapy, imiquimod, topical 5-FU.Expectations: Actinic Keratoses are precancerous proliferations that occur within sun damaged skin. If untreated, a small subset of AKs can develop into Squamous Cell Carcinoma.Contact Office if: If AKs fail to resolve despite treatment, or if you develop a side effect from therapy, such as unbearable crusting, scabbing, redness and tenderness.I recommendedthe following: Broad Spectrum Sunscreen SPF 30+ * I counseled the patient regarding the following:Skin Care: Seborrheic Keratoses are benign. No treatment is necessary.Expectations: Seborrheic Keratoses are benign warty growths. Patients get more ofthem as they age. * I counseled the patient regarding the following:Hair Care: Pattern Alopecia can be treated with minoxidil or hair transplantation. Female pattern hair loss can respond to spironolactone or cyproterone acetate.Expectations: Pattern Alopecia is genetically pre-determined and slowly progressive. Female hair loss is diffuse with a widened midline part and preservation of the frontal hairline.Contact Office if: Hair loss fails to improve or worsens with treatment.I recommended the following: Minoxidil 5% topical foamThe following medication counseling was provided:Oral Minoxidil Counseling- I discussed with the patient the risks of oral minoxidil including but not limited to shortness of breath,swelling of the feet or ankles, dizziness, lightheadedness, unwanted hair growth and allergic reaction. The patient verbalized understanding of the proper use and possible adverse effects of oral minoxidil. All of the patient's questions and concerns were addressed.Spironolactone Counseling: Patient advised regarding risks of diarrhea, abdominal pain, hyperkalemia, defects (for female patients), liver toxicity and renal toxicity. The patient may need blood work to monitor liver and kidneyfunction and potassium levels while on therapy. The patient verbalized understanding of the proper u se and possible adverse effects of spironolactone. All of the patient's questions and concerns wereaddressed. * Plan: :Ordered blood work today.Recommended OTC treatments including:Topical Rogaine 5% once nightlyBiotin supplementNioxin shampoo/conditionerFuture considerations:SpironolactoneOral minoxidil. * I counseled the patient regarding the following:Skin care: Patient should bathe using lukewarm water with a mild cleanser and moisturize immediately after. Emollients should be applied at least 2-3 times daily. Avoid scented detergents or fabric softeners. Keep fingernails short. Avoid excessive hand washing.Expectations: The patient is aware that eczema is chronic in nature and can improve with moisturizers and topical steroids and worsen with stress, scented soaps, detergents, scratching, dryskin, changes in weather and skin infections.Contact office if: Eczema worsens or fails to improve despite several weeks of treatment; patient develops skin infections (such as: yellow honey colored crusts or cold sores).I recommended the following: MoisturizersThe following medication counseling was provided:Dupixent Counseling: I discussed with the patient the risks of dupilumab including but not limited to eye inflammation and irritation, cold sores, injection site reactions, allergic reactions and increased risk of parasitic infection. The patient understands that monitoring is required and they must alert us or the primary physician if symptoms of infection or other concerning signs are noted.I discussed with the patient that prolonged use of topical steroids can result in the increased appearance of superficial blood vessels (telangiectasias), lightening (hypopigmentation) and thinning of the skin (atrophy). Patient understands to avoid using high potency steroids in skin folds,the groin or the face. The patient verbalized understanding of the proper use and possible adverse effects of topical steroids. All of the patient's questions and concerns were addressed. * I counseled the patient regarding the following:Skin care: Emollients, shampoos with tar, selenium or zinc pyrithione can improve seborrheic dermatitis.Expectations: Seborrheic Dermatitis is chronic in nature with periods of remissions and flares. Flares can be triggered by stress.Contact office if: Seborrheic dermatitis worsens, or fails to improve despite several months of treatment.I recommended the following: ShampoosTopical Antifungals * I counseled the patient regarding the following:Instructions: Monthly self- skin checks to monitor for any changes in moles are recommended.Expectations: Benign Nevi are pigmented nests of cells within the skin. No treatment is necessary.Contact Office if: Any moles change in size, shape or color; itch, burn or bleed. * I counseled the patient regarding the following:Skin Care: Hall Angiomas can resolve with lasers or electrodesiccation.Expectations: Hall Angiomas are benign vascular growths. No treatment is necessary. * I counseled the patient regarding the following:Skin care: Ecchymoses usually resolve within 3-4 weeks. No treatment is necessary.Expectations: Ecchymoses are bruises that form within the skin from trauma. Patients with many ecchymoses may have skin fragility from sun damage, be on blood thinners or prednisone, or recently had surgery.Contact office if: Ecchymoses worsen with no cause that can beidentified; or if patient develops bleeding problems.I recommended the following: Serena * I counseled the patient regarding the following:Skin Care: Lentigines can resolve with broad spectrum sunscreen, sun avoidance, bleaching creams, retinoids, chemical peels and laser.Expectations: Lentigines are benign pigmented lesions that occur on sun-exposed and sun-damaged skin. They are easilytreatable.I recommended the following: Broad Spectrum Sunscreen SPF 30+ * I counseled the patient regarding the following:Sun screen (SPF 30 or greater) should be applied during peak UV exposure (between 10am and 2pm) and reapplied after exercise or swimming.The ABCDEs of melanoma were reviewed with the patient, and the importance of monthly self-examination of moles was emphasized. Should any moles change in shape or color, or itch, bleed or burn, pt will contact our office for evaluation sooner then their interval appointment.I recommended the following: Broad Spectrum Sunscreen SPF 30+Self- Skin Exams * I counseled the patient regarding the following:Instructions: Basal Cell Carcinoma can be removed via surgical excision, XRT, eletrodessication and curettage (nodulocystic or superficial BCC), Mohs, imiquimod (superficial BCC), cryotherapy, PDT (superficial BCC).Expectations: Basal Cell Carcinoma is the most common form of skin cancer. It is a very high cure rate and prognosis with removal is excellent.Contact Office if: patient develops any new lesions that fail to heal, ulcerate or bleed.I recommended the following: Broad Spectrum Sunscreen SPF 30+ Social History Code Activity Start Date End Date [id number] (SNOMED) Former smoker 03/06/1984 Sex Female Sexual orientation Unspecified Gender identity Unspecified Vital Signs No data Insurances Coverage Status Coverage Type Relationship to Subscriber Member Identifier Subscriber Identifier Group Identifier Payer Identifier Inactive 1 Self [id number] Active Self [id number] Inactive 2 Self [id number] Active Self [id number] [facility]
--- OUTSIDE RECORDS SUMMARY | 2025-04-29 17:36 | XMS_ITS | Clinical Summary ---
Author Organization [facility] Address [address] [place] [phone] Phone Care Team Providers Care Finance Teacher Name Role Phone Physician, No Pcp Primary [...] History Surgery Date Site/Laterality Comments APPENDECTOMY PROCEDURE: DE APPENDECTOMY WISDOM TOOTH EXTRACTION N/A PROCEDURE: HISTORICAL [...] Recently Relevant to Health Maintenance Insurance MEDICARE [facility] Care Teams Finance Teacher Relationship Specialty Start Date End Date Physician, No Pcp PCP - General 05/17/24
--- OUTSIDE RECORDS SUMMARY | 2025-04-29 17:36 | XMS_ITS | Clinical Summary ---
Author Organization [facility] Address [address] [place] [id number] Phone Care Team Providers Care Musician Instrumental Name Role Phone Pam Hart MD Primary [...] file Insurance MEDICARE PART A & B [facility] [employer] MEDICARE SUPPLEMENT MEDICARE PART A & B [facility] MEDICARE SUPPLEMENT [facility] SUPPLEMENT MEDICARE PART A & B [facility] MEDICARE SUPPLEMENT MEDICARE PART A & B [facility] MEDICARE SUPPLEMENT Care Teams Musician Instrumental Relationship Specialty Start Date End Date Pam Hart MD [address] [place] [id number] PCP - General Internal Medicine 04/12/23 Additional Source Comments The information contained in this document represents components of the legal health record. It is not the complete legal health record.[facility]
--- OUTSIDE RECORDS SUMMARY | 2025-04-29 17:36 | XMS_ITS | Patient Health Record ---
Author Organization [facility] Address [address] [place] [address] Care Team Providers Care Rag Willow Operator Name Role Phone JESUS POLLACK Primary Care Provider Unava Radha Tesfaye Unavailable [phone] Reason For Referral No Information Plan Of Treatment No Information Insurance Providers Payer Name Payer Address Payer Phone Subscriber Number Group Number Insured Name Patient Relationship to Insured Coverage Start Date Coverage End Date [facility] [address] [place] [id number] [phone] [id number] ABBEY SOLIS Self - patient is the insured
--- OUTSIDE RECORDS SUMMARY | 2025-04-29 17:36 | XMS_ITS | Data Portability ---
Author Organization [facility], Main Office Address [address] [facility] [address] [place] [address] Care Team Providers Care Magazine Hand Name Role Phone ALEXA HEIN OTHER Assessment [...] gynecologi st referral 2015 016 [facility], [address] [place] [address], [place], [address], 6 14:42:14 Procedures colonoscop y screening (PROC) [...] levofloxac in 500 mg tablet 2015 016 [facility] #[id number], [address] [place], [address], 8 08:37:53 Medrol (Henry) 4 mg tablets in a dose pack 2015 016 [id number] [address] [place], [address], 8 08:38:01 Patient TargetsNo targets recorded. Patient Instructions Encounter Date Encounter Id Patient Instructions Last Modified By Organization Details Last Modified Time 05/07/2015 [id number] Screening Mammogram [email or web address] Not available 05/07/2015 15:21:42 Colon Cancer Screening VMA [email or web address] Not available 05/07/2015 14:47:03 Cervical Cancer Screening [email or web address] Not available 05/07/2015 15:21:42 Medications were reviewed at this visit and reconciled. Changes in the active medications are reflected in the current medication list and discussed with patient (or caregiver) with instructions for follow up as needed. Printed medication list provided to the patient as part of the visit summary. pt uses only otc meds [email or web address] Not available 05/07/2015 14:34:22 06/10/2015 [id number] I have reviewed the note and agree with the assessment and plan of care. dontrell Not available 06/10/2015 16:44:52 07/21/2017 [id number] learning about colon cancer [email or web address] Not available 07/21/2017 11:25:01 Reason for Referral Special Education Paraprofessional Referral for Sc reening for malignant neoplasm of cervix Annual Exam Referring Physician: Jesus Thurman, Internal Medicine, Encounter Date: 05/07/2015 Jig Box Operator Referral for Screening for malignant neoplasm [...] Go To The Location Of Their Choice, [facility] 07/21/2017 20:49:33 07/22/19 18 07/21/2017 lipid panel , serum triglyceride 86 mg/dL (<150) Not Available [facility] (Centralized Electronic Ordering - All Locations) Patient Can Go To The Location Of Their Choice, [id number] 07/21/2017 20:49:33 07/22/19 18 07/21/2017 lipid panel , serum HDL chol 70 mg/dL (>39) Not Available [facility] (Centralized Electronic Ordering - All Locations) Patient Can Go To The Location Of Their Choice, [id number] 07/21/2017 20:49:33 07/22/19 18 07/21/2017 lipid panel , serum LDL cholesterol, calculated 155 mg/dL (0-130 ) high Not Available [facility] (Centralized Electronic Ordering - All Locations) Patient Can Go To The Location Of Their Choice, [id number] 07/21/2017 20:49:33 07/22/19 18 07/21/2017 lipid panel , serum non HDL cholesterol (calc) 172 mg/dL (<160) high Not Available [facility] (Centralized Electronic Ordering - All Locations) Patient Can Go To The Location Of Their Choice, [id number] 07/21/2017 20:49:33 Result Notes None recorded. Problems Name Problem SNOMED Code Status Onset Date Resolution Date Notes Provider Name and Address Organization Details Recorded Time Tick bite 62371457 Active Alexa Hein PA-C [address] [facility] [address], [place], [address], [facility] 6 15:53:28 Mencielous al problem 12912738 Active Alexa Hein PA-C [address] [facility] [address], [place], [address], [facility] 6 15:53:28 Acute sinusiti s 95302967 Active Woo Gonsalves MD [address] [facility] [address], [place], [address], [facility] 6 16:44:51 Administ ration of bacteria l and viral vaccine Completed 200711/19/2013 RECORDED 07/10/19 08 2:32PM BY JESUS FRAZIER MD, OFFICE VISIT [facility] [address] [facility] [address], [place], [address], [facility] 6 15:53:28 Administ ration of bacteria l and viral vaccine Completed 200712/09/2013 RECORDED 07/10/19 08 2:32PM BY JESUS FRAZIER MD, OFFICE VISIT [facility] [address] [address], [place], [address], [facility] 6 15:53:28 Allergic rhinitis 56383539 Active 2011 Kathya shay [facility] 8 08:38:48 Patient status finding [id number] Completed 201107/21/2017 RECORDED 03/08/20 12 1:53PM BY VICK BUCKNER MA, OFFICE VISIT Kathya shay [facility] 8 08:38:06 Screenin g for malignan t neoplasm of breast Completed 201111/19/2013 RECORDED 03/08/20 12 1:18PM BY VICK BUCKNER MA, ANNOTATI ON/ADDEN DUM Kathya shay [facility] 8 08:38:30 Chronic sinusiti s 79578865 Active 2011 Kathya shay [facility] 8 08:38:38 Adult health examinat ion Completed 201107/21/2017 RECORDED 03/08/20 12 1:54PM BY VICK BUCKNER MA, OFFICE VISIT Kathya shay, [facility] 8 08:38:33 Hyperlip idemia 54580348 Active 2011 Kathya shay, [facility] 8 08:38:42 Malaise and fatigue 680172795 Completed 201111/19/2013 RECORDED 03/08/20 12 1:18PM BY VICK BUCKNER MA, TED ON/ADDEN DUM Alexa Hein PA-C [address], [place], [address], [place] [facility] 6 15:53:28 Menopaus al symptom 27697590 Active 2011 Kathya shay, [facility] 8 08:38:27 Influenz a vaccine needed 60486136170 06 Completed 201111/19/2013 RECORDED 03/08/20 12 2:02PM BY VICK BUCKNER MA, OFFICE VISIT Alexa Hein PA-C [address] [facility] [address], [place], [address], [facility] 6 15:53:28 Adult health examinat ion Completed 201111/19/2013 RECORDED 03/08/20 12 1:18PM BY VICK BUCKNER MA, TED ON/ADDEN DUM Kathya shay [facility] 8 08:38:33 Miscarri age 32556089 Active 2011 Kathya shay [facility] 8 08:38:22 Urinary tract infectio us disease 65296178 Active 2011 Kathya shay [facility] 8 08:38:52 Vitamin D deficien cy 39929758 Completed 201111/19/2013 RECORDED 03/08/20 12 1:18PM BY VICK BUCKNER MA, ANNOTATI ON/ADDEN DUM Alexa Hein PA-C [address], [place], [address], [facility] 6 15:53:28 Screenin g for malignan t neoplasm of breast Completed 201112/09/2013 RECORDED 03/08/20 12 1:18PM BY VICK BUCKNER MA, ANNOTATI ON/ADDEN DUM Kathya Navarrete MA null, [facility] 8 08:38:30 Malaise and fatigue 690716264 Completed 201112/09/2013 RECORDED 03/08/20 12 1:18PM BY VICK BUCKNER MA, ANNOTATI ON/ADDEN DUM Alexa Hein PA-C [address], [place], [address], [facility] 6 15:53:28 Influenz a vaccine needed 53777712992 06 Completed 201112/09/2013 RECORDED 03/08/20 12 2:02PM BY VICK BUCKNER MA, OFFICE VISIT Alexa [facility]-C [address], [place], [address], [facility] 6 15:53:28 Vitamin D deficien cy 69090899 Completed 201112/09/2013 RECORDED 03/08/20 12 1:18PM BY VICK BUCKNER MA, ANNOTATI ON/ADDEN DUM Alexa Hein UT-C [address], [place], [address], [facility] 6 15:53:28 Screenin g for malignan t neoplasm of breast Completed 201207/21/2017 RECORDED 02/28/20 13 12:48PM BY MICKIE JACKSON MA, PHONE ENCOUNTE R Kathya Navarrete MA null, [facility] 8 08:38:30 Screenin g for malignan t neoplasm of cervix Completed 201207/21/2017 RECORDED 02/28/20 13 12:48PM BY MICKIE JACKSON MA, PHONE ENCOUNTE [facility] 8 08:38:15 Problem Notes None recorded. Procedures Surgical History Date Name Laterality Status Provider Name and Address Organization Details Recorded Time Breast Surgery completed Kathya Navarrete MA [facility] 07/21/2017 10:51:58 Hymenotomy completed Kathya Navarrete MA [facility] 07/21/2017 10:59:55 Imaging Results None recorded. Procedure Notes None recorded. Medical Equipment None Reported. Allergies Allergen ID Allergen Name Allergen Category Reaction Reaction Severity Criticality Documentation Date Start Date Code Code System Note Provider Name and Address Organization Details Recorded Time 60583 Substance with sulfonami de structure and antibacte rial mechanism of action (substanc e) medicatio n Not available Not available Not available 07/08/20142011 05565 8003 SNOMED REACT ION: BACTR IM, FACIA L RASH Yomaira shay, [facility] 5 11:00:53 Medications Name Sig Start Date Stop Date Status Note LastModified by Organization Details LastModified Time azithromy christen 250 mg tabs 06/10 completed Not Available Not Available Not Available amoxicill in 500 mg caps 06/10 completed [...] Details Last Updated DateTime 6 158.115 cm 69615.2 31723 g 19.8 kg/m2 99.1 [degF] 83 /min 97 % 120/68 mm[Hg] Kathya Navarrete MA [facility] 6 13:54:17 Date Recorded Body height Body weight Body mass index (BMI) Heart rate Oxygen saturation Body temperature Systolic And Diastolic Provider Name and Address Organization Details Last Updated DateTime 6 158.115 cm 38557.4 14132 g 19.7 kg/m2 83 /min 98 % 97.6 [degF] 117/76 mm[Hg] Kathya Navarrete MA [facility] 6 15:23:44 Date Recorded Body height Body mass index (BMI) Body weight Heart rate Oxygen saturation Body temperature Systolic And Diastolic Provider Name and Address Organization Details Last Updated DateTime 8 158.12 cm 20.4 kg/m2 75744.1 5 g 82 /min 100 % 99 [degF] 118/77 mm[Hg] Kath[facility] 8 10:59:26 Social History Question Answer Notes LastModified by Organizat ion Details LastModified Time Tobacco Smoking Status Former Smoker Kathya shay [facility] 05/07/2015 13:49:53 Is Blood Transfusion Acceptable [...] Children Do You Have? 2 Dtr Is Sehlley , Grandson Is Raphael Doss [email or web address] Information [...] Recorded Time Tdap 8 completed Not Available [facility] 05/18/2019 02:21:47 Td (adult), 2 Lf tetanus toxoid, preservative free, adsorbed 0 completed Not Available [facility] 11/12/2013 14:12:40 Tdap 8 completed Not Available [facility] 11/12/2013 14:12:40 Past Encounters Encounter ID Performer Location Encounter Start Date Encounter Closed Date Diagnosis/Indication Diagnosis SNOMED-CT Code Diagnosis ICD10 Code Diagnosis IMO Codes Diagnosis Note [id number] [facility] [address] [place] [address] 07/10/2007 00:00:00 [id number] auto[facility]Comm erce [address] [place] [address] 03/08/2012 00:00:00 [id number] auto[facility] erce [address] [place] [address] 03/08/2012 00:00:00 [id number] auto[facility]Comm erce [address] [place] [address] 03/08/2012 00:00:00 [id number] Jesus glass MD Main Office [address] [facility] [address] [place] [address] 05/07/2015 13:39:28 05/07/2015 14:51:38 Adult health examination 164432715 Z00.00 Screening for malignant neoplasm of colon 271341825 Z12.11 Screening for malignant neoplasm of breast 925437966 Z12.39 Screening for malignant neoplasm of cervix 595984529 Z12.4 Menopausal problem 45667 000 N95.1 [id number] Alexa Hein PA-C Main Office [address] [facility] [address] [place] [address] 06/10/2015 15:08:58 06/10/2015 15:55:41 Acute sinusitis 84937672 J01.90 Persistent sinus symptoms and sinusitis. Start Levofloxac in 500 mg qd for 1 week. Medrol dose pack as dir. . Continue Nasocort AQ and nasal saline as well as MUcinex. If recurrent, call Dr. John ENT for f/u. [id number] Jesus glass MD Main Office [address] [facility] [address] [facility] [address] 07/21/2017 10:39:58 07/21/2017 11:42:59 Adult health examination 625236198 Z00.00 Screening for malignant neoplasm of breast 650461935 Z12.39 Screening for malignant neoplasm of colon 293512123 Z12.11 Administra tion of viral vaccine 41220006 Z23 Health Concerns Section Related Observation LastModified by Organization Detai ls LastModified Time None Recorded Concern Status LastModified by Organization Details LastModified Time None Recorded Advance Directives Directive None Recorded Payers Insurance Date Sequence Insurance Name Policy Number Policy Shoemaker Covered Member ID Shoemaker Member ID Guarantor Name 07/21/2017 1 [facility] [id number] Michelle Carrillo [id number] Michelle Carrillo Notes Date Note Type Note [...] it in past.). Jesus shay [place] - [facility] 05/07/2015 14:53:21 06/10/2015 text/html ROS as noted in the HPI 60 year old female c/o 3 1/2 week onset of sinus congestion which is getting worse. Pt. went [place] [facility] [place]. Treated with Z-pack and inhaler which [...] they are thick green. Woo Gonsalves MD [address] [facility] [address], [place], [address], [facility] 06/10/2015 16:44:53 07/21/2017 text/html Generic HPI TemplateReported by Patient Jesus HillGreyson shay, [facility] 07/21/2017 12:30:28 OBGyn Episode No OBEpisode recorded.
== END 2025-04-29 13:45 | disposition home or self-care (01) ==
LOC: HO.LAB 13:44
PROVIDERS: Physician Assistant Surgical; PCP Internal Medicine; Visit Provider Student in an Organized Health Care Education/Training Program
DX: L64.8 Other androgenic alopecia (principal); Z13.21 Encounter for screening for nutritional disorder; Z13.29 Encounter for screening for other suspected endocrine disorder
CPT/HCPCS: 36415; 82306; 82728; 83540; 84402; 84403; 84439; 84443; 84630; 85025